=== PATIENT | female | born 1960 | race Caucasian/White ===

== ENCOUNTER → 2017-01-29 | Outpatient (CLI) | payer BC ==
[~2017-01-29] MED LIST: CATHETER FLUSH 10 ML SYR IV PRN; DOCU100T7 PO; FLAX100031 PO; HORMONE; IOHEXOL 350 MG/ML 100 ML (OMNIPAQUE 350) VIAL IV ONE; IOHEXOL 350 MG/ML 150 ML (OMNIPAQUE 350) VIAL IV ONE; NS 100 ML (IVPB) BAG IV ONE; PROBIOTIC1 EACH PO
[2017-01-29 17:48] LABS: ALBUMIN 4.5 G/DL (3.2-4.5); BILIRUBIN,TOTAL 0.4 MG/DL (0.1-1.0); CALCIUM 9.8 MG/DL (8.5-10.1); CREATININE SERUM 0.95 MG/DL (0.60-1.30); POTASSIUM 3.2 MMOL/L (3.6-5.0)
--- NOTE | 2017-01-29 18:57 | Diagnostic Imaging Report ---
PROCEDURE: CT angiography of the chest with contrast. TECHNIQUE: Multiple contiguous axial images were obtained through the chest after uneventful bolus administration of intravenous contrast. Reconstructed CTA MIP acquisitions were also performed. INDICATION: Shortness of breath. FINDINGS: The aorta appears normal. There are no pulmonary emboli. There is no hilar or mediastinal lymphadenopathy. The lungs are clear. IMPRESSION: Negative CTA chest. There is fatty infiltration of the liver. Dictated by: Dictated on workstation # [id number]
== END ==
LOC: RAD 17:02
PROVIDERS: ATTEND Nurse Practitioner Family
DX: R06.02 Shortness of breath (principal)
CPT/HCPCS: 36415; 71275; 80053

== ENCOUNTER → 2017-01-31 | Outpatient (CLI) | payer BC ==
[~2017-01-31] MED LIST changes: -CATHETER FLUSH 10 ML SYR IV PRN; -IOHEXOL 350 MG/ML 100 ML (OMNIPAQUE 350) VIAL IV ONE; -IOHEXOL 350 MG/ML 150 ML (OMNIPAQUE 350) VIAL IV ONE; -NS 100 ML (IVPB) BAG IV ONE
[2017-01-31 12:16] LABS: BASOPHILS # (AUTO) 0.1 10^3/uL (0.0-0.1); BASOPHILS % (AUTO) 1 % (0-10); EOSINOPHILS # (AUTO) 0.2 10^3/uL (0.0-0.3); EOSINOPHILS % (AUTO) 2 % (0-10); LYMPHOCYTES % (AUTO) 30 % (12-44); MEAN CORPUSCULAR HEMOGLOBIN 30 PG (25-34); MEAN CORPUSCULAR HGB CONC 35 G/DL (32-36); MEAN CORPUSCULAR VOLUME 87 FL (80-99); MEAN PLATELET VOLUME 10.4 FL (7.4-10.4); MONOCYTES # (AUTO) 0.7 X 10^3 (0.0-1.0); MONOCYTES % (AUTO) 7 % (0-12); NEUTROPHILS # (AUTO) 6.1 X 10^3 (1.8-7.8); NEUTROPHILS % (AUTO) 60 % (42-75); PLATELET COUNT 337 10^3/uL (130-400); RED BLOOD COUNT 5.13 10^6/uL (4.35-5.85); RED CELL DISTRIBUTION WIDTH 13.3 % (10.0-14.5); WHITE BLOOD COUNT 10.1 10^3/uL (4.3-11.0)
[2017-01-31 12:34] LABS: ERYTHROCYTE SEDIMENTATION RATE 4 MM/HR (0-30)
[2017-01-31 12:35] LABS: ALANINE AMINOTRANSFERASE 25 U/L (0-55); ALBUMIN 3.9 G/DL (3.2-4.5); ANION GAP 10 MMOL/L (5-14); ASPARTATE AMINO TRANSFERASE 18 U/L (5-34); BILIRUBIN,TOTAL 0.5 MG/DL (0.1-1.0); BLOOD UREA NITROGEN 20 MG/DL (7-18); BUN/CREATININE RATIO 18; CALCIUM 9.2 MG/DL (8.5-10.1); CARBON DIOXIDE 30 MMOL/L (21-32); CHLORIDE 97 MMOL/L (98-107); CREATININE SERUM 1.14 MG/DL (0.60-1.30); GFR ESTIMATED 49; GLUCOSE 137 MG/DL (70-105); POTASSIUM 3.7 MMOL/L (3.6-5.0); SODIUM 137 MMOL/L (135-145); TOTAL PROTEIN 6.8 G/DL (6.4-8.2); hs C REACTIVE PROTEIN 0.31 MG/DL (0.00-0.50)
[2017-01-31 12:41] LABS: BAND NEUTROPHILS 0 %; BASOPHILS % (MANUAL) 0 %; EOSINOPHILS % (MANUAL) 2 %; LYMPHOCYTES % (MANUAL) 35 %; NEUTROPHILS % (MANUAL) 57 %
[2017-01-31 12:42] LABS: REACTIVE LYMPHOCYTES 1 %
[2017-01-31 12:54] LABS: TROPONIN I < 0.30 NG/ML (<0.30)
== END ==
LOC: LAB 11:55
PROVIDERS: ATTEND Nurse Practitioner Family
DX: R07.89 Other chest pain (principal); R06.02 Shortness of breath
CPT/HCPCS: 36415; 80053; 84443; 84484; 85007; 85027; 85652; 86141

== ENCOUNTER → 2017-02-19 | Outpatient (CLI) | payer BC ==
--- NOTE | 2017-02-20 13:46 | ECHOCARDIOGRAPHY REPORT ---
DATE OF SERVICE: 02/19/2017 PROCEDURE: 2D echo report. REFERRING PHYSICIAN: Dr. Ally García and Dr. Delmy Rodriguez, CHIEF CRNA. INDICATION: Dyspnea, palpitation. MEASUREMENTS: LVID end diastolic 3.6, IVS thickness 1.0, LVPW thickness 1.0, left atrial diameter 2.9, ejection fraction 60%. FINDINGS: 1. Technical quality is good. 2. The left ventricle is normal in size with normal contractility, systolic function appeared to be normal. Estimated ejection fraction is 60%. 3. The left atrium is normal in size. No clot or thrombus were seen within the left atrium. 4. The right atrium and right ventricle are normal in size. No clot or thrombus were seen within the right side. 5. Mitral valve is normal in morphology with mild mitral regurgitation noted by carotid Doppler flow. Doppler across the mitral valve showed E-A reversal which is suggestive of diastolic dysfunction. 6. Aortic valve leaflets were not well visualized. There is no significant aortic valve stenosis or regurgitation seen. 7. The tricuspid valve is normal in morphology with mild tricuspid regurgitation noted by carotid Doppler flow, Doppler echo of the tricuspid valve. Estimated pulmonary artery pressure is 8 plus right atrial pressure. 8. Pulmonic valve is functioning normally. 9. Small pericardial effusion of no hemodynamic significance was noted. CONCLUSIONS: 1. Normal left ventricular size and systolic function. Estimated ejection fraction is 60%. 2. Diastolic dysfunction is suggested by Doppler. 3. Mild mitral and tricuspid regurgitation. 4. Estimated pulmonary artery pressure of 15 mmHg. Job ID: [id number] DocumentID: [id number] Dictated Date: 02/19/2017 20:38:21 Outside Sales Representative Date: 02/20/2017 11:42:58 Dictated By: AMISH CHAPMAN MD
== END ==
LOC: CARD 13:28
PROVIDERS: ATTEND Nurse Practitioner Family
DX: R00.2 Palpitations (principal); R06.02 Shortness of breath
CPT/HCPCS: 93306

== ENCOUNTER 2017-03-20 08:08 | Outpatient (RCR) | payer BC | END 2017-03-20 08:26 | disposition home or self-care (01) | LOC: LAB 08:08 | PROVIDERS: ATTEND Nurse Practitioner Family | DX: R05 Cough (principal); R06.00 Dyspnea, unspecified; R00.2 Palpitations | CPT/HCPCS: 87070; 87205 ==

== ENCOUNTER → 2017-04-02 | Outpatient (CLI) | payer BC | LOC: RT 12:30 | PROVIDERS: ATTEND Nurse Practitioner Family | DX: R05 Cough (principal); R06.00 Dyspnea, unspecified | CPT/HCPCS: 94060; 94726; 94729 ==

== ENCOUNTER → 2017-05-14 | Outpatient (CLI) | payer BC ==
--- NOTE | 2017-05-15 18:06 | Diagnostic Imaging Report ---
Bilateral screening mammogram 2D views with tomosynthesis. The current study was also evaluated with a Computer Aided Detection (CAD) system. INDICATION: Screening. No current complaints stated on the questionnaire. COMPARISON: 04/12/16 FINDINGS: The breasts are composed of scattered fibroglandular densities. There are occasional punctate calcifications seen. Stable oval nodule in the lateral aspect of the left breast from multiple prior exams with circumscribed margins is seen. Allowing for technique and positional differences, no suspicious change is seen. IMPRESSION: No significant change. ACR BI-RADS Category 2: Benign findings. Result letter will be mailed to the patient. Note: At least 10% of breast cancer is not imaged by mammography. Dictated by: Dictated on workstation # [id number]
== END ==
LOC: RAD 08:40
PROVIDERS: ATTEND Nurse Practitioner Family
DX: Z12.31 Encounter for screening mammogram for malignant neoplasm of breast (principal)
CPT/HCPCS: 77067

== ENCOUNTER 2017-05-26 09:30 | Outpatient (CLI) | payer BC | END 2017-05-26 09:45 | disposition home or self-care (01) | LOC: SLEEP 09:30 | PROVIDERS: ATTEND Nurse Practitioner Family | DX: G47.10 Hypersomnia, unspecified (principal) ==

== ENCOUNTER 2017-07-24 14:30 | Outpatient (RCR) | payer BC | END 2017-07-26 | disposition home or self-care (01) | LOC: PULM 14:30 | PROVIDERS: ATTEND Nurse Practitioner Family | DX: R06.02 Shortness of breath (principal); J44.9 Chronic obstructive pulmonary disease, unspecified | CPT/HCPCS: 99211 ==

== ENCOUNTER 2017-07-29 12:27 | Outpatient (RCR) | payer BC | END 2017-10-27 | disposition home or self-care (01) | LOC: PULM 12:27 | PROVIDERS: ATTEND Nurse Practitioner Family | DX: J44.9 Chronic obstructive pulmonary disease, unspecified (principal); R06.02 Shortness of breath ==

== ENCOUNTER → 2018-05-19 | Outpatient (CLI) | payer BC ==
--- NOTE | 2018-05-21 19:09 | Diagnostic Imaging Report ---
INDICATION: Digital mammogram bilateral screening with 3-D tomosynthesis. This study was compared to the prior exams of 05/14/17, 04/12/16 and 05/12/14. At this time, there are no current complaints. The current study was also evaluated with a Computer Aided Detection (CAD) system. FINDINGS: There are scattered fibroglandular densities in both breasts which could obscure a lesion. Overall, there does not appear to have been any significant change when compared to the prior exam. No primary or secondary sign of malignancy is noted. 3D tomographic images fail to show any sign of malignancy. IMPRESSION: There is no radiographic evidence for malignancy. ACR BI-RADS Category 1: Negative. Result letter will be mailed to the patient. Note: At least 10% of breast cancer is not imaged by mammography. Dictated by: Dictated on workstation # [id number]
== END ==
LOC: RAD 12:15
PROVIDERS: ATTEND Family Medicine
DX: Z12.31 Encounter for screening mammogram for malignant neoplasm of breast (principal)
CPT/HCPCS: 77067

== ENCOUNTER → 2018-07-09 | Outpatient (CLI) | payer BC ==
--- NOTE | 2018-07-09 16:09 | Diagnostic Imaging Report ---
INDICATION: Neck pain radiating to the left arm. TIME OF EXAM: 11:38 AM FINDINGS: Curvature is normal. Minimal anterolisthesis of C4 on C5 is seen. Degenerative disc disease at C6-C7 level is noted with disc space narrowing and marginal spurring. There is significant multilevel facet arthropathy bilaterally. Prevertebral tissues are normal. Odontoid appears intact. No fractures are seen. IMPRESSION: Cervical spondylosis and listhesis. No acute bony abnormality is detected. Dictated by: Dictated on workstation # [id number]
== END ==
LOC: RAD 10:59
PROVIDERS: ATTEND Family Medicine
DX: M47.22 Other spondylosis with radiculopathy, cervical region (principal); M43.12 Spondylolisthesis, cervical region
CPT/HCPCS: 72040

== ENCOUNTER 2018-11-24 16:39 | Emergency (ER) | payer BC ==
[~2018-11-24] VITALS: Ht 167.6 cm; Wt 101.2 kg
[2018-11-24] MEDS ORDERED: ADENOSINE 6 MG/2 ML (ADENOCARD) VIAL IV ONE (16:52)
[2018-11-24] MEDS ORDERED: NS IV 500 ML 500 ML ONE (16:53)
--- NOTE | 2018-11-24 17:03 | NUR ---
Administered 6 mg of Adenosine. Pt's rate slowed enough to note pt was in atrial flutter. Dr. Dykes present.
[2018-11-24 17:06] LABS: BASOPHILS # (AUTO) 0.1 10^3/uL (0.0-0.1); BASOPHILS % (AUTO) 1 % (0-10); EOSINOPHILS # (AUTO) 0.2 10^3/uL (0.0-0.3); EOSINOPHILS % (AUTO) 2 % (0-10); HEMATOCRIT 44 % (35-52); HEMOGLOBIN 14.9 G/DL (11.5-16.0); LYMPHOCYTES # (AUTO) 3.2 X 10^3 (1.0-4.0); LYMPHOCYTES % (AUTO) 32 % (12-44); MEAN CORPUSCULAR HEMOGLOBIN 29 PG (25-34); MEAN CORPUSCULAR HGB CONC 34 G/DL (32-36); MEAN CORPUSCULAR VOLUME 87 FL (80-99); MEAN PLATELET VOLUME 10.9 FL (7.4-10.4); MONOCYTES # (AUTO) 0.7 X 10^3 (0.0-1.0); MONOCYTES % (AUTO) 7 % (0-12); NEUTROPHILS # (AUTO) 5.9 X 10^3 (1.8-7.8); NEUTROPHILS % (AUTO) 59 % (42-75); PLATELET COUNT 297 10^3/uL (130-400); RED CELL DISTRIBUTION WIDTH 13.4 % (10.0-14.5)
--- NOTE | 2018-11-24 17:25 | NUR ---
Dr. Dykes and Dr. Hensley in room with pt.
[2018-11-24 17:30] LABS: CARBON DIOXIDE 25 MMOL/L (21-32); CHLORIDE 98 MMOL/L (98-107); INR 0.9 (0.8-1.4); POTASSIUM 3.2 MMOL/L (3.6-5.0); SODIUM 139 MMOL/L (135-145)
[2018-11-24 17:31] LABS: ALANINE AMINOTRANSFERASE 59 U/L (0-55); ALBUMIN 4.3 GM/DL (3.2-4.5); ALKALINE PHOSPHATASE 101 U/L (40-136); BILIRUBIN,TOTAL 0.5 MG/DL (0.1-1.0); BUN/CREATININE RATIO 17; CREATININE SERUM 0.89 MG/DL (0.60-1.30); GFR ESTIMATED > 60; GLUCOSE 124 MG/DL (70-105); MAGNESIUM 1.9 MG/DL (1.8-2.4); TOTAL PROTEIN 7.6 GM/DL (6.4-8.2)
[2018-11-24 17:38] LABS: MYOGLOBIN SERUM 33.5 NG/ML (10.0-92.0)
[2018-11-24] MEDS ORDERED: APIXABAN 5 MG (ELIQUIS) TABLET PO ONE (17:45)
[2018-11-24] MEDS ORDERED: KCL 10 MEQ TAB (MICRO K) PO ONE (17:45)
[2018-11-24] MEDS ORDERED: DILTIAZEM 120 MG (CARDIZEM CD) CAP PO ONE (17:45)
--- NOTE | 2018-11-24 17:51 | ED Cardiac General ---
History of Present Illness General Chief Complaint: Cardiac/General Problems Stated Complaint: HEART RACING Nursing Triage Note: Pt ambulatory to rm [address] Ruiz's office. Pt c/o tachycardia that began last night. Pt denies chest pain at this time. Source: patient, other (Dr. Ruiz) Exam Limitations: no limitations History of Present Illness Date Seen by Provider: Nov 24, 2018 Time Seen by Provider: 16:41 Initial Comments This ambulatory 58-year-old woman presents to the emergency room has a referral from Dr. Ruiz's office with complaints of tachycardia and shortness of breath. Pulse oximetry in the office noted a heart rate around 170. Pulse is too fast to count manually. Patient denies chest pain. Symptoms started last night and have been intermittent since. She has no history of tachycardia arrhythmias. On the clinical research monitor she has a narrow complex tachycardia. Allergies and Home Medications Allergies Coded Allergies: codeine (Verified Allergy, Unknown, 12/30/07) Home Medications Apixaban 5 Mg Tablet, 5 MG PO BID Prescribed by: NAMRATA HOWARD on 11/24/18 185 Diltiazem HCl 120 Mg Cap.er.24h, 120 MG PO DAILY Prescribed by: NAMRATA HOWARD on 11/24/18 185 Docusate Sodium 100 Mg Tablet, 100 MG PO DAILY, (Reported) Flaxseed Oil 1,000 Mg Capsule, 1,000 MG PO DAILY, (Reported) Lactobacillus Rhamnosus Gg 1 Each Capsule, 1 EACH PO DAILY, (Reported) Patient Home Medication List Home Medication List Reviewed: Yes Review of Systems Review of Systems Constitutional: no symptoms reported EENTM: No Symptoms Reported Respiratory: See HPI, Shortness of Air Cardiovascular: See HPI Gastrointestinal: No Symptoms Reported Genitourinary: No Symptoms Reported Musculoskeletal: no symptoms reported Skin: no symptoms reported Psychiatric/Neurological: No Symptoms Reported Endocrine: No Symptoms Reported Hematologic/Lymphatic: No Symptoms Reported Past Vmealfu-Lzfmvu-Uileyt Hx Patient Social History Alcohol Use: Denies Use Recreational Drug Use: No Smoking Status: Former Smoker Type Used: Cigarettes 2nd Hand Smoke Exposure: No Recent Foreign Travel: No Contact w/Someone Who Travel: No Recent Infectious Disease Expo: No Recent Hopitalizations: No Physical Abuse: No Sexual Abuse: No Past Medical History Surgeries: Yes Eye Surgery, Hysterectomy Respiratory: Yes Sleep Apnea, COPD Cardiac: No Neurological: No Reproductive Disorders: Yes Genitourinary: No Gastrointestinal: No Musculoskeletal: No Endocrine: Yes Diabetes, Insulin dep Cancer: No Psychosocial: No Integumentary: No Blood Disorders: Yes Physical Exam Vital Signs Vital Signs - First Documented 11/24/18 16:50 Temp 98.9 Pulse 170 Resp 35 B/P (MAP) 138/93 (108) Pulse Ox 96 O2 Delivery Room Air Capillary Refill : Less Than 3 Seconds Height, Weight, BMI Height: 5'6.00" Weight: 223lbs. oz. 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 Skin: Normal Color, Warm/Dry Progress/Results/Core Measures Results/Orders Lab Results Laboratory Tests Test 11/24/18 16:59 Range/Units White Blood Count 10.0 4.3-11.0 10^3/uL Red Blood Count 5.06 4.35-5.85 10^6/uL Hemoglobin 14.9 11.5-16.0 G/DL Hematocrit 44 35-52 % Mean Corpuscular Volume 87 80-99 FL Mean Corpuscular Hemoglobin 29 25-34 PG Mean Corpuscular Hemoglobin Concent 34 32-36 G/DL Red Cell Distribution Width 13.4 10.0-14.5 % Platelet Count 297 130-400 10^3/uL Mean Platelet Volume 10.9 H 7.4-10.4 FL Neutrophils (%) (Auto) 59 42-75 % Lymphocytes (%) (Auto) 32 12-44 % Monocytes (%) (Auto) 7 0-12 % Eosinophils (%) (Auto) 2 0-10 % Basophils (%) (Auto) 1 0-10 % Neutrophils # (Auto) 5.9 1.8-7.8 X 10^3 Lymphocytes # (Auto) 3.2 1.0-4.0 X 10^3 Monocytes # (Auto) 0.7 0.0-1.0 X 10^3 Eosinophils # (Auto) 0.2 0.0-0.3 10^3/uL Basophils # (Auto) 0.1 0.0-0.1 10^3/uL Prothrombin Time 12.0 L 12.2-14.7 SEC INR Comment 0.9 0.8-1.4 Activated Partial Thromboplast Time 27 24-35 SEC D-Dimer 0.52 H 0.00-0.49 UG/ML Sodium Level 139 135-145 MMOL/L Potassium Level 3.2 L 3.6-5.0 MMOL/L Chloride Level 98 98-107 MMOL/L Carbon Dioxide Level 25 21-32 MMOL/L Anion Gap 16 H 5-14 MMOL/L Blood Urea Nitrogen 15 7-18 MG/DL Creatinine 0.89 0.60-1.30 MG/DL Estimat Glomerular Filtration Rate > 60 BUN/Creatinine Ratio 17 Glucose Level 124 H 70-105 MG/DL Calcium Level 10.0 8.5-10.1 MG/DL Corrected Calcium 9.8 8.5-10.1 MG/DL Magnesium Level 1.9 1.8-2.4 MG/DL Total Bilirubin 0.5 0.1-1.0 MG/DL Aspartate Amino Transf (AST/SGOT) 39 H 5-34 U/L Alanine Aminotransferase (ALT/SGPT) 59 H 0-55 U/L Alkaline Phosphatase 101 40-136 U/L Myoglobin 33.5 10.0-92.0 NG/ML Troponin I < 0.028 <0.028 NG/ML Total Protein 7.6 6.4-8.2 GM/DL Albumin 4.3 3.2-4.5 GM/DL TSH [facility] 2.02 0.35-4.94 UIU/ML My Orders Orders - NAMRATA DUENAS MD Adenosine Injection (Adenocard Injection (11/24/18 16:52) Cbc With Automated Diff (11/24/18 16:57) Magnesium (11/24/18 16:57) Chest 1 View, Ap/Pa Only (11/24/18 16:57) Ekg Tracing (11/24/18 16:57) Cardiac Profile 1 (11/24/18 16:57) Comprehensive Metabolic Panel (11/24/18 16:57) Myoglobin Serum (11/24/18 16:57) Protime With Inr (11/24/18 16:57) Partial Thromboplastin Time (11/24/18 16:57) O2 (11/24/18 16:57) Monitor-Rhythm Ecg Trace Only (11/24/18 16:57) Saline Lock/Iv-Start (11/24/18 16:57) Thyroid Analyzer (11/24/18 16:57) Ns Iv 500 Ml (Sodium Chloride 0.9%) (11/24/18 16:53) Fibrin Degradation Products (11/24/18 17:39) Apixaban Tablet (Eliquis Tablet) (11/24/18 17:45) Diltiazem Cd 24 Hr Capsule (Cardizem Cd (11/24/18 17:45) Potassium Chloride (Tablet) (Klor Con Ta (11/24/18 17:45) Ct Angio Chest W (11/24/18 18:01) Iohexol Injection (Omnipaque 350 Mg/Ml 1 (11/24/18 18:15) Contrast Received (Contrast Received) (11/24/18 18:15) Ns (Ivpb) (Sodium Chloride 0.9% Ivpb Bag (11/24/18 18:15) Medications Given in ED Current Medications Medications Dose Ordered Sig/Shila Route Start Time Stop Time Status Last Admin Dose Admin Adenosine 6 mg STK-MED ONCE IV 11/24/18 16:52 11/24/18 16:57 DC 11/24/18 17:03 6 MG Apixaban 5 mg ONCE ONCE PO 11/24/18 17:45 11/24/18 17:46 DC 11/24/18 17:55 5 MG Diltiazem HCl 120 mg ONCE ONCE PO 11/24/18 17:45 11/24/18 17:46 DC 11/24/18 17:55 120 MG Iohexol 150 ml ONCE ONCE IV 11/24/18 18:15 11/24/18 18:38 DC 11/24/18 18:22 140 ML Potassium Chloride 40 meq ONCE ONCE PO 11/24/18 17:45 11/24/18 17:46 DC 11/24/18 17:55 40 MEQ Sodium Chloride 100 ml ONCE ONCE IV 11/24/18 18:15 11/24/18 18:38 DC 11/24/18 18:22 80 ML Sodium Chloride 500 ml @ ud STK-MED ONCE .ROUTE 11/24/18 16:53 11/24/18 16:58 DC 11/24/18 16:57 500 MLS/HR Vital Signs/I&O 11/24/18 11/24/18 16:50 19:15 Temp 98.9 98.7 Pulse 170 105 Resp 35 17 B/P (MAP) 138/93 (108) 127/50 (75) Pulse Ox 96 96 O2 Delivery Room Air Room Air Blood Pressure Mean: 108 Progress Progress Note : Progress Note Patient was thought to have SVT with a narrow complex tachycardia at a rate of around 170. She was given adenosine 6 mg in an IV push. This unmasked the atrial rhythm confirming diagnosis of atrial flutter. A short time later patient spontaneously converted from atrial flutter with RVR to sinus tachycardia. Case was discussed with Dr. Hensley who presented to the ER to assess the patient personally. He recommended starting Cardizem CD 120 mg daily along with anticoagulation with Eliquis. First doses of both medications were given in the ER. Dr. Hensley also recommended performing a d-dimer as patient remained tachycardic persistently after conversion to sinus rhythm. D- dimer was elevated and CT angiogram of the chest was obtained. EKG #1: EKG Time: 16:59 Rate: 112 Comment This EKG demonstrates atrial flutter with administration of adenosine unmasking the atrial rhythm. EKG #2: EKG Time: 17:00 Rate: 110 Comment This EKG demonstrates atrial flutter with rapid ventricular response converting to sinus tachycardia. No ST elevation or depression. Diagnostic Imaging Diagonstic Imaging: CT Plain Films/CT/US/NM/MRI: chest Comments CT angiogram of the chest viewed by me and report reviewed. See report below: NAME: BATSHEVA [facility] REC#: [id number] PT STATUS: REG ER : 1960 PHYSICIAN: NAMRATA DUENAS MD ADMIT DATE: 11/24/18/ER Draft Date of Exam:11/24/18 CT ANGIO CHEST W PROCEDURE: CT angiography of the chest with contrast. TECHNIQUE: Multiple contiguous axial images were obtained through the chest after uneventful bolus administration of intravenous contrast. 2D reconstructed CTA MIP acquisitions were also performed. INDICATION: Tachycardia. FINDINGS: The lungs are clear. There is no hilar or mediastinal lymphadenopathy. There is no effusion or pneumothorax. There are no pulmonary emboli. Aorta appears normal. Heart size is normal. There is no pericardial effusion. IMPRESSION: Negative CTA chest. Dictated on workstation # [id number] Dict: 11/24/18 1846 Trans: 11/24/18 1856 [id number] Interpreted by: MAR CARDENAS MD Departure Impression Primary Impression: Atrial flutter with rapid ventricular response Additional Impression: Hypokalemia Disposition: HOME, SELF-CARE Condition: Improved Departure-Patient Inst. Decision time for Depature: 19:00 Referrals: Imelda HENSLEY MD, DANIEL J MD (PCP/Family) Primary Care Physician Patient Instructions: Atrial Flutter Add. Discharge Instructions: Use your medications as prescribed. If you have a recurrent episode of atrial flutter with rapid heart rate, you may take an extra Cardizem cd. If this does not resolve your symptoms within 30 minutes, return to the emergency room. If you have another episode with more severe symptoms, do not wait for the second dose before coming to the ER. Follow-up with Dr. Hensley as soon as possible. Please call his office for an appointment. Return to care if you have any other concerns or problems. All discharge instructions reviewed with patient and/or family. Voiced understanding. Scripts Diltiazem HCl (Cardizem Cd) 120 Mg Cap.er.24h 120 MG PO DAILY, #30 CAP Prov: NAMRATA DUENAS MD 11/24/18 Apixaban (Eliquis) 5 Mg Tablet 5 MG PO BID, #60 TAB Prov: NAMRATA DUENAS MD 11/24/18 Copy Copies To 1: Imelda HENSLEY MD Copies To 2: TIN RUIZ MD, JOSHUA T MD Nov 24, 2018 17:51
[2018-11-24] MEDS ORDERED: RECEIVED CONTRAST (Hold Metformin) IV SCH (18:15)
[2018-11-24] MEDS ORDERED: NS 100 ML (IVPB) BAG IV ONE (18:15)
[2018-11-24] MEDS ORDERED: IOHEXOL 350 MG/ML 150 ML (OMNIPAQUE 350) VIAL IV ONE (18:15)
[2018-11-24] MEDS ORDERED: DILT120C82 PO (18:51)
[2018-11-24] MEDS ORDERED: APIX5TAB PO (18:51)
--- NOTE | 2018-11-24 18:56 | Diagnostic Imaging Report ---
PROCEDURE: CT angiography of the chest with contrast. TECHNIQUE: Multiple contiguous axial images were obtained through the chest after uneventful bolus administration of intravenous contrast. 2D reconstructed CTA MIP acquisitions were also performed. INDICATION: Tachycardia. FINDINGS: The lungs are clear. There is no hilar or mediastinal lymphadenopathy. There is no effusion or pneumothorax. There are no pulmonary emboli. Aorta appears normal. Heart size is normal. There is no pericardial effusion. IMPRESSION: Negative CTA chest. Dictated by: Dictated on workstation # [id number]
[2018-11-24 19:15] VITALS: BP 127/50
--- NOTE | 2018-11-24 19:21 | Consultation-Cardiology ---
HPI-Cardiology Cardiology Consultation: Date of Consultation 11/24/18 Date of Admission Attending Physician Admitting Physician Hans Raymond MD Consulting Physician Imelda HENSLEY MD HPI: Time Seen by a Provider: 17:15 Chief Complaint: Palpitations This is a 58 year old lady with no past cardiac history. She presents to her PCP office with tachycardia and shortness of breath. She presented then to the ER. She denies chest pain, syncope, or near syncope. Her symptoms began last night and then subsided and started again this morning. Review of Systems-Cardiology Review of Systems Constitutional: As described under HPI; No As described under HPI, No no symptoms reported, No chills, No fever, No lightheadedness Eyes: No As described under HPI, No no symptoms reported, No blindness, No blurred vision, No contact lenses, No drainage, No decreased acuity, No foreign body sensation, No pain, No vision change Ears/Nose/Throat: No As described under HPI, No no symptoms reported, No chronic hearing loss, No ear discharge, No ear pain, No nasal drainage, No ulcerations Respiratory: No no symptoms reported; As described under HPI; No As described under HPI, No cough, No orthopnea; shortness of breath; No SOB with excertion Cardiovascular: No no symptoms reported; As described under HPI; No As described under HPI, No chest pain, No edema, No irregular heart rate, No lightheadedness; palpitations Gastrointestinal: No no symptoms reported, No As described under HPI, No abdomen distended, No abdominal pain, No blood streaked bowels, No constipation , No diarrhea, No nausea, No vomiting, No stool coloration changes Genitourinary: No As described under HPI, No burning, No dysuria, No discharge , No frequency, No flank pain, No hematuria, No urgency : Yes : No Skin: No rash, No skin related problems, No ulcerations Psychiatric/Neurological: No anxiety, No depression, No seizure, No focal weakness, No syncope Hematologic: No bleeding abnormalities [id number]-[id number] Hx Patient Social History Alcohol Use: Denies Use Recreational Drug Use: No Smoking Status: Former Smoker Type Used: Cigarettes 2nd Hand Smoke Exposure: No Recent Foreign Travel: No Recent Infectious Disease Expo: No Hospitalization with Isolation: Denies Past Medical History PMH As described under Assessment. Allergies and Home Medications Allergies Coded Allergies: codeine (Verified Allergy, Unknown, 12/30/07) Home Medications Apixaban 5 Mg Tablet, 5 MG PO BID Prescribed by: NAMRATA HOWARD on 11/24/181850 Diltiazem HCl 120 Mg Cap.er.24h, 120 MG PO DAILY Prescribed by: NAMRATA HOWARD on 11/24/181850 Docusate Sodium 100 Mg Tablet, 100 MG PO DAILY, (Reported) Flaxseed Oil 1,000 Mg Capsule, 1,000 MG PO DAILY, (Reported) Lactobacillus Rhamnosus Gg 1 Each Capsule, 1 EACH PO DAILY, (Reported) Patient Home Medication List Home Medication List Reviewed: Yes Physical Exam-Cardiology Physical Exam Vital Signs/I&O 11/24/18 11/24/18 16:50 19:15 Temp 98.9 98.7 Pulse 170 105 Resp 35 17 B/P (MAP) 138/93 (108) 127/50 (75) Pulse Ox 96 96 O2 Delivery Room Air Room Air Capillary Refill : Less Than 3 Seconds Constitutional: appears stated age, AAO x 3; No apparent distress; well- developed, well-nourished HEENT: PERRL; No normal ENT inspection, No TMs normal, No pharynx normal, No scleral icterus (R), No scleral icterus (L), No pale conjunctivae (R), No pale conjunctivae (L), No photophobia, No TM abnormal (R), No TM abnormal (L), No pharyngeal erythema, No tonsillar exudate, No other, No discharge, No EOMI; hearing is well preserved; No hard of hearing; oral hygience is good; No ulceration, No xanthelasmas are seen Neck: No non-tender, No full range of motion, No supple, No normal inspection, No carotid bruit, No limited range of motion, No lymphadenopathy (R), No lymphadenopathy (L), No tender lateral, No tender midline, No thyromegaly, No other; carotid pulses are 2 + bilaterally; No with good upstrokes Respiratory: No accessory muscle use, No respiratory distress, No chest tender , No chest expansion is symmetric; chest is bilaterally symmetric; No lungs clear to percussion; lungs clear to auscultation; No crackles, No rhonchi, No rales, No stridor, No wheezing, No pleural rub, No other Cardiovascular: regular rate-rhythm; No irregularly irregular, No extra beats, No parasternal heave is noted, No JVD, No edema, No bradycardia; tachycardia; No point of maximal impulse, No cardiac thrills are palpable; S1 and S2; No gallop/S3, No gallop/S4, No diastolic murmur, No systolic murmur, No friction rub, No click, No other Gastrointestinal: No tender, No soft, No round, No distended, No pulsatile mass , No organomegaly, No guarding, No rebound, No tenderness, No hernia, No mass, No audible bowel sounds, No abnormal bowel sounds, No abdominal bruits, No spleenomegaly, No other Rectal: deferred Extremities: No normal range of motion, No non-tender, No normal inspection, No pedal edema, No calf tenderness, No normal capillary refill, No pelvis stable , No calf tenderness, No inflammation, No pedal edema, No slow capillary refill , No swelling, No other, No abrasion, No clubbing, No cyanosis, No ecchymosis, No laceration, No no lower extremity edema bilateral, No significant edema, No tenderness, No wound Neurologic/Psychiatric: no motor/sensory deficits, alert, normal mood/affect, oriented x 3, power is 5/5 both on sides Skin: No normal color, No warm/dry, No cyanosis, No cool, No diaphoresis, No damp, No ecchymosis, No jaundice, No mottled, No pallor, No rash, No tattoos/ piercings, No ulcerations, No rash on exposed areas, No ulcerations on exposed areas, No other Data Review Labs Laboratory Tests 11/24/18 16:59: White Blood Count 10.0, Red Blood Count 5.06, Hemoglobin 14.9, Hematocrit 44, Mean Corpuscular Volume 87, Mean Corpuscular Hemoglobin 29, Mean Corpuscular Hemoglobin Concent 34, Red Cell Distribution Width 13.4, Platelet Count 297, Mean Platelet Volume 10.9H, Neutrophils (%) (Auto) 59, Lymphocytes (%) (Auto) 32 , Monocytes (%) (Auto) 7, Eosinophils (%) (Auto) 2, Basophils (%) (Auto) 1, Neutrophils # (Auto) 5.9, Lymphocytes # (Auto) 3.2, Monocytes # (Auto) 0.7, Eosinophils # (Auto) 0.2, Basophils # (Auto) 0.1, Prothrombin Time 12.0L, INR Comment 0.9, Activated Partial Thromboplast Time 27, D-Dimer 0.52H, Sodium Level 139, Potassium Level 3.2L, Chloride Level 98, Carbon Dioxide Level 25, Anion Gap 16H, Blood Urea Nitrogen 15, Creatinine 0.89, Estimat Glomerular Filtration Rate > 60, BUN/Creatinine Ratio 17, Glucose Level 124H, Calcium Level 10.0, Corrected Calcium 9.8, Magnesium Level 1.9, Total Bilirubin 0.5, Aspartate Amino Transf (AST/SGOT) 39H, Alanine Aminotransferase (ALT/SGPT) 59H, Alkaline Phosphatase 101, Myoglobin 33.5, Troponin I < 0.028, Total Protein 7.6 , Albumin 4.3, TSH [place] Testing 2.02 ECG Impression ECG Comment atrial flutter with RVR A/P-Cardiology Assessment/Admission Diagnosis Atrial Flutter with RVR, Shortness of breath, Positive D Dimer, Sinus tachycardia Plan Atrial Flutter with RVR - as given adenosine 6mg iv x1 which resulted with brief AV block and typical atrial flutter waves were observed. Patient continued in Atrial flutter and then spontaneously converted to sinus tachycardia. Cardizem 120mg daily. Eliquis 5 mg bid. discussed at length about atrial flutter and afib. stroke prevention was discussed. EP study and ablation was also discussed. I will follow her in the clinic in the next 7-10 days. Positive D Dimer, Sinus tachycardia and shortness of breath - CTA negative for PE. Thank you for your consultation. Please call me if you have any questions. Estefani Hensley MD, FACP, FACC, FSCAI, FHRS, CCDS Interventional Cardiology Cardiac Electrophysiology Vascular Medicine and Endovascular Interventions Imelda HENSLEY MD Nov 24, 2018 19:21
--- NOTE | 2018-11-25 08:24 | Diagnostic Imaging Report ---
INDICATION: Arrhythmia EXAM: Portable chest at 5:19 PM FINDINGS: Heart size and pulmonary vascularity are normal. The lungs are clear. There are no effusions or pneumothoraces. IMPRESSION: Negative chest. Dictated by: Dictated on workstation # [id number]
== END 2018-11-24 19:15 | disposition home or self-care (01) ==
LOC: EDUNIT# 16:39 → ER 16:41
DX: I48.92 Unspecified atrial flutter (principal); E87.6 Hypokalemia; G47.30 Sleep apnea, unspecified; J44.9 Chronic obstructive pulmonary disease, unspecified; E11.9 Type 2 diabetes mellitus without complications; Z88.5 Allergy status to narcotic agent; Z79.01 Long term (current) use of anticoagulants; Z87.891 Personal history of nicotine dependence; Z90.710 Acquired absence of both cervix and uterus; Z98.890 Other specified postprocedural states
CPT/HCPCS: 36415; 71045; 71275; 80053; 83735; 83874; 84443; 84484; 85025; 85379; 85610; 85730; 93005; 93041

== ENCOUNTER → 2018-12-02 | Outpatient (CLI) | payer BC ==
[~2018-12-02] MED LIST changes: +APIX5TAB PO; +DILT120C82 PO
== END ==
LOC: CARD 09:26
PROVIDERS: ATTEND Internal Medicine Interventional Cardiology
DX: I48.3 Typical atrial flutter (principal); I07.1 Rheumatic tricuspid insufficiency
CPT/HCPCS: 93306

== ENCOUNTER 2018-12-11 10:30 | Outpatient (CLI) | payer BC ==
[~2018-12-11] VITALS: Ht 167.6 cm; Wt 100.2 kg
[2018-12-11] MEDS ORDERED: APIX5TAB PO (11:01)
[2018-12-11] MEDS ORDERED: DILT120C53 PO (11:01)
[2018-12-11] MEDS ORDERED: FLAX10004 PO (11:01)
[2018-12-11] MEDS ORDERED: METF-399 PO (11:01)
[2018-12-11] MEDS ORDERED: FLUT1BLS IH (11:01)
[2018-12-11] MEDS ORDERED: LACT1CAP39 PO (11:01)
[2018-12-11] MEDS ORDERED: MONT10TA24 PO (11:01)
[2018-12-11] MEDS ORDERED: HYDR50TA3 PO (11:01)
[2018-12-11] MEDS ORDERED: GLYB5TAB6 PO (11:01)
[2018-12-11] MEDS ORDERED: POTA-51 PO (11:01)
== END 2018-12-11 11:03 ==
LOC: PREOP 10:30
PROVIDERS: ATTEND Internal Medicine Interventional Cardiology
DX: Z01.818 Encounter for other preprocedural examination (principal)

== ENCOUNTER 2018-12-14 05:51 | Day surgery (SDC) | payer BC ==
[~2018-12-14] VITALS: Ht 167.6 cm; Wt 100.2 kg
[~2018-12-14 05:51] MED LIST changes: +DILT120C53 PO; +FLAX10004 PO; +FLUT1BLS IH; +GLYB5TAB6 PO; +HYDR50TA3 PO; +LACT1CAP39 PO; +METF-399 PO; +MONT10TA24 PO; +POTA-51 PO
[2018-12-14] MEDS ORDERED: NS IV 1000 ML 1,000 ML ONE (06:18)
[2018-12-14] MEDS ORDERED: NS IV 1000 ML 1,000 ML IV SCH (06:19)
[2018-12-14] MEDS ORDERED: ISOPROTERENOL 0.2 MG/100 ML D5W IV ONE (06:30)
[2018-12-14 06:46] VITALS: BP 145/86
[2018-12-14 06:51] LABS: HEMOGLOBIN 14.4 G/DL (11.5-16.0); MEAN PLATELET VOLUME 10.2 FL (7.4-10.4); RED CELL DISTRIBUTION WIDTH 13.2 % (10.0-14.5)
[2018-12-14 07:03] LABS: INR 0.9 (0.8-1.4); PROTHROMBIN TIME PATIENT 12.3 SEC (12.2-14.7)
[2018-12-14] MEDS ORDERED: MIDAZOLAM 2 MG/2 ML (VERSED) VIAL ONE (07:10)
[2018-12-14] MEDS ORDERED: fentaNYL INJECTION 100 MCG/2 ML AMP ONE ×2 (07:11→09:58)
[2018-12-14] MEDS ORDERED: proPOfol 200 MG/20 ML (DIPRIVAN) VIAL IV ONE (07:11)
[2018-12-14 07:15] LABS: ALANINE AMINOTRANSFERASE 45 U/L (0-55); ALBUMIN 4.1 GM/DL (3.2-4.5); ALKALINE PHOSPHATASE 98 U/L (40-136); BILIRUBIN,TOTAL 0.4 MG/DL (0.1-1.0); BUN/CREATININE RATIO 17; CALCIUM 9.8 MG/DL (8.5-10.1); CARBON DIOXIDE 29 MMOL/L (21-32); CHLORIDE 100 MMOL/L (98-107); CREATININE SERUM 0.87 MG/DL (0.60-1.30); GFR ESTIMATED > 60; GLUCOSE 150 MG/DL (70-105); POTASSIUM 3.2 MMOL/L (3.6-5.0); SODIUM 140 MMOL/L (135-145); TOTAL PROTEIN 7.2 GM/DL (6.4-8.2)
[2018-12-14] MEDS ORDERED: CETI10TA23 PO (07:26)
[2018-12-14] MEDS ORDERED: morphine INJ 10 MG/ML 1ML (SYR OR VIAL) IVP ONE (07:45)
[2018-12-14] MEDS ORDERED: MEPERIDINE (DEMEROL) INJ 50 MG/ML IVP ONE (07:45)
[2018-12-14] MEDS ORDERED: FLU QUADRIvalent (5+ YOA) 2018-2019 (AFLURIA) 0.5 ML IM ONE (08:00)
[2018-12-14] MEDS ORDERED: ROCURONIUM 10 MG/ML 5 ML SYRINGE IV ONE (08:24)
[2018-12-14] MEDS ORDERED: SUCCINYLCHOLINE INJ 100 MG/5 ML SYR ONE (08:24)
[2018-12-14] MEDS ORDERED: LIDOCAINE 1% INJ 20 ML 20 ML VIAL ONE (08:29)
[2018-12-14] MEDS ORDERED: HEParin (CATH LAB) 2,000 ML IV ONE (08:29)
[2018-12-14] MEDS ORDERED: PHENYLEPHRINE 100 MCG/ML 10 ML (ANESTHESIA) SYR ONE (08:32)
--- NOTE | 2018-12-14 10:57 | Cardiac Procedure Note-CS/ASA ---
Pre-Procedure Note Pre-Op Procedure Note H&P Reviewed The H&P was reviewed, patient examined and no changes noted. Date H&P Reviewed: Dec 14, 2018 Time H&P Reviewed: 08:25 Conscious Sedation Pre-Proced Time 08:25 ASA Score 3 For ASA 3 and 4: Consider anesthesia and medical clearance. Also, for patients with a history of failed moderate sedation consider anesthesia. Airway Lungs Heart ASA score ASA 1: a normal healthy patient ASA 2: a patient with a mild systemic disease (mid diabetes, controlled hypertension, obesity ASA 3: a patient with a severe systemic disease that limits activity (angina , COPD, prior Myocardial infarction) ASA 4: a patient with an incapacitating disease that is a constant threat to life (CHF, renal failure) ASA 5: a moribund patient not expected to survive 24 hrs. (ruptured aneurysm) ASA 6: a declared brain- patient whose organs are being harvested. For emergent operations, add the letter E after the classification Mallampati Classification Grade 1 Sedation Plan Analgesia, Amnesia, Plan communicated to team members, Discussed options with patient/fam, Discussed risks with patient/fam The patient is an appropriate candidate to undergo the planned procedure, sedation, and anesthesia. The patient immediately re-assessed prior to indication. Imelda PELAEZ MD Dec 14, 2018 10:57
--- NOTE | 2018-12-14 10:58 | Electrophysiology Procedure ---
EP Procedure DATE OF SERVICE:12/14/18 CARDIAC FURNITURE MAKER: Estefani Hensley MD, [facility], [facility]. INDICATION: Typical atrial flutter. PREOPERATIVE DIAGNOSIS: Typical atrial flutter. POSTOPERATIVE DIAGNOSES: Successful typical atrial flutter ablation. HISTORY: This is a 58-year-old lady who presented to the ER with very symptomatic typical atrial flutter. The patient is planned for comprehensive EP study and ablation. PROCEDURE PERFORMED: 1. Comprehensive EP study with induction. 2. Fluoroscopy. 3. CS pacing. 4. Drug infusion. 5. Ablation of typical atrial flutter. 6. Comprehensive 3D mapping with the carto system. COMPLICATION: None. ESTIMATED BLOOD LOSS: 10 mL. CONTRAST USED: None. FLUOROSCOPY TIME: 7 minutes FLUOROSCOPY DOSE: 159 mgy. SPECIMENS: None. ANESTHESIA: Done by our anesthesia colleagues. ANTICOAGULATION: Eliquis was held 3 days ago. PROCEDURE IN DETAIL: After informed consent was taken, the patient was brought to the EP lab. Anesthesia was provided by our anesthesia colleagues. The patient was draped and prepped in the usual sterile fashion. The patient presented to the EP lab in sinus rhythm. Access was gained in the right femoral vein with a 6-[place] and an 8-[place] sheath. Left access in left femoral vein was gained with 5-[place] and 6-[place] sheath respectively. High right atrial catheter was an ablation catheter, right ventricular catheter was placed, his catheter and the CS catheter were also placed. A comprehensive EP study was done including a CS pacing. Typical atrial flutter was not induced with rapid atrial pacing. A 3D electroanatomic mapping was donewith the carto system. Patient did not have dual AV slick physiology. Short run of focal atrial tachycardia with likely septal region was induced on Isuprel. However, this was only for 8-10 beats and we could not sustain it. Ablation was performed in the cavotricuspid isthmus.CS pacing and pacing from the ablation catheter at different positions on the lateral side of the ablation line were used to verify bidirectional block. We then waited for 30 minutes and rechecked and confirmed bidirectional block.Isuprel was given post-procedure, however, we could not induce atrial flutter.The patienttolerated the procedure well and did not have any complication. The patientleft the lab in sinus rhythm. Total ablation time was 447 seconds. MEASUREMENTS/EP STUDY: AH interval 890 ms, AH interval 61 ms, HV interval 39 ms, AV Wenckebach cycle length 380 ms, Retrograde Wenckebach at 260 ms, Atrial ERP 600/260 ms, Ventricular ERP 600/280 ms. post-ablation AV Wenckebach at 280 ms, Post-ablation retrograde Wenckebach when pacing at 240 ms. Post-ablation atrial ERP 450/210 ms, Post-ablation ventricular ERP was 450/220 ms. PLAN: The patient will be observed overnight and will be discharged home tomorrow with precise followup instructions. Estefani Hensley MD, RS, CCDS Cardiac Electrophysiology Imelda HENSLEY MD Dec 14, 2018 10:58 am
[2018-12-14] MEDS ORDERED: PATIENT MAY USE OWN MEDS, ALL PO SCH (11:00)
[2018-12-14] MEDS ORDERED: LACTATED RINGERS 1,000 ML IV ONE (11:05)
[2018-12-14] MEDS ORDERED: ONDANSETRON 4 MG/2 ML (SDV) Z0FRAN ONE (11:07)
[2018-12-14] MEDS ORDERED: SEVOFLURANE (ULTANE) 15 ML INHAL SOLN ONE (11:09)
[2018-12-14 12:30] VITALS: BP 131/79
[2018-12-14 12:45] VITALS: BP 129/75
[2018-12-14] MEDS: NS IV 1000 ML 1,000 ML IV SCH ×2 (12:52→22:22)
[2018-12-14] MEDS: ONDANSETRON 4 MG/2 ML (SDV) Z0FRAN IVP PRN (13:16)
--- NOTE | 2018-12-14 13:36 | Anesthesia-General Post-Op ---
General Patient Condition Mental Status/LOC: Same as Preop Cardiovascular: Satisfactory Nausea/Vomiting: Absent Respiratory: Satisfactory Pain: Controlled Complications: Absent Post Op Complications Complications None Follow Up Care/Instructions Patient Instructions None needed. Anesthesia/Patient Condition Patient Condition Patient is doing well, no complaints, stable vital signs, no apparent adverse anesthesia problems. No complications reported per nursing. МАРИЯ RIVERA CRNA Dec 14, 2018 13:35
[2018-12-14 16:00] VITALS: BP 124/70
[2018-12-14 20:00] VITALS: BP 125/55
[2018-12-14] MEDS: APIXABAN 5 MG (ELIQUIS) TABLET PO SCH (20:21)
[2018-12-14] MEDS: ACETAMINOPHEN 325 MG TABLET PO PRN (20:21)
[2018-12-15] VITALS: BP 110/55
[2018-12-15 04:00] VITALS: BP 121/65
[2018-12-15 04:30] LABS: HEMOGLOBIN 13.4 G/DL (11.5-16.0); MEAN PLATELET VOLUME 10.2 FL (7.4-10.4); RED CELL DISTRIBUTION WIDTH 13.4 % (10.0-14.5); WHITE BLOOD COUNT 8.3 10^3/uL (4.3-11.0)
[2018-12-15 04:48] LABS: BUN/CREATININE RATIO 12; CALCIUM 9.1 MG/DL (8.5-10.1); CARBON DIOXIDE 26 MMOL/L (21-32); CHLORIDE 103 MMOL/L (98-107); CREATININE SERUM 0.81 MG/DL (0.60-1.30); GFR ESTIMATED > 60; GLUCOSE 152 MG/DL (70-105); POTASSIUM 3.6 MMOL/L (3.6-5.0); SODIUM 141 MMOL/L (135-145)
[2018-12-15] MEDS: NS IV 1000 ML 1,000 ML IV SCH (07:13)
[2018-12-15] MEDS: APIXABAN 5 MG (ELIQUIS) TABLET PO SCH (08:34)
[2018-12-15] MEDS: ACETAMINOPHEN 325 MG TABLET PO PRN (08:39)
--- NOTE | 2018-12-15 19:54 | Cardiology Discharge Summary ---
Diagnosis/Chief Complaint Date of Admission 12/14/2018 Date of Discharge 12/15/2018 Admission Diagnosis Typical atrial flutter Final/Discharge Diagnosis Typical atrial flutter, successful ablation Chief Complaint/HPI Chief Complaint/HPI This is a 58-year-old lady with history of typical atrial flutter. EP study and typical atrial flutter ablation is recommended. Discharge Summary Procedures Comprehensive EP study and typical atrial flutter ablation was performed. Discharge Physical Examination Stable Hospital Course Was the Problem List Reviewed?: Yes Unremarkable Discussion & Recommendations Discussion Patient will be discharged with an event monitor. All discharge instructions were discussed at length. Patient will continue Eliquis. Follow up appt.: Dr. Hensley in 2-3 weeks. Dicharge Diet: Regular Diet Activity as Tolerated: Yes Home Medications Reviewed patient Home Medication Reconciliation performed by pharmacy medication reconciliations maintenance shop technician and/or nursing. Patients Allergies have been reviewed. Discharge Home Medications: Reviewed and agree with Discharge Medication list on patient's Discharge Instruction sheet Condition at discharge Stable. Instructions to patient/family Discussed at length with the patient and family. Imelda HENSLEY MD Dec 15, 2018 19:54
== END 2018-12-15 10:14 | disposition home or self-care (01) ==
LOC: CATH 05:51 → ICU 12:27 → CATH 12-15 10:14
PROVIDERS: ATTEND Internal Medicine Interventional Cardiology
DX: I48.3 Typical atrial flutter (principal); E11.9 Type 2 diabetes mellitus without complications; J44.9 Chronic obstructive pulmonary disease, unspecified; Z87.891 Personal history of nicotine dependence; Z79.01 Long term (current) use of anticoagulants; Z79.84 Long term (current) use of oral hypoglycemic drugs; Z79.899 Other long term (current) drug therapy
CPT/HCPCS: 36415; 80048; 80053; 82962; 85027; 85610; 85730; 87081; 93005; 93613; 93621; 93623; 93653

== ENCOUNTER 2018-12-15 10:24 | Outpatient (RCR) | payer BC ==
[~2018-12-15 10:24] MED LIST changes: +CETI10TA23 PO
== END 2019-03-15 | disposition home or self-care (01) ==
LOC: CARD 10:24
PROVIDERS: ATTEND Internal Medicine Interventional Cardiology
DX: I48.0 Paroxysmal atrial fibrillation (principal)
CPT/HCPCS: 93270

== ENCOUNTER 2019-01-28 08:21 | Day surgery (SDC) | payer BC ==
[~2019-01-28] VITALS: Ht 167.6 cm; Wt 99.8 kg
[2019-01-28] MEDS ORDERED: LIDOCAINE 1% INJ 20 ML 20 ML VIAL ONE (08:25)
--- OUTSIDE RECORDS SUMMARY | 2019-01-28 08:29 | XMS REPORT | CCD ---
Author Author [facility] Address [address] [place] [address] Phone Care Team Providers Care Catechist Name Role Phone PP Unavailable CCM Unavailable Summary Purpose Interface Exchange Insurance Providers Payer name Policy type / Coverage type Covered libertarian ID Effective Begin Date Effective End Date Blue Cross [facility] Blue Cross/[facility] [id number] Unknown Unknown Family history Father Diagnosis Age At Onset Arthritis Unknown Sister Diagnosis Age At Onset Arthritis Unknown Cancer Unknown kidney disease Unknown Mother Diagnosis Age At Onset Hypertension Unknown Stroke Unknown Osteoporosis Unknown Social History Social History Element Codes Description Effective Dates Marital status Unknown Navdeep 01/31/2017 Number of children Unknown 3 03/30/[address]: 6730744 Former smoker 03/30/2015 Allergies, Adverse Reactions, Alerts Allergies, Adverse Reactions, Alerts data not found Past Medical History Illness Codes Condition Status Onset Date Resolved Date Localized edema ICD-9 : 782.3 ICD-10: R60.0 Active 10/13/2017 Unknown Contact with and (suspected) exposure to mold (toxic) ICD-9: V87.31 ICD-10: Z77.120 Active 04/22/2017 Unknown Essential (primary) hypertension ICD-9: 401.9 ICD-10: I10 Active 06/10/2016 Unknown Mild intermittent asthma with (acute) exacerbation ICD-9: 493.12 ICD-10: J45.21 Active 04/22/2017 Unknown Shortness of breath ICD-9: 786.05 ICD-10: R06.02 Active 01/31/2017 Unknown Acute laryngopharyngitis ICD-9: 465.0 ICD-10: J06.0 Active 12/10/2016 Unknown Other allergic rhinitis ICD-9: 477.8 ICD-10: J30.89 Active 01/31/2017 Unknown Acute bronchitis, unspecified ICD-9: 466.0 ICD-10: J20.9 Active 01/24/2017 Unknown Cough ICD-9: 786.2 ICD-10: R05 Active 01/24/2017 Unknown Mixed hyperlipidemia ICD-9: 272.2 ICD-10: E78.2 Active 06/10/2016 Unknown Streptococcal pharyngitis ICD-9: 034.0 ICD-10: J02.0 Active 09/25/2015 Unknown DYSURIA ICD-9: 788.1 Active 05/03/2015 Unknown CHEST SWELLING/MASS/LUMP ICD-9: 786.6 Active 04/16/2015 Unknown Hyperlipidemia Unknown Active 03/30/2015 Unknown Hypertension Unknown Active 03/30/2015 Unknown Biceps tendonitis ICD- 9: 726.12 Active 03/29/2015 Unknown EDEMA ICD-9: 782.3 Active 03/29/2015 Unknown Elevated blood sugar ICD-9: 790.29 Active 03/29/2015 Unknown ESSENTIAL HYPERTENSION ICD-9: 401.9 Active 03/29/2015 Unknown Neck fullness ICD-9: 784.2 Active 03/29/2015 Unknown Problems Condition Codes Effective Dates Condition Status Localized edema ICD-9 : 782.3 ICD-10: R60.0 10/13/2017 Active Contact with and (suspected) exposure to mold (toxic) ICD-9: V87.31 ICD-10: Z77.120 04/22/2017 Active Essential (primary) hypertension ICD-9: 401.9 ICD-10: I10 06/10/2016 Active Mild intermittent asthma with (acute) exacerbation ICD-9: 493.12 ICD-10: J45.21 04/22/2017 Active Shortness of breath ICD-9: 786.05 ICD-10: R06.02 01/31/2017 Active Acute laryngopharyngitis ICD-9: 465.0 ICD-10: J06.0 12/10/2016 Active Other allergic rhinitis ICD-9: 477.8 ICD-10: J30.89 01/31/2017 Active Acute bronchitis, unspecified ICD-9: 466.0 ICD-10: J20.9 01/24/2017 Active Cough ICD-9: 786.2 ICD-10: R05 01/24/2017 Active Mixed hyperlipidemia ICD-9: 272.2 ICD-10: E78.2 06/10/2016 Active Streptococcal pharyngitis ICD-9: 034.0 ICD-10: J02.0 09/25/2015 Active DYSURIA ICD-9: 788.1 05/03/2015 Active CHEST SWELLING/MASS/LUMP ICD-9: 786.6 04/16/2015 Active Hyperlipidemia Unknown 03/30/2015 Active Hypertension Unknown 03/30/2015 Active Biceps tendonitis ICD- 9: 726.12 03/29/2015 Active EDEMA ICD-9: 782.3 03/29/2015 Active Elevated blood sugar ICD-9: 790.29 03/29/2015 Active ESSENTIAL HYPERTENSION ICD-9: 401.9 03/29/2015 Active Neck fullness ICD-9: 784.2 03/29/2015 Active Medications Medication Codes Instructions Start Date Stop Date Status Fill Instructions Lasix 20 mg tablet RxNorm: 575868 1 Tablet(s) PO daily 201711/01/2017 Inactive take 2 postassium pills daily while on the lasix Keflex 500 mg capsule RxNorm: 621289 1 Capsule(s) PO TID 201610/16/2017 Inactive Keflex 500 mg capsule RxNorm: 476506 1 Capsule(s) PO TID 201610/26/2017 Inactive Keflex 500 mg capsule RxNorm: 026714 1 Capsule(s) PO TID 201610/16/2017 Inactive Lasix 20 mg tablet RxNorm: 530415 1 Tablet(s) PO daily 201610/19/2017 Inactive take 2 postassium pills daily while on the lasix potassium chloride ER 20 mEq tablet,extended release RxNorm: 536672 Tablet(s) TAKE ONE TABLET BY MOUTH DAILY 10/13/2017 02/09/2018 Active Lasix 20 mg tablet RxNorm: 520968 1 Tablet(s) PO daily 201610/14/2017 Inactive take 2 postassium pills daily while on the lasix triamterene 37.5 mg-hydrochlorothiazide 25 mg tablet RxNorm: 628271 TAKE ONE AND ONE-HALF (1 1/2) TABLETS BY MOUTH DAILY 08/04/2017 12/01/2017 Active omeprazole 20 mg capsule,delayed release RxNorm: 772696 TAKE ONE CAPSULE BY MOUTH DAILY 06/17/2017 12/13/2017 Active potassium chloride ER 20 mEq tablet,extended release RxNorm: 764027 TAKE ONE TABLET BY MOUTH DAILY 06/03/20172016 Inactive ProAir RespiClick 90 mcg/actuation breath activated RxNorm: 3105628 2 INH QID as needed 04/22/2017 06/20/2017 Inactive omeprazole 20 mg capsule,delayed release RxNorm: 451305 1 Capsule(s) PO daily 04/22/2017 06/16/2017 Inactive potassium chloride ER 20 mEq tablet,extended release RxNorm: 896078 1 Tablet(s) PO daily 04/04/2017 04/03/2017 Inactive potassium chloride ER 20 mEq tablet,extended release RxNorm: 554865 1 Tablet(s) PO daily 04/04/2017 06/02/2017 Inactive Breo Ellipta 200 mcg-25 mcg/dose powder for inhalation RxNorm: 8616061 1 Puff(s) INH daily 04/03/2017 07/31/2017 Inactive triamterene 37.5 mg-hydrochlorothiazide 25 mg tablet RxNorm: 664056 1 1/2 Tablet(s ) TAKE ONE TABLET BY MOUTH DAILY 04/03/2017 08/03/2017 Inactive amoxicillin 500 mg tablet RxNorm: 501042 1 Tablet(s) PO BID 04/03/2017 Inactive Diflucan 150 mg tablet RxNorm: 966528 1 Tablet(s) PO daily 04/201702/06/2017 Inactive Ventolin HFA 90 mcg/actuation aerosol inhaler RxNorm: 520645 1 Puff(s) INH Q4-6H as needed 01/30/2017 No Stop Date Active Kenalog 40 mg/mL suspension for injection RxNorm: 4465722 1 Milliliter(s) Inj 01/24/2017 01/24/2017 Inactive Zithromax Z-Bishop 250 mg tablet RxNorm: 068525 1 Tablet(s) PO UD 01/24/2017 01/28/2017 Inactive prednisone 20 mg tablet RxNorm: 973453 1 Tablet(s) PO BID 01/2401/28/2017 Inactive triamterene 37.5 mg-hydrochlorothiazide 25 mg tablet RxNorm: 413695 TAKE ONE TABLET BY MOUTH DAILY 01/06/20172016 Inactive Zithromax Z-Bishop 250 mg tablet RxNorm: 885605 1 Tablet(s) PO UD 12/31/2016 12/31/2016 Inactive z pack as directed Augmentin 500 mg-125 mg tablet RxNorm: 271254 1 Tablet(s) PO TID 12/31/2016 12/30/2016 Inactive DC zpack Augmentin 500 mg-125 mg tablet RxNorm: 184252 1 Tablet(s) PO TID 12/31/2016 01/06/2017 Inactive DC zpack Keflex 500 mg capsule RxNorm: 134280 1 Capsule(s) PO TID 201612/15/2016 Inactive Keflex 500 mg capsule RxNorm: 952974 1 Capsule(s) PO TID 201612/22/2016 Inactive triamterene 37.5 mg-hydrochlorothiazide 25 mg tablet RxNorm: 229351 TAKE ONE TABLET BY MOUTH DAILY 07/04/20162016 Inactive triamterene 37.5 mg-hydrochlorothiazide 25 mg tablet RxNorm: 731350 TAKE ONE TABLET BY MOUTH DAILY 01/01/20162015 Inactive amoxicillin 500 mg tablet RxNorm: 814376 1 Tablet(s) PO BID 10/201410/05/2015 Inactive Bactrim DS 800 mg-160 mg tablet RxNorm: 185291 1 Tablet(s) PO BID 05/04/2015 05/03/2015 Inactive fluconazole 150 mg tablet RxNorm: 639564 1 Tablet(s) PO daily 05/04/2015 05/03/2015 Inactive fluconazole 150 mg tablet RxNorm: 453110 1 Tablet(s) PO daily 05/04/2015 05/10/2015 Inactive Bactrim DS 800 mg-160 mg tablet RxNorm: 357161 1 Tablet(s) PO BID 05/04/2015 05/13/2015 Inactive triamterene 37.5 mg-hydrochlorothiazide 25 mg tablet RxNorm: 820831 1 Tablet(s) PO daily 03/30/2015 12/24/2015 Inactive Probiotic (S.boulardii) oral RxNorm: 908579 oral No Start Date Active melatonin 10 mg tablet RxNorm: 1577945 1 Tablet(s) PO QHS as needed No Start Date Active flaxseed oil RxNorm: 008976 miscellaneous No Start Date Active alprazolam 0.25 mg tablet RxNorm: 506647 1 Tablet(s) PO PRN No Start Date Active [employer] oral RxNorm: oral No Start Date Active Zithromax Z-Bishop 250 mg tablet RxNorm: 379392 1 Tablet(s) PO UD No Start Date 12/30/2016 Inactive z pack as directed Ventolin HFA 90 mcg/actuation aerosol inhaler RxNorm: 069379 1 Puff(s) INH Q4-6H as needed No Start Date 01/29/2017 Inactive triamterene 37.5 mg-hydrochlorothiazide 25 mg tablet RxNorm: 633924 1 Tablet(s) PO daily No Start Date 03/29/2015 Inactive Medication Administered Medication Codes Instructions Start Date Status Kenalog 40 mg/mL suspension for injection RxNorm: 6010160 1Milliliter 01/24/2017 No longer Active Immunizations Vaccine Codes Date Status Influenza CVX: 141 07/03/2017 completed Pneumococcal CVX: 33 07/03/2017 completed Zoster CVX: 121 12/26/2011 completed Assessments Condition Codes Effective Dates Localized edema ICD-10: R60.0 ICD-9: 782.3 10/13/2017 Mild intermittent asthma with (acute) exacerbation ICD-10: J45.21 ICD-9: 493.12 04/22/2017 Shortness of breath ICD-10: R06.02 ICD-9: 786.05 04/22/2017 Essential (primary) hypertension ICD-10: I10 ICD-9: 401.9 04/22/2017 Contact with and (suspected) exposure to mold (toxic) ICD-10 : Z77.120 ICD-9: V87.31 04/22/2017 Acute laryngopharyngitis ICD-10: J06.0 ICD-9: 465.0 03/25/2017 Other allergic rhinitis ICD-10: J30.89 ICD-9: 477.8 01/31/2017 Palpitations ICD-10: R00.2 ICD-9: 785.1 01/31/2017 Otalgia, bilateral ICD-10: H92.03 ICD-9: 388.70 01/31/2017 Gastro-esophageal reflux disease without esophagitis ICD-10 : K21.9 ICD-9: 530.81 01/31/2017 Candidal stomatitis ICD-10: B37.0 ICD-9: 112.0 01/31/2017 Acute bronchitis, unspecified ICD-10: J20.9 ICD-9: 466.0 01/24/2017 Cough ICD-10: R05 ICD-9: 786.2 01/24/2017 Mixed hyperlipidemia ICD-10: E78.2 ICD-9: 272.2 06/11/2016 Streptococcal pharyngitis ICD-10: J02.0 ICD-9: 034.0 09/26/2015 DYSURIA ICD-9: 788.1 05/04/2015 Neck fullness ICD-9: 784.2 04/17/2015 CHEST SWELLING/MASS/LUMP ICD-9: 786.6 Biceps tendonitis ICD-9: 726.12 2014 ESSENTIAL HYPERTENSION ICD-9: 401.9 03/30 EDEMA ICD-9: 782.3 03/30/2015 Elevated blood sugar ICD-9: 790.29 2014 Reason For Visit Reason For Visit Effective Dates Notes edema 10/13/2017 shortness of breath 04/22/2017 sore throat 03/25/2017 cough 01/31/2017 cough 01/29/2017 cough 01/24/2017 sore throat 12/10/2016 hypertension 06/11/2016 cough 09/26/2015 shoulder pain 04/17/2015 shoulder pain 03/30/2015 Results Observation Observation Code Item Item Code Result Date Metabolic Ord15 NA 138 mEq/L 05/01/2017 Metabolic Ord15 K 3.6 mEq/L 05/01/2017 Metabolic Ord15 CL 99 mEq/L 05/01/2017 Metabolic Ord15 CO2 30.0 mEq/L 05/01/2017 Metabolic Ord15 GLUCOSE 99 mg/dL 05/01/2017 Metabolic Ord15 BUN 12 mg/dL 05/01/2017 Metabolic Ord15 Creat 0.8 mg/dL 05/01/2017 Metabolic Ord15 B/C Ratio 16.0 Ratio 05/01/2017 Metabolic Ord15 eGFR 84 ml/min/1.73m2 05/01/2017 Metabolic Ord15 Osmo 275 mOsmo 05/01/2017 Metabolic Ord15 ANION GAP 13 05/01/2017 Metabolic Ord15 CALCIUM 9.5 mg/dL 05/01/2017 Metabolic Ord15 NA 139 mEq/L 03/27/2017 Metabolic Ord15 K 3.3 mEq/L 03/27/2017 Metabolic Ord15 CL 99 mEq/L 03/27/2017 Metabolic Ord15 CO2 31.0 mEq/L 03/27/2017 Metabolic Ord15 GLUCOSE 182 mg/dL 03/27/2017 Metabolic Ord15 BUN 15 mg/dL 03/27/2017 Metabolic Ord15 Creat 0.8 mg/dL 03/27/2017 Metabolic Ord15 B/C Ratio 20.0 Ratio 03/27/2017 Metabolic Ord15 eGFR 84 ml/min/1.73m2 03/27/2017 Metabolic Ord15 Osmo 283 mOsmo 03/27/2017 Metabolic Ord15 ANION GAP 12 03/27/2017 Metabolic Ord15 CALCIUM 8.9 mg/dL 03/27/2017 C RAP A SC [id number] Strep A Negative 03/25/2017 Cbc With Differential Ord2 WBC 8.22 K/ul 02/10/2017 Cbc With Differential Ord2 RBC 4.95 M/ul 02/10/2017 Cbc With Differential Ord2 HGB 14.9 g/dl 02/10/2017 Cbc With Differential Ord2 HCT 43.2 % 02/10/2017 Cbc With Differential Ord2 Neut% 53.1 % 02/10/2017 Cbc With Differential Ord2 Lymph% 36.6 % 02/10/2017 Cbc With Differential Ord2 MCV 87.3 fl 02/10/2017 Cbc With Differential Ord2 MCH 30.1 pg 02/10/2017 Cbc With Differential Ord2 [place]% 7.5 % 02/10/2017 Cbc With Differential Ord2 Eos% 2.1 % 02/10/2017 Cbc With Differential Ord2 MCHC 34.5 pg 02/10/2017 Cbc With Differential Ord2 Baso% 0.7 % 02/10/2017 Cbc With Differential Ord2 PLT 295 K/ul 02/10/2017 Cbc With Differential Ord2 RDW 13.3 % 02/10/2017 Cbc With Differential Ord2 Neut ABS# 4.36 K/ul 02/10/2017 Cbc With Differential Ord2 Lymph ABS# 3.01 K/ul 02/10/2017 Cbc With Differential Ord2 [place] ABS# 0.6 K/ul 02/10/2017 Cbc With Differential Ord2 Eos ABS# 0.2 K/ul 02/10/2017 Cbc With Differential Ord2 Baso ABS# 0.1 K/ul 02/10/2017 C RAP A SC [id number] Strep A Negative 12/10/2016 %Hba1C Ofv079 % HbA1c 62105-9 6.3 % 06/10/2016 %Hba1C Awq631 Gluc Ave 134 mg/dL 06/10/2016 Tsh Ord6 hTSH II 1.48 uIU/mL 06/10/2016 Cbc With Differential Ord2 WBC 6.77 K/ul 06/10/2016 Cbc With Differential Ord2 RBC 5.15 M/ul 06/10/2016 Cbc With Differential Ord2 HGB 15.4 g/dl 06/10/2016 Cbc With Differential Ord2 HCT 44.4 % 06/10/2016 Cbc With Differential Ord2 Neut% 46.9 % 06/10/2016 Cbc With Differential Ord2 MCV 86.2 fl 06/10/2016 Cbc With Differential Ord2 Lymph% 42.1 % 06/10/2016 Cbc With Differential Ord2 MCH 29.9 pg 06/10/2016 Cbc With Differential Ord2 [place]% 7.1 % 06/10/2016 Cbc With Differential Ord2 Eos% 3.0 % 06/10/2016 Cbc With Differential Ord2 MCHC 34.7 pg 06/10/2016 Cbc With Differential Ord2 Baso% 0.9 % 06/10/2016 Cbc With Differential Ord2 PLT 323 K/ul 06/10/2016 Cbc With Differential Ord2 Neut ABS# 3.18 K/ul 06/10/2016 Cbc With Differential Ord2 RDW 13.5 % 06/10/2016 Cbc With Differential Ord2 Lymph ABS# 2.85 K/ul 06/10/2016 Cbc With Differential Ord2 [place] ABS# 0.5 K/ul 06/10/2016 Cbc With Differential Ord2 Eos ABS# 0.2 K/ul 06/10/2016 Cbc With Differential Ord2 Baso ABS# 0.1 K/ul 06/10/2016 Comp Metabolic Cug111 NA 141 mEq/L 06/10/2016 Comp Metabolic Csc207 K 3.7 mEq/L 06/10/2016 Comp Metabolic Gym649 CL 100 mEq/L 06/10/2016 Comp Metabolic Cji414 CO2 33.0 mEq/L 06/10/2016 Comp Metabolic Uzg993 ANION GAP 12 06/10/2016 Comp Metabolic Bmx022 GLUCOSE 128 mg/dL 06/10/2016 Comp Metabolic Eny465 Creat 0.8 mg/dL 06/10/2016 Comp Metabolic Frs632 eGFR 76 ml/min/1.73m2 06/10/2016 Comp Metabolic Tuo396 BUN 14 mg/dL 06/10/2016 Comp Metabolic Wpz925 B/C Ratio 17.1 Ratio 06/10/2016 Comp Metabolic Fri767 CALCIUM 9.5 mg/dL 06/10/2016 Comp Metabolic Kjr783 ALK PHOS 109 U/L 06/10/2016 Comp Metabolic Myb527 AST(SGOT) 16 U/L 06/10/2016 Comp Metabolic Xof859 ALT(SGPT) 20 U/L 06/10/2016 Comp Metabolic Efc789 BILI T 0.5 mg/dL 06/10/2016 Comp Metabolic Mad811 ALBUMIN 4.1 g/dL 06/10/2016 Comp Metabolic Nga107 TPRO 6.8 g/dL 06/10/2016 Comp Metabolic Lzc788 GLOB 2.7 g/dL 06/10/2016 Comp Metabolic Oso837 A/G Ratio 1.5 Ratio 06/10/2016 Comp Metabolic Bdq678 Osmo 283 mOsmo 06/10/2016 Lipid Ord30 CHOL 260 mg/dL 06/10/2016 Lipid Ord30 HDL 57.0 mg/dl 06/10/2016 Lipid Ord30 TRIG 205 mg/dL 06/10/2016 Lipid Ord30 LDL 162 mg/dL 06/10/2016 Lipid Ord30 C/HDL 4.6 Ratio 06/10/2016 Review of Systems System Result Effective Dates Constitutional No recent illness 2016 Constitutional No chills 10/13/2017 Constitutional No diaphoresis 10/13/2017 Constitutional No fever 10/13/2017 Eyes No eye erythema 10/13/2017 Ears/Nose/Throat/Neck No nasal discharge 10/13/2017 Ears/Nose/Throat/Neck No nasal allergies 10/13/2017 Cardiovascular No chest pain/pressure Cardiovascular No dyspnea 10/13/2017 Cardiovascular edema 10/13/2017 Cardiovascular No near-syncope/dizziness 10/13/2017 Cardiovascular No palpitations 2016 Respiratory No cough 10/13/2017 Respiratory No chest congestion 2016 Gastrointestinal No abdominal pain 2016 Dermatologic No rash 10/13/2017 Neurologic No alteration of consciousness 10/13/2017 Neurologic No mental status change 2016 Constitutional No chills 04/22/2017 Constitutional No diaphoresis 04/22/2017 Constitutional fatigue 04/22/2017 Eyes No eye discharge 04/22/2017 Eyes No eye erythema 04/22/2017 Cardiovascular No chest pain/pressure Respiratory cough 04/22/2017 Respiratory dyspnea 04/22/2017 Gastrointestinal No abdominal pain 2016 Gastrointestinal No constipation 2016 Gastrointestinal No diarrhea 04/22/2017 Gastrointestinal gastroesophageal reflux 04/22/2017 Dermatologic No rash 04/22/2017 Neurologic No alteration of consciousness 04/22/2017 Neurologic No mental status change 2016 Ears/Nose/Throat/Neck No dizziness 2016 Cardiovascular dyspnea 04/22/2017 Cardiovascular No edema 04/22/2017 Cardiovascular exercise intolerance 04/22 Cardiovascular fatigue 04/22/2017 Respiratory No productive sputum 2016 Psychiatric No anxiety 04/22/2017 Psychiatric No depression 04/22/2017 Constitutional recent illness 03/25/2017 Constitutional No anorexia 03/25/2017 Constitutional No night sweats 2016 Constitutional No chills 03/25/2017 Constitutional No diaphoresis 03/25/2017 Constitutional fatigue 03/25/2017 Constitutional No fever 03/25/2017 Constitutional No insomnia 03/25/2017 Constitutional No malaise 03/25/2017 Constitutional No weight loss 03/25/2017 Constitutional No weight gain 03/25/2017 Eyes No eye erythema 03/25/2017 Eyes No eye discharge 03/25/2017 Ears/Nose/Throat/Neck No dizziness 2016 Ears/Nose/Throat/Neck headache 2016 Ears/Nose/Throat/Neck nasal discharge Ears/Nose/Throat/Neck otalgia 03/25/2017 Ears/Nose/Throat/Neck sinus congestion Ears/Nose/Throat/Neck sore throat 2016 Cardiovascular No chest pain/pressure Cardiovascular dyspnea 03/25/2017 Respiratory No productive sputum 2016 Respiratory No chest congestion 2016 Respiratory cough 03/25/2017 Gastrointestinal No abdominal pain 2016 Genitourinary/Nephrology No flank pain Genitourinary/Nephrology No dysuria 03/25 Musculoskeletal No joint complaint 2016 Dermatologic No rash 03/25/2017 Neurologic No alteration of consciousness 03/25/2017 Constitutional recent illness 01/31/2017 Constitutional No chills 01/31/2017 Constitutional No diaphoresis 01/31/2017 Constitutional fatigue 01/31/2017 Eyes No eye discharge 01/31/2017 Eyes No eye erythema 01/31/2017 Ears/Nose/Throat/Neck nasal allergies 04/2017 Ears/Nose/Throat/Neck nasal discharge 04/2017 Cardiovascular No chest pain/pressure 04/2017 Respiratory cough 01/31/2017 Respiratory dyspnea 01/31/2017 Gastrointestinal No abdominal pain 2016 Gastrointestinal No constipation 2016 Gastrointestinal No diarrhea 01/31/2017 Dermatologic No rash 01/31/2017 Ears/Nose/Throat/Neck otalgia 01/31/2017 Ears/Nose/Throat/Neck sore throat 2016 Respiratory productive sputum 01/31/2017 Neurologic No alteration of consciousness 01/31/2017 Neurologic No mental status change 2016 Gastrointestinal gastroesophageal reflux 01/31/2017 Constitutional recent illness 01/29/2017 Constitutional No chills 01/29/2017 Constitutional fatigue 01/29/2017 Eyes No eye discharge 01/29/2017 Eyes No eye erythema 01/29/2017 Ears/Nose/Throat/Neck nasal allergies 02/2017 Ears/Nose/Throat/Neck nasal discharge 02/2017 Cardiovascular No chest pain/pressure 02/2017 Respiratory productive sputum 01/29/2017 Respiratory cough 01/29/2017 Respiratory dyspnea 01/29/2017 Gastrointestinal No abdominal pain 2016 Neurologic No alteration of consciousness 01/29/2017 Neurologic No mental status change 2016 Constitutional recent illness 01/24/2017 Constitutional No anorexia 01/24/2017 Constitutional No night sweats 2016 Constitutional No chills 01/24/2017 Constitutional No diaphoresis 01/24/2017 Constitutional fatigue 01/24/2017 Constitutional No insomnia 01/24/2017 Constitutional No fever 01/24/2017 Constitutional No malaise 01/24/2017 Constitutional No weight loss 01/24/2017 Constitutional No weight gain 01/24/2017 Eyes No eye erythema 01/24/2017 Eyes No eye discharge 01/24/2017 Ears/Nose/Throat/Neck No dizziness 2016 Ears/Nose/Throat/Neck No headache 2016 Ears/Nose/Throat/Neck nasal allergies Ears/Nose/Throat/Neck nasal discharge Ears/Nose/Throat/Neck sinus congestion Cardiovascular No chest pain/pressure Cardiovascular No claudication 2016 Cardiovascular No dyspnea 01/24/2017 Cardiovascular No edema 01/24/2017 Respiratory productive sputum 01/24/2017 Respiratory cough 01/24/2017 Gastrointestinal No abdominal pain 2016 Gastrointestinal No constipation 2016 Gastrointestinal No diarrhea 01/24/2017 Genitourinary/Nephrology No dysuria 01/24 Musculoskeletal No joint complaint 2016 Dermatologic No rash 01/24/2017 Respiratory dyspnea 01/24/2017 Constitutional recent illness 12/10/2016 Constitutional No anorexia 12/10/2016 Constitutional No night sweats 2016 Constitutional No chills 12/10/2016 Constitutional No diaphoresis 12/10/2016 Constitutional No fatigue 12/10/2016 Constitutional No fever 12/10/2016 Constitutional No insomnia 12/10/2016 Constitutional No malaise 12/10/2016 Constitutional No weight loss 12/10/2016 Constitutional No weight gain 12/10/2016 Eyes No eye discharge 12/10/2016 Eyes No eye erythema 12/10/2016 Ears/Nose/Throat/Neck No dizziness 2016 Ears/Nose/Throat/Neck No headache 2016 Ears/Nose/Throat/Neck nasal discharge Ears/Nose/Throat/Neck nasal allergies Ears/Nose/Throat/Neck No otalgia 2016 Ears/Nose/Throat/Neck No sinus congestion 12/10/2016 Ears/Nose/Throat/Neck sore throat 2016 Cardiovascular No chest pain/pressure Cardiovascular No dyspnea 12/10/2016 Respiratory No cough 12/10/2016 Gastrointestinal No abdominal pain 2016 Gastrointestinal No constipation 2016 Gastrointestinal No diarrhea 12/10/2016 Genitourinary/Nephrology No dysuria 12/10 Musculoskeletal No joint complaint 2016 Dermatologic No rash 12/10/2016 Constitutional No recent illness 2015 Constitutional No anorexia 06/11/2016 Constitutional No night sweats 2015 Constitutional No chills 06/11/2016 Constitutional No diaphoresis 06/11/2016 Constitutional fatigue 06/11/2016 Constitutional No fever 06/11/2016 Constitutional No insomnia 06/11/2016 Constitutional No malaise 06/11/2016 Constitutional No weight loss 06/11/2016 Constitutional No weight gain 06/11/2016 Eyes No eye discharge 06/11/2016 Eyes No eye erythema 06/11/2016 Ears/Nose/Throat/Neck No dizziness 2015 Ears/Nose/Throat/Neck No headache 2015 Cardiovascular No chest pain/pressure Cardiovascular No dyspnea 06/11/2016 Cardiovascular edema 06/11/2016 Respiratory No cough 06/11/2016 Gastrointestinal No abdominal pain 2015 Gastrointestinal constipation 06/11/2016 Gastrointestinal No diarrhea 06/11/2016 Gastrointestinal No nausea 06/11/2016 Genitourinary/Nephrology No dysuria 06/11 Musculoskeletal shoulder pain 06/11/2016 Dermatologic No rash 06/11/2016 Neurologic No alteration of consciousness 06/11/2016 Psychiatric anxiety 06/11/2016 Psychiatric No depression 06/11/2016 Endocrine No dry or coarse skin 2015 Musculoskeletal back pain 06/11/2016 Musculoskeletal joint complaint 2015 Constitutional recent illness 09/26/2015 Constitutional No anorexia 09/26/2015 Constitutional No night sweats 2014 Constitutional No chills 09/26/2015 Constitutional No diaphoresis 09/26/2015 Constitutional No fatigue 09/26/2015 Constitutional No fever 09/26/2015 Constitutional No insomnia 09/26/2015 Constitutional No malaise 09/26/2015 Constitutional No weight loss 09/26/2015 Constitutional No weight gain 09/26/2015 Eyes No eye discharge 09/26/2015 Eyes No eye erythema 09/26/2015 Ears/Nose/Throat/Neck No dizziness 2014 Ears/Nose/Throat/Neck headache 2014 Ears/Nose/Throat/Neck No nasal allergies 09/26/2015 Ears/Nose/Throat/Neck No nasal discharge 09/26/2015 Ears/Nose/Throat/Neck otalgia 09/26/2015 Ears/Nose/Throat/Neck sinus congestion Ears/Nose/Throat/Neck sore throat 2014 Cardiovascular No chest pain/pressure 10/2014 Cardiovascular No dyspnea 09/26/2015 Cardiovascular No edema 09/26/2015 Respiratory productive sputum 09/26/2015 Respiratory chest congestion 09/26/2015 Respiratory cough 09/26/2015 Gastrointestinal No abdominal pain 2014 Gastrointestinal No constipation 2014 Gastrointestinal No diarrhea 09/26/2015 Genitourinary/Nephrology No dysuria 09/26 Musculoskeletal No joint complaint 2014 Dermatologic No rash 09/26/2015 Neurologic No alteration of consciousness 09/26/2015 Constitutional No recent illness 2014 Constitutional No anorexia 04/17/2015 Constitutional No night sweats 2014 Constitutional No chills 04/17/2015 Constitutional No diaphoresis 04/17/2015 Constitutional No fatigue 04/17/2015 Constitutional No fever 04/17/2015 Constitutional No insomnia 04/17/2015 Constitutional No malaise 04/17/2015 Constitutional No weight loss 04/17/2015 Constitutional No weight gain 04/17/2015 Eyes No eye discharge 04/17/2015 Eyes No eye erythema 04/17/2015 Ears/Nose/Throat/Neck No dizziness 2014 Ears/Nose/Throat/Neck No headache 2014 Cardiovascular No chest pain/pressure Cardiovascular No dyspnea 04/17/2015 Cardiovascular edema 04/17/2015 Respiratory No cough 04/17/2015 Gastrointestinal No abdominal pain 2014 Gastrointestinal No diarrhea 04/17/2015 Gastrointestinal No nausea 04/17/2015 Genitourinary/Nephrology No dysuria 04/17 Musculoskeletal shoulder pain 04/17/2015 Dermatologic No rash 04/17/2015 Neurologic No alteration of consciousness 04/17/2015 Psychiatric No anxiety 04/17/2015 Psychiatric No depression 04/17/2015 Endocrine No dry or coarse skin 2014 Constitutional No recent illness 2014 Constitutional No anorexia 03/30/2015 Constitutional No night sweats 2014 Constitutional No chills 03/30/2015 Constitutional No diaphoresis 03/30/2015 Constitutional No fatigue 03/30/2015 Constitutional No fever 03/30/2015 Constitutional No insomnia 03/30/2015 Constitutional No malaise 03/30/2015 Constitutional No weight loss 03/30/2015 Constitutional No weight gain 03/30/2015 Eyes No eye discharge 03/30/2015 Eyes No eye erythema 03/30/2015 Ears/Nose/Throat/Neck No dizziness 2014 Ears/Nose/Throat/Neck No headache 2014 Cardiovascular No chest pain/pressure 01/2015 Cardiovascular No dyspnea 03/30/2015 Cardiovascular edema 03/30/2015 Respiratory No cough 03/30/2015 Gastrointestinal No abdominal pain 2014 Gastrointestinal constipation 03/30/2015 Gastrointestinal No diarrhea 03/30/2015 Gastrointestinal No nausea 03/30/2015 Genitourinary/Nephrology No dysuria 03/30 Musculoskeletal shoulder pain 03/30/2015 Dermatologic No rash 03/30/2015 Neurologic No alteration of consciousness 03/30/2015 Endocrine No dry or coarse skin 2014 Psychiatric No anxiety 03/30/2015 Psychiatric No depression 03/30/2015 Physical Exam Exam Name System Name Item Name Status Result Effective Dates Notes Full Exam - General 1994 Constitutional general appearance Overall: well developed 10/13/2017 None Full Exam - General 1994 Constitutional general appearance Overall: in no acute distress 10/13/2017 None Full Exam - General 1994 Constitutional general appearance Overall: well nourished 10/13/2017 None Full Exam - General 1994 Eyes conjunctiva /eyelids Overall: conjunctiva clear 10/13/2017 None Full Exam - General 1994 Eyes conjunctiva /eyelids Overall: cornea clear 10/13/2017 None Full Exam - General 1994 Eyes conjunctiva /eyelids Overall: eyelids normal 10/13/2017 None Full Exam - General 1994 Eyes pupils and irises Overall: pupils equal, round, reactive to light and accomodation 10/13/2017 None Full Exam - General 1994 Ears/Nose/Throat lips/teeth/gingiva Overall: benign lips 10/13/2017 None Full Exam - General 1994 Ears/Nose/Throat oral cavity/pharynx/larynx Overall: oral mucosa clear 10/13/2017 None Full Exam - General 1994 Respiratory auscultation Overall: breath sounds clear bilaterally 10/13/2017 None Full Exam - General 1994 Respiratory respiratory effort/rhythm Overall: no retractions 10/13/2017 None Full Exam - General 1994 Respiratory respiratory effort/rhythm Overall: normal rate 10/13/2017 None Full Exam - General 1994 Cardiovascular auscultation of heart Overall: regular rate 10/13/2017 None Full Exam - General 1994 Cardiovascular auscultation of heart Overall: normal heart sounds 10/13/2017 None Full Exam - General 1994 Cardiovascular auscultation of heart Overall: no murmurs 10/13/2017 None Full Exam - General 1994 Cardiovascular extremities Edema present: pitting 10/13/2017 None Full Exam - General 1994 Cardiovascular extremities Edema present: severity 1+ - 4 +: 1-2+ 10/13/2017 None Full Exam - General 1994 Cardiovascular extremities Edema present: to leg 10/13/2017 None Full Exam - General 1994 Cardiovascular extremities Edema present: bilateral 10/13/2017 None Full Exam - General 1994 Musculoskeletal head and neck Overall: head atraumatic 10/13/2017 None Full Exam - General 1994 Neurologic cranial nerves Overall: crainial nerves 2 - 12 grossly intact 10/13/2017 None Full Exam - General 1994 Psychiatric orientation/consciousness Overall: oriented to person, place and time 10/13/2017 None Full Exam - General 1994 Psychiatric mood and affect Overall: normal mood and affect 10/13/2017 None Full Exam - General 1994 Psychiatric appearance Overall: well-groomed, good eye contact 10/13/2017 None Full Exam - General 1994 Constitutional general appearance Overall: well nourished 04/22/2017 None Full Exam - General 1994 Constitutional general appearance Overall: well developed 04/22/2017 None Full Exam - General 1994 Constitutional general appearance Overall: in no acute distress 04/22/2017 None Full Exam - General 1994 Eyes pupils and irises Overall: pupils equal, round, reactive to light and accomodation 04/22/2017 None Full Exam - General 1994 Ears/Nose/Throat otoscopic exam Overall: tympanic membranes clear 04/22/2017 None Full Exam - General 1994 Ears/Nose/Throat otoscopic exam Overall: external auditory canals clear 04/22/2017 None Full Exam - General 1994 Ears/Nose/Throat oral cavity/pharynx/larynx Overall: oropharyngeal mucosa clear 04/22/2017 None Full Exam - General 1994 Ears/Nose/Throat oral cavity/pharynx/larynx Overall: no masses 04/22/2017 None Full Exam - General 1994 Ears/Nose/Throat oral cavity/pharynx/larynx Overall: oral mucosa clear 04/22/2017 None Full Exam - General 1994 Respiratory auscultation Overall: breath sounds clear bilaterally 04/22/2017 None Full Exam - General 1994 Respiratory respiratory effort/rhythm Overall: normal rate 04/22/2017 None Full Exam - General 1994 Respiratory respiratory effort/rhythm Overall: no retractions 04/22/2017 None Full Exam - General 1994 Cardiovascular auscultation of heart Overall: regular rate 04/22/2017 None Full Exam - General 1994 Cardiovascular auscultation of heart Overall: normal heart sounds 04/22/2017 None Full Exam - General 1994 Cardiovascular auscultation of heart Overall: no murmurs 04/22/2017 None Full Exam - General 1994 Cardiovascular extremities Overall: no clubbing 04/22/2017 None Full Exam - General 1994 Abdomen abdominal exam Overall: no tenderness 04/22/2017 None Full Exam - General 1994 Abdomen abdominal exam Overall: normal bowel sounds 04/22/2017 None Full Exam - General 1994 Abdomen liver and spleen exam Overall: no hepatosplenomegaly 04/22/2017 None Full Exam - General 1994 Abdomen liver and spleen exam Overall: no stigmata of chronic liver disease 04/22/2017 None Full Exam - General 1994 Lymphatic neck nodes Overall: anterior cervical chain benign 04/22/2017 None Full Exam - General 1994 Lymphatic neck nodes Overall: posterior cervical chain benign 04/22/2017 None Full Exam - General 1994 Musculoskeletal head and neck Overall: cervical spine benign 04/22/2017 None Full Exam - General 1994 Musculoskeletal head and neck Overall: head atraumatic 04/22/2017 None Full Exam - General 1994 Musculoskeletal gait and station Overall: normal station 04/22/2017 None Full Exam - General 1994 Musculoskeletal gait and station Overall: normal gait 04/22/2017 None Full Exam - General 1994 Integument inspection of skin Overall: no rash, lesions 04/22/2017 None Full Exam - General 1994 Neurologic gait Overall: no ataxia, no unsteadiness 04/22/2017 None Full Exam - General 1994 Psychiatric orientation/consciousness Overall: oriented to person, place and time 04/22/2017 None Full Exam - General 1994 Psychiatric behavior/psychomotor activity Overall: no tics, normal psychomotor activity 04/22/2017 None Full Exam - General 1994 Psychiatric mood and affect Mood: happy 04/22/2017 None Full Exam - General 1994 Psychiatric mood and affect Overall: normal mood and affect 04/22/2017 None Full Exam - General 1994 Neurologic cranial nerves Overall: crainial nerves 2 - 12 grossly intact 04/22/2017 None Full Exam - ENT Constitutional general appearance Overall: well nourished 03/25/2017 None Full Exam - ENT Constitutional general appearance Overall: well developed 03/25/2017 None Full Exam - ENT Constitutional general appearance Overall: in no acute distress 03/25/2017 None Full Exam - ENT Ears/Nose/Throat otoscopic exam Overall: external auditory canals normal 03/25/2017 None Full Exam - ENT Ears/Nose/Throat otoscopic exam Overall: tympanic membranes normal 03/25/2017 None Full Exam - ENT Ears/Nose/Throat oropharynx Posterior Pharynx: erythema 03/25/2017 None Full Exam - ENT Face and Head palpation Overall: no sinus tenderness 03/25/2017 None Full Exam - ENT Respiratory inspection Overall: no retractions 03/25/2017 None Full Exam - ENT Respiratory inspection Overall: normal rate None Full Exam - ENT Respiratory auscultation Overall: breath sounds clear bilaterally 03/25/2017 None Full Exam - ENT Cardiovascular auscultation of heart Overall: regular rate 03/25/2017 None Full Exam - ENT Cardiovascular auscultation of heart Overall: normal heart sounds 03/25/2017 None Full Exam - ENT Cardiovascular auscultation of heart Overall: no murmurs 03/25/2017 None Full Exam - ENT Cardiovascular examination of vasculature Overall: no clubbing 03/25/2017 None Full Exam - ENT Lymphatic palpation of lymph nodes Overall: shotty lymphadenopathy 03/25/2017 None Full Exam - ENT Integument inspection of skin Overall: no rash, lesions 03/25/2017 None Full Exam - ENT Neurologic orientation Overall: oriented to person, place and time 03/25/2017 None Full Exam - ENT Constitutional general appearance Overall: well nourished 01/31/2017 None Full Exam - ENT Constitutional general appearance Overall: well developed 01/31/2017 None Full Exam - ENT Constitutional general appearance Overall: in no acute distress 01/31/2017 None Full Exam - ENT Ears/Nose/Throat otoscopic exam Overall: external auditory canals normal 01/31/2017 None Full Exam - ENT Ears/Nose/Throat oropharynx Overall: oral mucosa clear 01/31/2017 None Full Exam - ENT Respiratory inspection Overall: no retractions 01/31/2017 None Full Exam - ENT Respiratory inspection Overall: normal rate 04/2017 None Full Exam - ENT Respiratory auscultation Overall: breath sounds clear bilaterally 01/31/2017 None Full Exam - ENT Cardiovascular auscultation of heart Overall: regular rate 01/31/2017 None Full Exam - ENT Cardiovascular auscultation of heart Overall: normal heart sounds 01/31/2017 None Full Exam - ENT Integument inspection of skin Overall: no rash, lesions 01/31/2017 None Full Exam - ENT Neurologic orientation Overall: oriented to person, place and time 01/31/2017 None Full Exam - ENT Ears/Nose/Throat otoscopic exam Right tympanic membrane: air-fluid level 01/31/2017 None Full Exam - ENT Ears/Nose/Throat otoscopic exam Left tympanic membrane: air -fluid level 01/31/2017 None Full Exam - ENT Ears/Nose/Throat oropharynx Oral mucosa: thrush 01/31/2017 None Full Exam - ENT Neurologic mood and affect Overall: normal mood 01/31/2017 None Full Exam - ENT Neurologic mood and affect Overall: normal affect 01/31/2017 None Full Exam - ENT Constitutional general appearance Overall: well nourished 01/29/2017 None Full Exam - ENT Constitutional general appearance Overall: well developed 01/29/2017 None Full Exam - ENT Constitutional general appearance Overall: in no acute distress 01/29/2017 None Full Exam - ENT Ears/Nose/Throat otoscopic exam Overall: external auditory canals normal 01/29/2017 None Full Exam - ENT Ears/Nose/Throat otoscopic exam Left tympanic membrane: air -fluid level 01/29/2017 None Full Exam - ENT Ears/Nose/Throat otoscopic exam Right tympanic membrane: air-fluid level 01/29/2017 None Full Exam - ENT Ears/Nose/Throat oropharynx Overall: oral mucosa clear 01/29/2017 None Full Exam - ENT Respiratory inspection Overall: no retractions 01/29/2017 None Full Exam - ENT Respiratory inspection Overall: normal rate 02/2017 None Full Exam - ENT Respiratory auscultation Overall: breath sounds clear bilaterally 01/29/2017 None Full Exam - ENT Cardiovascular auscultation of heart Overall: regular rate 01/29/2017 None Full Exam - ENT Cardiovascular auscultation of heart Overall: normal heart sounds 01/29/2017 None Full Exam - ENT Neurologic mood and affect Overall: normal mood 01/29/2017 None Full Exam - ENT Neurologic mood and affect Overall: normal affect 01/29/2017 None Full Exam - ENT Neurologic orientation Overall: oriented to person, place and time 01/29/2017 None Full Exam - ENT Constitutional general appearance Overall: well nourished 01/24/2017 None Full Exam - ENT Constitutional general appearance Overall: well developed 01/24/2017 None Full Exam - ENT Constitutional general appearance Overall: in no acute distress 01/24/2017 None Full Exam - ENT Ears/Nose/Throat otoscopic exam Overall: external auditory canals normal 01/24/2017 None Full Exam - ENT Ears/Nose/Throat otoscopic exam Overall: tympanic membranes normal 01/24/2017 None Full Exam - ENT Face and Head palpation Overall: no sinus tenderness 01/24/2017 None Full Exam - ENT Respiratory inspection Overall: no retractions 01/24/2017 None Full Exam - ENT Respiratory inspection Overall: normal rate None Full Exam - ENT Respiratory auscultation Overall: breath sounds clear bilaterally 01/24/2017 None Full Exam - ENT Cardiovascular auscultation of heart Overall: regular rate 01/24/2017 None Full Exam - ENT Cardiovascular auscultation of heart Overall: normal heart sounds 01/24/2017 None Full Exam - ENT Cardiovascular auscultation of heart Overall: no murmurs 01/24/2017 None Full Exam - ENT Cardiovascular examination of vasculature Overall: no clubbing 01/24/2017 None Full Exam - ENT Lymphatic palpation of lymph nodes Overall: shotty lymphadenopathy 01/24/2017 None Full Exam - ENT Integument inspection of skin Overall: no rash, lesions 01/24/2017 None Full Exam - ENT Neurologic orientation Overall: oriented to person, place and time 01/24/2017 None Full Exam - ENT Ears/Nose/Throat oropharynx Overall: oral mucosa clear 01/24/2017 None Full Exam - ENT Constitutional general appearance Overall: well nourished 12/10/2016 None Full Exam - ENT Constitutional general appearance Overall: well developed 12/10/2016 None Full Exam - ENT Constitutional general appearance Overall: in no acute distress 12/10/2016 None Full Exam - ENT Ears/Nose/Throat otoscopic exam Overall: external auditory canals normal 12/10/2016 None Full Exam - ENT Ears/Nose/Throat otoscopic exam Overall: tympanic membranes normal 12/10/2016 None Full Exam - ENT Ears/Nose/Throat oropharynx Posterior Pharynx: erythema 12/10/2016 None Full Exam - ENT Face and Head palpation Overall: no sinus tenderness 12/10/2016 None Full Exam - ENT Respiratory inspection Overall: no retractions 12/10/2016 None Full Exam - ENT Respiratory inspection Overall: normal rate None Full Exam - ENT Respiratory auscultation Overall: breath sounds clear bilaterally 12/10/2016 None Full Exam - ENT Cardiovascular auscultation of heart Overall: regular rate 12/10/2016 None Full Exam - ENT Cardiovascular auscultation of heart Overall: normal heart sounds 12/10/2016 None Full Exam - ENT Cardiovascular auscultation of heart Overall: no murmurs 12/10/2016 None Full Exam - ENT Cardiovascular examination of vasculature Overall: no clubbing 12/10/2016 None Full Exam - ENT Lymphatic palpation of lymph nodes Overall: shotty lymphadenopathy 12/10/2016 None Full Exam - ENT Integument inspection of skin Overall: no rash, lesions 12/10/2016 None Full Exam - ENT Neurologic orientation Overall: oriented to person, place and time 12/10/2016 None Full Exam - General 1994 Constitutional general appearance Overall: well developed 06/11/2016 None Full Exam - General 1994 Constitutional general appearance Overall: in no acute distress 06/11/2016 None Full Exam - General 1994 Constitutional general appearance Overall: well nourished 06/11/2016 None Full Exam - General 1994 Eyes conjunctiva /eyelids Overall: conjunctiva clear 06/11/2016 None Full Exam - General 1994 Eyes pupils and irises Overall: pupils equal, round, reactive to light and accomodation 06/11/2016 None Full Exam - General 1994 Ears/Nose/Throat otoscopic exam Overall: external auditory canals clear 06/11/2016 None Full Exam - General 1994 Ears/Nose/Throat otoscopic exam Overall: tympanic membranes clear 06/11/2016 None Full Exam - General 1994 Ears/Nose/Throat oral cavity/pharynx/larynx Overall: oral mucosa clear 06/11/2016 None Full Exam - General 1994 Neck thyroid Size: a normal exam 06/11 None Full Exam - General 1994 Respiratory auscultation Overall: breath sounds clear bilaterally 06/11/2016 None Full Exam - General 1994 Respiratory respiratory effort/rhythm Overall: no retractions 06/11/2016 None Full Exam - General 1994 Respiratory respiratory effort/rhythm Overall: normal rate 06/11/2016 None Full Exam - General 1994 Cardiovascular extremities Overall: no clubbing 06/11/2016 None Full Exam - General 1994 Cardiovascular auscultation of heart Overall: regular rate 06/11/2016 None Full Exam - General 1994 Cardiovascular auscultation of heart Overall: normal heart sounds 06/11/2016 None Full Exam - General 1994 Abdomen abdominal exam Overall: no tenderness 06/11/2016 None Full Exam - General 1994 Abdomen abdominal exam Overall: normal bowel sounds 06/11/2016 None Full Exam - General 1994 Lymphatic neck nodes Overall: anterior cervical chain benign 06/11/2016 None Full Exam - General 1994 Lymphatic neck nodes Overall: posterior cervical chain benign 06/11/2016 None Full Exam - General 1994 Integument inspection of skin Overall: no rash, lesions 06/11/2016 None Full Exam - General 1994 Neurologic deep tendon reflexes Overall: deep tendon reflexes intact 06/11/2016 None Full Exam - General 1994 Neurologic cranial nerves Overall: crainial nerves 2 - 12 grossly intact 06/11/2016 None Full Exam - General 1994 Psychiatric orientation/consciousness Overall: oriented to person, place and time 06/11/2016 None Full Exam - ENT Constitutional general appearance Overall: well nourished 09/26/2015 None Full Exam - ENT Constitutional general appearance Overall: well developed 09/26/2015 None Full Exam - ENT Constitutional general appearance Overall: in no acute distress 09/26/2015 None Full Exam - ENT Neurologic orientation Overall: oriented to person, place and time 09/26/2015 None Full Exam - ENT Integument inspection of skin Overall: no rash, lesions 09/26/2015 None Full Exam - ENT Lymphatic palpation of lymph nodes Overall: shotty lymphadenopathy 09/26/2015 None Full Exam - ENT Cardiovascular auscultation of heart Overall: regular rate 09/26/2015 None Full Exam - ENT Cardiovascular auscultation of heart Overall: normal heart sounds 09/26/2015 None Full Exam - ENT Cardiovascular auscultation of heart Overall: no murmurs 09/26/2015 None Full Exam - ENT Cardiovascular examination of vasculature Overall: no clubbing 09/26/2015 None Full Exam - ENT Respiratory inspection Overall: no retractions 09/26/2015 None Full Exam - ENT Respiratory inspection Overall: normal rate 10/2014 None Full Exam - ENT Respiratory auscultation Overall: breath sounds clear bilaterally 09/26/2015 None Full Exam - ENT Face and Head palpation Overall: no sinus tenderness 09/26/2015 None Full Exam - ENT Ears/Nose/Throat otoscopic exam Overall: external auditory canals normal 09/26/2015 None Full Exam - ENT Ears/Nose/Throat otoscopic exam Overall: tympanic membranes normal 09/26/2015 None Full Exam - ENT Ears/Nose/Throat oropharynx Posterior Pharynx: erythema 09/26/2015 None Full Exam - General 1994 Constitutional general appearance Overall: well developed 04/17/2015 None Full Exam - General 1994 Constitutional general appearance Overall: in no acute distress 04/17/2015 None Full Exam - General 1994 Constitutional general appearance Overall: well nourished 04/17/2015 None Full Exam - General 1994 Eyes conjunctiva /eyelids Overall: conjunctiva clear 04/17/2015 None Full Exam - General 1994 Eyes pupils and irises Overall: pupils equal, round, reactive to light and accomodation 04/17/2015 None Full Exam - General 1994 Ears/Nose/Throat otoscopic exam Overall: external auditory canals clear 04/17/2015 None Full Exam - General 1994 Ears/Nose/Throat otoscopic exam Overall: tympanic membranes clear 04/17/2015 None Full Exam - General 1994 Ears/Nose/Throat oral cavity/pharynx/larynx Overall: oral mucosa clear 04/17/2015 None Full Exam - General 1994 Neck thyroid Size: a normal exam 04/17 None Full Exam - General 1994 Neck inspection of neck Swelling: left 04/17/2015 swelling noted to left upper chest wall and left side of neck Full Exam - General 1994 Respiratory auscultation Overall: breath sounds clear bilaterally 04/17/2015 None Full Exam - General 1994 Respiratory respiratory effort/rhythm Overall: no retractions 04/17/2015 None Full Exam - General 1994 Respiratory respiratory effort/rhythm Overall: normal rate 04/17/2015 None Full Exam - General 1994 Cardiovascular extremities Overall: no clubbing 04/17/2015 None Full Exam - General 1994 Cardiovascular extremities Edema present: pitting 04/17/2015 --Improved Full Exam - General 1994 Cardiovascular extremities Edema present: severity 1+ - 4 +: 1+ 04/17/2015 --Improved Full Exam - General 1994 Cardiovascular extremities Edema present: bilateral 04/17/2015 feet --Improved Full Exam - General 1994 Cardiovascular auscultation of heart Overall: regular rate 04/17/2015 None Full Exam - General 1994 Cardiovascular auscultation of heart Overall: normal heart sounds 04/17/2015 None Full Exam - General 1994 Abdomen abdominal exam Overall: no tenderness 04/17/2015 None Full Exam - General 1994 Abdomen abdominal exam Overall: normal bowel sounds 04/17/2015 None Full Exam - General 1994 Lymphatic neck nodes Overall: anterior cervical chain benign 04/17/2015 None Full Exam - General 1994 Lymphatic neck nodes Overall: posterior cervical chain benign 04/17/2015 None Full Exam - General 1994 Musculoskeletal upper extremity Inspection - shoulder: a normal exam 04/17/2015 None Full Exam - General 1994 Musculoskeletal upper extremity Palpation - shoulder: tenderness @ bicipital groove 04/17/2015 None Full Exam - General 1994 Musculoskeletal upper extremity ROM - shoulder: a normal exam 04/17/2015 None Full Exam - General 1994 Integument inspection of skin Overall: no rash, lesions 04/17/2015 None Full Exam - General 1994 Neurologic deep tendon reflexes Overall: deep tendon reflexes intact 04/17/2015 None Full Exam - General 1994 Neurologic cranial nerves Overall: crainial nerves 2 - 12 grossly intact 04/17/2015 None Full Exam - General 1994 Psychiatric orientation/consciousness Overall: oriented to person, place and time 04/17/2015 None Full Exam - General 1994 Constitutional general appearance Overall: well developed 03/30/2015 None Full Exam - General 1994 Constitutional general appearance Overall: in no acute distress 03/30/2015 None Full Exam - General 1994 Constitutional general appearance Overall: well nourished 03/30/2015 None Full Exam - General 1994 Psychiatric orientation/consciousness Overall: oriented to person, place and time 03/30/2015 None Full Exam - General 1994 Neurologic deep tendon reflexes Overall: deep tendon reflexes intact 03/30/2015 None Full Exam - General 1994 Neurologic cranial nerves Overall: crainial nerves 2 - 12 grossly intact 03/30/2015 None Full Exam - General 1994 Integument inspection of skin Overall: no rash, lesions 03/30/2015 None Full Exam - General 1994 Musculoskeletal upper extremity Inspection - shoulder: a normal exam 03/30/2015 None Full Exam - General 1994 Musculoskeletal upper extremity Palpation - shoulder: tenderness @ bicipital groove 03/30/2015 None Full Exam - General 1994 Musculoskeletal upper extremity ROM - shoulder: a normal exam 03/30/2015 None Full Exam - General 1994 Lymphatic neck nodes Overall: anterior cervical chain benign 03/30/2015 None Full Exam - General 1994 Lymphatic neck nodes Overall: posterior cervical chain benign 03/30/2015 None Full Exam - General 1994 Abdomen abdominal exam Overall: no tenderness 03/30/2015 None Full Exam - General 1994 Abdomen abdominal exam Overall: normal bowel sounds 03/30/2015 None Full Exam - General 1994 Cardiovascular auscultation of heart Overall: regular rate 03/30/2015 None Full Exam - General 1994 Cardiovascular auscultation of heart Overall: normal heart sounds 03/30/2015 None Full Exam - General 1994 Respiratory auscultation Overall: breath sounds clear bilaterally 03/30/2015 None Full Exam - General 1994 Respiratory respiratory effort/rhythm Overall: no retractions 03/30/2015 None Full Exam - General 1994 Respiratory respiratory effort/rhythm Overall: normal rate 03/30/2015 None Full Exam - General 1994 Neck inspection of neck Swelling: left 03/30/2015 swelling noted to left upper chest wall and left side of neck Full Exam - General 1994 Neck thyroid Size: a normal exam 03/30 None Full Exam - General 1994 Ears/Nose/Throat otoscopic exam Overall: external auditory canals clear 03/30/2015 None Full Exam - General 1994 Ears/Nose/Throat otoscopic exam Overall: tympanic membranes clear 03/30/2015 None Full Exam - General 1994 Ears/Nose/Throat oral cavity/pharynx/larynx Overall: oral mucosa clear 03/30/2015 None Full Exam - General 1994 Eyes conjunctiva /eyelids Overall: conjunctiva clear 03/30/2015 None Full Exam - General 1994 Eyes pupils and irises Overall: pupils equal, round, reactive to light and accomodation 03/30/2015 None Full Exam - General 1994 Cardiovascular extremities Overall: no clubbing 03/30/2015 None Full Exam - General 1994 Cardiovascular extremities Edema present: pitting 03/30/2015 None Full Exam - General 1994 Cardiovascular extremities Edema present: severity 1+ - 4 +: 1+ 03/30/2015 None Full Exam - General 1994 Cardiovascular extremities Edema present: bilateral 03/30/2015 feet Procedures Procedure Codes Date TRIAMCINOLONE ACET INJ NOS CPT-4: J3301 01/24/2017 C RAP A SC (STREP A ASSAY W/OPTIC) CPT-4: 06150 09/26/2015 URINALYSIS NONAUTO W/O SCOPE CPT-4: 22476 05/04/2015 Vital Signs Date Vital 10/13/2017 Blood Pressure 1: 140/78 Code : 8480-6 BMI: 34.2 Code : 42922-0 Heart Rate 1 : 92 bpm Height: 5'6" SpO2: 97% Weight: 212 lbs 04/22/2017 Blood Pressure 1: 138/88 Code : 8480-6 BMI: 34.2 Code : 92070-7 Heart Rate 1 : 104 bpm Height: 5'6" SpO2: 96% Weight: 212 lbs 03/25/2017 Blood Pressure 1: 138/86 Code : 8480-6 BMI: 34.1 Code : 60541-3 Heart Rate 1 : 99 bpm Height: 5'6" SpO2: 96% Weight: 211 lbs 01/31/2017 Blood Pressure 1: 132/80 Code : 8480-6 Heart Rate 1: 86 bpm Height: 5'6" SpO2: 99% Temperature: 36.9 (C) / 98.5 (F) Weight: 01/29/2017 Blood Pressure 1: 140/92 Code : 8480-6 BMI: 34.2 Code : 11693-1 Heart Rate 1 : 81 bpm Height: 5'6" SpO2: 98% Weight: 212 lbs 01/24/2017 Blood Pressure 1: 144/96 Code : 8480-6 BMI: 34.1 Code : 41693-5 Heart Rate 1 : 91 bpm Height: 5'6" SpO2: 98% Temperature: 36.7 (C) / 98.1 (F) Weight: 211 lbs 12/10/2016 Blood Pressure 1: 108/62 Code : 8480-6 BMI: 34.2 Code : 11787-3 Heart Rate 1 : 80 bpm Height: 5'6" SpO2: 97% Weight: 212 lbs 06/11/2016 Blood Pressure 1: 130/70 Code : 8480-6 BMI: 33.2 Code : 53690-8 Heart Rate 1 : 76 bpm Height: 5'6" SpO2: 96% Weight: 206 lbs 09/26/2015 Blood Pressure 1: 138/78 Code : 8480-6 BMI: 33.2 Code : 82672-9 Heart Rate 1 : 102 bpm Height: 5'6" Weight: 206 lbs 04/17/2015 Blood Pressure 1: 126/88 Code : 8480-6 BMI: 33.7 Code : 69174-7 Height: 5'6" Weight: 209 lbs 03/30/2015 Blood Pressure 1: 126/68 Code : 8480-6 BMI: 34.2 Code : 53133-2 Heart Rate 1 : 80 bpm Height: 5'6" SpO2: 96% Weight: 212 lbs Functional Status No Functional Status data History of Present Illness Symptom Name Status Result Effective Date Notes edema Onset and Resolution gradual in onset 10/13/2017 None edema Onset and Resolution ongoing 10/13/2017 None edema Limitation on Activities does not limit activities 10/13/2017 None edema Pertinent Findings Denies dyspnea 10/13/2017 None edema Pertinent Findings Denies limb redness 10/13/2017 None edema Pertinent Findings Denies palpitations 10/13/2017 None edema Location on the left ankle 10/13/2017 None edema Location on the right ankle 10/13/2017 None shortness of breath Quality acute 04/22/2017 None shortness of breath Quality breathlessness 04/22/2017 None shortness of breath Quality chest tightness 04/22/2017 None shortness of breath Quality intermittent 04/22/2017 None shortness of breath Alleviating Factors rest 04/22/2017 None shortness of breath Exacerbating Factors exertion 04/22/2017 None shortness of breath Pertinent Findings cough 04/22/2017 None shortness of breath Quality acute 03/25/2017 None shortness of breath Quality breathlessness 03/25/2017 None shortness of breath Quality chest tightness 03/25/2017 None shortness of breath Quality intermittent 03/25/2017 None shortness of breath Alleviating Factors rest 03/25/2017 None shortness of breath Exacerbating Factors exertion 03/25/2017 None shortness of breath Pertinent Findings cough 03/25/2017 None sore throat Quality acute 03/25/2017 None sore throat Onset and Resolution sudden in onset 03/25/2017 None sore throat Pertinent Findings cough 03/25/2017 None sore throat Pertinent Findings Denies fever 03/25/2017 None nasal allergies Location in both nares 03/25/2017 None nasal allergies Onset and Resolution ongoing 03/25/2017 None nasal allergies Exacerbating Factors allergen exposure 03/25/2017 None nasal allergies Pertinent Findings cough 03/25/2017 None nasal allergies Pertinent Findings hoarseness 03/25/2017 None nasal allergies Onset of Symptom 11 days ago 03/25/2017 None sore throat Location diffusely 03/25/2017 None sore throat Onset of Symptom 5 days ago 03/25/2017 None cough Location in the lung 01/31/2017 None cough Quality acute None cough Onset and Resolution ongoing 01/31/2017 None cough Triggers known allergens 01/31/2017 None cough Pertinent Findings dyspnea 01/31/2017 None earache Location right ear 01/31/2017 None earache Quality acute 01/31/2017 None earache Onset and Resolution sudden in onset 01/31/2017 None earache Triggers no known triggers 01/31/2017 None sore throat Quality acute 01/31/2017 None sore throat Onset and Resolution sudden in onset 01/31/2017 None sore throat Pertinent Findings cough 01/31/2017 None sore throat Pertinent Findings Denies fever 01/31/2017 None cough Quality intermittent 01/31/2017 None cough Pertinent Findings chest discomfort 01/31/2017 None cough Pertinent Findings Denies chills 01/31/2017 None cough Pertinent Findings Denies fever 01/31/2017 None cough Pertinent Findings muscle aches 01/31/2017 None shortness of breath Quality acute 01/31/2017 None shortness of breath Quality breathlessness 01/31/2017 None shortness of breath Quality chest tightness 01/31/2017 None shortness of breath Quality intermittent 01/31/2017 None shortness of breath Alleviating Factors rest 01/31/2017 None shortness of breath Exacerbating Factors exertion 01/31/2017 None shortness of breath Pertinent Findings cough 01/31/2017 None cough Location in the lung 01/29/2017 None cough Quality acute None cough Onset and Resolution ongoing 01/29/2017 None cough Limitation on Activities does not limit activities 01/29/2017 None cough Frequency of Episodes unchanged 01/29/2017 None cough Significant Medical Conditions pulmonary disease 01/29/2017 None cough Triggers known allergens 01/29/2017 None cough Pertinent Findings dyspnea 01/29/2017 None cough Location in the lung 01/24/2017 None cough Quality acute None cough Onset and Resolution ongoing 01/24/2017 None cough Onset of Symptom _ days ago 01/24/2017 None cough Limitation on Activities does not limit activities 01/24/2017 None cough Frequency of Episodes unchanged 01/24/2017 None cough Significant Medical Conditions pulmonary disease 01/24/2017 None cough Triggers known allergens 01/24/2017 None cough Pertinent Findings dyspnea 01/24/2017 None sore throat Quality aching 12/10/2016 None sore throat Onset and Resolution sudden in onset 12/10/2016 None sore throat Onset of Symptom 1 days ago 12/10/2016 None sore throat Location on both sides 12/10/2016 None sore throat Quality constant 12/10/2016 None sore throat Quality acute 12/10/2016 None sore throat Pertinent Findings cough 12/10/2016 None sore throat Pertinent Findings decreased energy level 12/10/2016 None sore throat Pertinent Findings Denies drooling 12/10/2016 None sore throat Pertinent Findings Denies fever 12/10/2016 None sore throat Pertinent Findings ill contacts 12/10/2016 None sore throat Pertinent Findings hoarseness 12/10/2016 None sore throat Pertinent Findings nasal congestion 12/10/2016 None sore throat Pertinent Findings Denies oral ulcers 12/10/2016 None sore throat Pertinent Findings Denies unable to swallow 12/10/2016 states it hurts to swallow but she does it anyway sore throat Alleviating Factors rest 12/10/2016 None sore throat Alleviating Factors voice rest 12/10/2016 None sore throat Exacerbating Factors activity 12/10/2016 None sore throat Exacerbating Factors eating 12/10/2016 None sore throat Exacerbating Factors voice use 12/10/2016 None sore throat Triggers no known associated factors 12/10/2016 None hypertension Quality intermittent 06/11/2016 None hypertension Onset and Resolution ongoing 06/11/2016 None hypertension Blood Pressure Values not checking blood pressure at home 06/11/2016 None hypertension Pertinent Findings Denies acne 06/11/2016 None hypertension Pertinent Findings anxiety 06/11/2016 None hypertension Pertinent Findings Denies dizziness 06/11/2016 None hypertension Pertinent Findings Denies dyspnea 06/11/2016 None hypertension Onset of Symptom during adulthood 06/11/2016 None hypertension Severity not consistently severe symptoms, the symptoms fluctuate from no symptoms to anxiety and headaches 06/11/2016 None hypertension Frequency of Episodes unchanged 06/11/2016 None hypertension Significant Family History heart disease 06/11/2016 None hypertension Triggers stress 06/11/2016 None hypertension Alleviating Factors medication 06/11/2016 None cough Location in the throat 09/26/2015 None cough Quality productive 09/26/2015 None cough Onset of Symptom 4 days ago 09/26/2015 None cough Frequency of Episodes daily 09/26/2015 None cough Pertinent Findings chest discomfort 09/26/2015 achy from cough cough Pertinent Findings Denies fever 09/26/2015 None sinus congestion Onset of Symptom 4 days ago 09/26/2015 None sinus congestion Pertinent Findings cough 09/26/2015 None sinus congestion Pertinent Findings Denies fever 09/26/2015 None cough Onset and Resolution ongoing 09/26/2015 None cough Limitation on Activities does not limit activities 09/26/2015 None cough Triggers no known associated factors 09/26/2015 None sinus congestion Onset and Resolution ongoing 09/26/2015 None sinus congestion Severity mild 09/26/2015 None sinus congestion Frequency of Episodes increasing 09/26/2015 None sinus congestion Timing of Episodes all day long 09/26/2015 None sinus congestion Triggers no known associated factors 09/26/2015 None sinus congestion Location on both sides 09/26/2015 None sinus congestion Quality acute 09/26/2015 None shoulder pain Location diffusely 04/17/2015 right worse than left- using Ibuprofen but no change shoulder pain Quality acute 04/17/2015 None shoulder pain Onset and Resolution ongoing 04/17/2015 None shoulder pain Onset of Symptom _ months ago 04/17/2015 None shoulder pain Limitation on Activities does not limit activities 04/17/2015 None shoulder pain Triggers exertion 04/17/2015 None shoulder pain Alleviating Factors medication 04/17/2015 None shoulder pain Exacerbating Factors lifting 04/17/2015 None shoulder pain Exacerbating Factors activity 04/17/2015 None shoulder pain Pertinent Findings Denies fever 04/17/2015 None shoulder pain Pertinent Findings Denies insomnia 04/17/2015 None shoulder pain Triggers exertion 03/30/2015 None shoulder pain Alleviating Factors medication 03/30/2015 None shoulder pain Exacerbating Factors lifting 03/30/2015 None shoulder pain Exacerbating Factors activity 03/30/2015 None shoulder pain Quality acute 03/30/2015 None shoulder pain Location diffusely 03/30/2015 None shoulder pain Onset and Resolution ongoing 03/30/2015 None shoulder pain Onset of Symptom _ months ago 03/30/2015 None shoulder pain Limitation on Activities does not limit activities 03/30/2015 None shoulder pain Mechanism of injury unknown 03/30/2015 None shoulder pain Pertinent Findings Denies insomnia 03/30/2015 None shoulder pain Pertinent Findings Denies fever 03/30/2015 None Advance Directives No Advance Directive data Encounters Encounter Performer Location Codes Date EST. PATIENT, LEVEL IV Diagnosis: Localized edema[ICD10: R60.0] [facility] CPT-4 : 61929 10/13/2017 [id number]) [id number] EST. PATIENT, LEVEL IV Diagnosis: Essential (primary) hypertension[ICD10: I10] Diagnosis: Shortness of breath[ICD10: R06.02] Diagnosis: Mild intermittent asthma with (acute) exacerbation[ICD10: J45.21] Diagnosis: Contact with and (suspected) exposure to mold (toxic)[ICD10: Z77.120 ] Ally García MD, [facility] CPT-4: 76081 04/22/2017 ([id number]) [id number] EST. PATIENT, LEVEL III Diagnosis: Acute laryngopharyngitis[ICD10: J06.0] Diagnosis: Shortness of breath[ICD10: R06.02] Marce García MD, [facility] CPT-4: 02945 03/25/2017 59544 EST. PATIENT, LEVEL III Diagnosis: Shortness of breath[ICD10: R06.02] Diagnosis: Otalgia, bilateral[ICD10: H92.03] Diagnosis: Gastro-esophageal reflux disease without esophagitis[ICD10: K21.9] Diagnosis: Candidal stomatitis[ICD10: B37.0] Diagnosis: Palpitations[ICD10: R00.2] Diagnosis: Other allergic rhinitis[ICD10: J30.89] Delmy García MD, [facility] CPT-4: 56249 01/31/2017 59818 EST. PATIENT, LEVEL III Diagnosis: Shortness of breath[ICD10: R06.02] Diagnosis: Other allergic rhinitis[ICD10: J30.89] Delmy García MD, [facility] CPT-4: 95009 01/29/2017 ([id number]) 33383 EST. PATIENT, LEVEL III Diagnosis: Cough[ICD10: R05] Diagnosis: Acute bronchitis, unspecified[ICD10: J20.9] Marce García MD, [facility] CPT-4: 53171 01/24/2017 ([id number]) 85660 EST. PATIENT, LEVEL III Diagnosis: Acute laryngopharyngitis[ICD10: J06.0] Marce García MD, [facility] CPT-4: 94275 12/10/2016 ([id number]) 61068 EST. PATIENT, LEVEL IV Diagnosis: Essential (primary) hypertension[ICD10: I10] Diagnosis: Mixed hyperlipidemia[ICD10: E78.2] Marce García MD, [facility] CPT-4: 62371 06/11/2016 ([id number]) 10183 EST. PATIENT, LEVEL III Diagnosis: Streptococcal pharyngitis[ICD10: J02.0] Marce García MD, [facility] CPT-4: 92978 09/26/2015 ([id number]) 94778 EST. PATIENT, LEVEL III Diagnosis: Neck fullness[ICD9: 784.2] Diagnosis: CHEST SWELLING/MASS/LUMP[ICD9: 786.6] Marce García MD, [facility] CPT-4: 14915 04/17/2015 ([id number]) OFFICE VISIT, NEW - LEVEL 4 Diagnosis: ESSENTIAL HYPERTENSION[ICD9: 401.9] Diagnosis: EDEMA[ICD9: 782.3] Diagnosis: Elevated blood sugar[ICD9: 790.29] Diagnosis: Biceps tendonitis[ICD9: 726.12] Diagnosis: Neck fullness[ICD9: 784.2] Marce García MD, [facility] CPT-4: 64073 03/30/2015 Plan of Care Planned Activity Notes Codes Status Date Appointment: Delmy Lino WPtel: [address] [place], [place] [phone] (15 min) Moderate 11/03/2017 Visit Plan: Edema - pt has been advised to elevate legs to prevent dependent edema, compression has been recommended to help to naturally decrease peripheral edema. Diuretic use has been discussed and pt has been instructed in appropriate use of such medication as necessary to further attempt to reduce peripheral edema. 10/13/2017 Appointment: Delmy Lino WPtel: [address] [place], [place] [phone] (30 min) Complex 10/13/2017 Patient Education: Patient Medication Summary Completed 10/13/2017 Visit Plan: Dyspnea - copd like symptoms - likely due to her mold exposure - needs appt with jael. continue with breo - rx for prn use albuterol respi-click. Hypertension - well controlled - continue with current medications, continue with no added salt diet. Pt has been encouraged to exercise daily. The pt has been advised to call the office if there are any acute concerns about change in blood pressure readings at home. 04/22/2017 Appointment: Ally García WPtel: [facility] [place] (15 min) Moderate 04/22/2017 Patient Education: Patient Medication Summary Completed 04/22/2017 Patient Education: Obesity Completed 04/22/2017 Patient Education: Hypertension Completed 04/22/2017 Care Plan: Referral Order SNOMED-CT : [id number] Pending 04/22/2017 Patient Education: Patient Medication Summary Completed 03/27/2017 Visit Plan: Pharyngitis-Discussed natural and expected course of this diagnosis and need to alert me if symptoms do not follow expected course, or if any worse. Recommended salt water gargles as needed for pain. Tylenol/motrin as needed for fever/discomfort. Shortness of breath- ongiong issue-CTA negative, echo ef 60%, schedule PFT 03/25/2017 [phone] [phone] [place] (30 min) Complex 03/25/2017 Patient Education: Patient Medication Summary Completed 03/25/2017 Patient Education: Obesity Completed 03/25/2017 Referral: Josefina Mclean Referral Initiated 02/14/2017 Care Plan: CT THORAX W/O DYE LOINC : 75401-2 Pending 02/03/2017 Care Plan: Referral Order SNOMED-CT : [id number] Pending 02/02/2017 Visit Plan: Persistent shortness of breath, palpitations - will order Echo and refer to Dr. Mclean. Pt states that her job used to have a problem with mold - will refer to Dr. Elmore for possible allergy testing. Thrush - will send RX - pt is to notify clinic if symptoms do not improve, if they worsen, or with any questions or concerns. Esophageal Reflux - the patient has been counseled against excessive intake of caffeine, spicy foods, peppermint , and cinnamon - all of which can exacerbate esophageal reflux. The patient is to take medications as prescribed and call the office if the symptoms are not improving. 01/31/2017 Appointment: [facility] [phone] [facility] [place] (15 min) Moderate 01/31/2017 Patient Education: Patient Medication Summary Completed 01/31/2017 Visit Plan: Persistent shortness of breath - pt has recently been on a vacation to [place] and they drove there and back - discussed with Dr. García - will order a CTA - will treat pending results. 01/29/2017 Appointment: Delmy Lino WPtel: [facility] (15 min) Moderate 01/29/2017 Patient Education: Patient Medication Summary Completed 01/29/2017 Visit Plan: Bronchitis - acute case of bronchitis identified. Pt has been given antibiotics, breathing treatments as appropriate, and pt has been instructed to call if symptoms are not improved, or if symptoms acutely worsen. 01/24/2017 Appointment: Marce Chacon WPtel: [facility] [place] [phone] (30 min) Complex 01/24/2017 Patient Education: Patient Medication Summary Completed 01/24/2017 Visit Plan: Pharyngitis-Discussed natural and expected course of this diagnosis and need to alert me if symptoms do not follow expected course, or if any worse. Recommended salt water gargles as needed for pain. Tylenol/motrin as needed for fever/discomfort. 12/10/2016 Visit Plan: Pharyngitis-Discussed natural and expected course of this diagnosis and need to alert me if symptoms do not follow expected course, or if any worse. Recommended salt water gargles as needed for pain. Tylenol/motrin as needed for fever/discomfort. 12/10/2016 Appointment: Marce Chacon WPtel: [phone] (15 min) Moderate 12/10/2016 Patient Education: Patient Medication Summary Completed 12/10/2016 Visit Plan: Hypertension - well controlled - continue with current medications, continue with no added salt diet. Pt has been encouraged to exercise daily. The pt has been advised to call the office if there are any acute concerns about change in blood pressure readings at home. Hyperlipidemia - pt has been counseled about appropriate diet, exercise, and need for low fat food choices. I have discussed the need for the patient to take medications as prescribed. If the patient has negative side effects from the medication, they are to CALL the office and not abruptly discontinue the medication without discussion with a practitioner in the office. We will check labs in 3-6 months for follow up on the patient's chronic medical problem and to assure normal liver response to medications. 06/11/2016 Patient Education: Patient Medication Summary Completed 06/11/2016 Patient Education: Obesity Completed 06/11/2016 [facility]ment: [facility] [phone] [phone] (15 min) Moderate 02/06/2016 Visit Plan: Strep throat - pt give rx for antibiotic - sent to pharmacy - pt had swab of throat today - will culture the swab. 09/26/2015 Patient Education: Patient Medication Summary Completed 09/26/2015 Care Plan: C LULY A SC Pending 09/26/2015 Appointment: Nurse Visit 05/04/2015 Patient Education: Patient Medication Summary Completed 05/04/2015 Visit Plan: Neck-chest swelling-plan to schedule CT of neck /chest to further evaluate 04/17/2015 Appointment: (15 min) Moderate 04/17/2015 Patient Education: Patient Medication Summary Completed 04/17/2015 Appointment: (S) New Patient 03/31/2015 Visit Plan: Hypertension - well controlled - continue with current medications, continue with no added salt diet. Pt has been encouraged to exercise daily. The pt has been advised to call the office if there are any acute concerns about change in blood pressure readings at home. Edema - pt has been advised to elevate legs to prevent dependent edema, compression has been recommended to help to naturally decrease peripheral edema. Diuretic use has been discussed and pt has been instructed in appropriate use of such medication as necessary to further attempt to reduce peripheral edema. Elevated blood sugars-check Hgb A1C Biceps tendonitis-rest, anti inflammatories, and exercises as directed Left Neck/upper chest soft tissue [id number] persistent- check labs and CT scan 03/30/2015 Appointment: (S) New Patient 03/30/2015 Patient Education: Patient Medication Summary Completed 03/30/2015 Patient Education: Hypertension Completed 03/30/2015 Referral: Josefina Mclean Referral Initiated Referral: Mike Lerma Referral Appointment Requested Instructions Comment . Persistent shortness of breath - pt has recently been on a vacation to [place] and they drove there and back - discussed with Dr. García - will order a CTA - will treat pending results. . Hypertension - well controlled - continue with current medications, continue with no added salt diet. Pt has been encouraged to exercise daily. The pt has been advised to call the office if there are any acute concerns about change in blood pressure readings at home. Hyperlipidemia - pt has been counseled about appropriate diet, exercise, and need for low fat food choices. I have discussed the need for the patient to take medications as prescribed. If the patient has negative side effects from the medication, they are to CALL the office and not abruptly discontinue the medication without discussion with a practitioner in the office. We will check labs in 3-6 months for follow up on the patient's chronic medical problem and to assure normal liver response to medications. RESTART WATER PILL FOLLOW UP IN 2 WEEKS TO EVALUATE NECK AND CHEST FULLNESS . Hypertension - well controlled - continue with current medications, continue with no added salt diet. Pt has been encouraged to exercise daily. The pt has been advised to call the office if there are any acute concerns about change in blood pressure readings at home. Edema - pt has been advised to elevate legs to prevent dependent edema, compression has been recommended to help to naturally decrease peripheral edema. Diuretic use has been discussed and pt has been instructed in appropriate use of such medication as necessary to further attempt to reduce peripheral edema. Elevated blood sugars-check Hgb A1C Biceps tendonitis-rest, anti inflammatories, and exercises as directed Left Neck/upper chest soft tissue qjehpqdj-opftavr-vq persistent-check labs and CT scan . Dyspnea - copd like symptoms - likely due to her mold exposure - needs appt with jael. continue with breo - rx for prn use albuterol respi-click. Hypertension - well controlled - continue with current medications, continue with no added salt diet. Pt has been encouraged to exercise daily. The pt has been advised to call the office if there are any acute concerns about change in blood pressure readings at home. . Strep throat - pt give rx for antibiotic - sent to pharmacy - pt had swab of throat today - will culture the swab. . Pharyngitis-Discussed natural and expected course of this diagnosis and need to alert me if symptoms do not follow expected course, or if any worse. Recommended salt water gargles as needed for pain. Tylenol/ motrin as needed for fever/discomfort. . Pharyngitis-Discussed natural and expected course of this diagnosis and need to alert me if symptoms do not follow expected course, or if any worse. Recommended salt water gargles as needed for pain. Tylenol/ motrin as needed for fever/discomfort. SCHEDULE CT NECK/CHEST . Neck-chest swelling-plan to schedule CT of neck/chest to further evaluate PFT amoxicillin strep swab . Pharyngitis-Discussed natural and expected course of this diagnosis and need to alert me if symptoms do not follow expected course, or if any worse. Recommended salt water gargles as needed for pain. Tylenol/motrin as needed for fever/discomfort. Shortness of breath-ongiong issue-CTA negative, echo ef 60%, schedule PFT . Edema - pt has been advised to elevate legs to prevent dependent edema, compression has been recommended to help to naturally decrease peripheral edema. Diuretic use has been discussed and pt has been instructed in appropriate use of such medication as necessary to further attempt to reduce peripheral edema. . Persistent shortness of breath, palpitations - will order Echo and refer to Dr. Mclean. Pt states that her job used to have a problem with mold - will refer to Dr. Elmore for possible allergy testing. Thrush - will send RX - pt is to notify clinic if symptoms do not improve, if they worsen, or with any questions or concerns. Esophageal Reflux - the patient has been counseled against excessive intake of caffeine, spicy foods, peppermint, and cinnamon - all of which can exacerbate esophageal reflux. The patient is to take medications as prescribed and call the office if the symptoms are not improving. KENALOG TODAY-START PREDNISONE TOMORROW START ZPACK TODAY CALL FRIDAY IF NOT BETTER ER OVER THE WEEKEND IF SHORTNESS OF BREATH WORSENS . Bronchitis - acute case of bronchitis identified. Pt has been given antibiotics, breathing treatments as appropriate, and pt has been instructed to call if symptoms are not improved, or if symptoms acutely worsen.
[2019-01-28] MEDS ORDERED: LIDOCAINE 1% INJ 20 ML 20 ML VIAL INJ ONE (08:30)
--- OUTSIDE RECORDS SUMMARY | 2019-01-28 08:30 | XMS REPORT | CCD ---
Author Author [facility] Address [address] [place] [address] Phone Care Team Providers Care Dairy Specialist Name Role Phone PP Unavailable CCM Unavailable Summary Purpose Interface Exchange Insurance Providers Payer name Policy type / Coverage type Covered constitution party ID Effective Begin Date Effective End Date Blue Cross [facility] Blue Cross/[facility] [id number] Unknown Unknown Family history Father Diagnosis Age At Onset Arthritis Unknown Sister Diagnosis Age At Onset Arthritis Unknown Cancer Unknown kidney disease Unknown Mother Diagnosis Age At Onset Hypertension Unknown Stroke Unknown Osteoporosis Unknown Social History Social History Element Codes Description Effective Dates Marital status Unknown Navdeep 01/31/2017 Number of children Unknown 3 03/30/[address]: 1655154 Former smoker 03/30/2015 Allergies, Adverse Reactions, Alerts [...] Fill Instructions Lasix 20 mg tablet RxNorm: 051360 1 Tablet(s) PO daily 201711/01/2017 Inactive take 2 postassium pills daily while on the lasix Keflex 500 mg capsule RxNorm: 051195 1 Capsule(s) PO TID 201610/16/2017 Inactive Keflex 500 mg capsule RxNorm: 596962 1 Capsule(s) PO TID 201610/26/2017 Inactive Keflex 500 mg capsule RxNorm: 829312 1 Capsule(s) PO TID 201610/16/2017 Inactive Lasix 20 mg tablet RxNorm: 434226 1 Tablet(s) PO daily 201610/19/2017 Inactive take 2 postassium pills daily while on the lasix potassium chloride ER 20 mEq tablet,extended release RxNorm: 133432 Tablet(s) TAKE ONE TABLET BY MOUTH DAILY 10/13/2017 02/09/2018 Active Lasix 20 mg tablet RxNorm: 633743 1 Tablet(s) PO daily 201610/14/2017 Inactive take 2 postassium pills daily while on the lasix triamterene 37.5 mg-hydrochlorothiazide 25 mg tablet RxNorm: 266709 TAKE ONE AND ONE-HALF (1 1/2) TABLETS BY MOUTH DAILY 08/04/2017 12/01/2017 Active omeprazole 20 mg capsule,delayed release RxNorm: 659104 TAKE ONE CAPSULE BY MOUTH DAILY 06/17/2017 12/13/2017 Active potassium chloride ER 20 mEq tablet,extended release RxNorm: 005862 TAKE ONE TABLET BY MOUTH DAILY 06/03/20172016 Inactive ProAir RespiClick 90 mcg/actuation breath activated RxNorm: 3388613 2 INH QID as needed 04/22/2017 06/20/2017 Inactive omeprazole 20 mg capsule,delayed release RxNorm: 017881 1 Capsule(s) PO daily 04/22/2017 06/16/2017 Inactive potassium chloride ER 20 mEq tablet,extended release RxNorm: 614506 1 Tablet(s) PO daily 04/04/2017 04/03/2017 Inactive potassium chloride ER 20 mEq tablet,extended release RxNorm: 842768 1 Tablet(s) PO daily 04/04/2017 06/02/2017 Inactive Breo Ellipta 200 mcg-25 mcg/dose powder for inhalation RxNorm: 9340144 1 Puff(s) INH daily 04/03/2017 07/31/2017 Inactive triamterene 37.5 mg-hydrochlorothiazide 25 mg tablet RxNorm: 901414 1 1/2 Tablet(s ) TAKE ONE TABLET BY MOUTH DAILY 04/03/2017 08/03/2017 Inactive amoxicillin 500 mg tablet RxNorm: 688662 1 Tablet(s) PO BID 04/03/2017 Inactive Diflucan 150 mg tablet RxNorm: 592552 1 Tablet(s) PO daily 04/201702/06/2017 Inactive Ventolin HFA 90 mcg/actuation aerosol inhaler RxNorm: 255437 1 Puff(s) INH Q4-6H as needed 01/30/2017 No Stop Date Active Kenalog 40 mg/mL suspension for injection RxNorm: 0332479 1 Milliliter(s) Inj 01/24/2017 01/24/2017 Inactive Zithromax Z-Bishop 250 mg tablet RxNorm: 046305 1 Tablet(s) PO UD 01/24/2017 01/28/2017 Inactive prednisone 20 mg tablet RxNorm: 654535 1 Tablet(s) PO BID 01/2401/28/2017 Inactive triamterene 37.5 mg-hydrochlorothiazide 25 mg tablet RxNorm: 594902 TAKE ONE TABLET BY MOUTH DAILY 01/06/20172016 Inactive Zithromax Z-Bishop 250 mg tablet RxNorm: 645998 1 Tablet(s) PO UD 12/31/2016 12/31/2016 Inactive z pack as directed Augmentin 500 mg-125 mg tablet RxNorm: 068947 1 Tablet(s) PO TID 12/31/2016 12/30/2016 Inactive DC zpack Augmentin 500 mg-125 mg tablet RxNorm: 530338 1 Tablet(s) PO TID 12/31/2016 01/06/2017 Inactive DC zpack Keflex 500 mg capsule RxNorm: 801090 1 Capsule(s) PO TID 201612/15/2016 Inactive Keflex 500 mg capsule RxNorm: 602379 1 Capsule(s) PO TID 201612/22/2016 Inactive triamterene 37.5 mg-hydrochlorothiazide 25 mg tablet RxNorm: 679088 TAKE ONE TABLET BY MOUTH DAILY 07/04/20162016 Inactive triamterene 37.5 mg-hydrochlorothiazide 25 mg tablet RxNorm: 877934 TAKE ONE TABLET BY MOUTH DAILY 01/01/20162015 Inactive amoxicillin 500 mg tablet RxNorm: 259217 1 Tablet(s) PO BID 10/201410/05/2015 Inactive Bactrim DS 800 mg-160 mg tablet RxNorm: 599238 1 Tablet(s) PO BID 05/04/2015 05/03/2015 Inactive fluconazole 150 mg tablet RxNorm: 835308 1 Tablet(s) PO daily 05/04/2015 05/03/2015 Inactive fluconazole 150 mg tablet RxNorm: 929600 1 Tablet(s) PO daily 05/04/2015 05/10/2015 Inactive Bactrim DS 800 mg-160 mg tablet RxNorm: 010172 1 Tablet(s) PO BID 05/04/2015 05/13/2015 Inactive triamterene 37.5 mg-hydrochlorothiazide 25 mg tablet RxNorm: 489579 1 Tablet(s) PO daily 03/30/2015 12/24/2015 Inactive Probiotic (S.boulardii) oral RxNorm: 129849 oral No Start Date Active melatonin 10 mg tablet RxNorm: 4139674 1 Tablet(s) PO QHS as needed No Start Date Active flaxseed oil RxNorm: 342406 miscellaneous No Start Date Active alprazolam 0.25 mg tablet RxNorm: 276606 1 Tablet(s) PO PRN No Start Date Active [employer] oral RxNorm: oral No Start Date Active Zithromax Z-Bishop 250 mg tablet RxNorm: 128931 1 Tablet(s) PO UD No Start Date 12/30/2016 Inactive z pack as directed Ventolin HFA 90 mcg/actuation aerosol inhaler RxNorm: 467301 1 Puff(s) INH Q4-6H as needed No Start Date 01/29/2017 Inactive triamterene 37.5 mg-hydrochlorothiazide 25 mg tablet RxNorm: 870991 1 Tablet(s) PO daily No Start Date 03/29/2015 Inactive Medication Administered Medication Codes Instructions Start Date Status Kenalog 40 mg/mL suspension for injection RxNorm: 2581504 1Milliliter 01/24/2017 No longer Active Immunizations Vaccine [...] 8.9 mg/dL 03/27/2017 C RAP A SC 4719913 Strep A Negative 03/25/2017 Cbc With Differential [...] 30.1 pg 02/10/2017 Cbc With Differential Ord2 [place]% 7.5 % 02/10/2017 Cbc With Differential Ord2 [...] 3.01 K/ul 02/10/2017 Cbc With Differential Ord2 [place] ABS# 0.6 K/ul 02/10/2017 Cbc With Differential Ord2 Eos ABS# 0.2 K/ul 02/10/2017 Cbc With Differential Ord2 Baso ABS# 0.1 K/ul 02/10/2017 C RAP A SC 0105588 Strep A Negative 12/10/2016 %Hba1C Ayf475 % HbA1c 47245-3 6.3 % 06/10/2016 %Hba1C Bku994 Gluc Ave 134 mg/dL 06/10/2016 Tsh Ord6 [...] 29.9 pg 06/10/2016 Cbc With Differential Ord2 [place]% 7.1 % 06/10/2016 Cbc With Differential Ord2 [...] 2.85 K/ul 06/10/2016 Cbc With Differential Ord2 [place] ABS# 0.5 K/ul 06/10/2016 Cbc With Differential Ord2 Eos ABS# 0.2 K/ul 06/10/2016 Cbc With Differential Ord2 Baso ABS# 0.1 K/ul 06/10/2016 Comp Metabolic Tut524 NA 141 mEq/L 06/10/2016 Comp Metabolic Hyc577 K 3.7 mEq/L 06/10/2016 Comp Metabolic Xrf874 CL 100 mEq/L 06/10/2016 Comp Metabolic Mxu139 CO2 33.0 mEq/L 06/10/2016 Comp Metabolic Alz626 ANION GAP 12 06/10/2016 Comp Metabolic Mrd291 GLUCOSE 128 mg/dL 06/10/2016 Comp Metabolic Lqe409 Creat 0.8 mg/dL 06/10/2016 Comp Metabolic Wpl305 eGFR 76 ml/min/1.73m2 06/10/2016 Comp Metabolic Qma948 BUN 14 mg/dL 06/10/2016 Comp Metabolic Ljw604 B/C Ratio 17.1 Ratio 06/10/2016 Comp Metabolic Vnj101 CALCIUM 9.5 mg/dL 06/10/2016 Comp Metabolic Tmp289 ALK PHOS 109 U/L 06/10/2016 Comp Metabolic Kek757 AST(SGOT) 16 U/L 06/10/2016 Comp Metabolic Upm240 ALT(SGPT) 20 U/L 06/10/2016 Comp Metabolic Ddm558 BILI T 0.5 mg/dL 06/10/2016 Comp Metabolic Wkw082 ALBUMIN 4.1 g/dL 06/10/2016 Comp Metabolic Ylk424 TPRO 6.8 g/dL 06/10/2016 Comp Metabolic Ewl349 GLOB 2.7 g/dL 06/10/2016 Comp Metabolic Wyr205 A/G Ratio 1.5 Ratio 06/10/2016 Comp Metabolic Qzy028 Osmo 283 mOsmo 06/10/2016 Lipid Ord30 CHOL [...] A SC (STREP A ASSAY W/OPTIC) CPT-4: 28023 09/26/2015 URINALYSIS NONAUTO W/O SCOPE CPT-4: 50028 05/04/2015 Vital Signs Date Vital 10/13/2017 Blood Pressure 1: 140/78 Code : 8480-6 BMI: 34.2 Code : 64185-5 Heart Rate 1 : 92 bpm Height: 5'6" SpO2: 97% Weight: 212 lbs 04/22/2017 Blood Pressure 1: 138/88 Code : 8480-6 BMI: 34.2 Code : 85727-9 Heart Rate 1 : 104 bpm Height: 5'6" SpO2: 96% Weight: 212 lbs 03/25/2017 Blood Pressure 1: 138/86 Code : 8480-6 BMI: 34.1 Code : 35066-0 Heart Rate 1 : 99 bpm Height: 5'6" SpO2: 96% Weight: 211 lbs 01/31/2017 Blood Pressure 1: 132/80 Code : 8480-6 Heart Rate 1: 86 bpm Height: 5'6" SpO2: 99% Temperature: 36.9 (C) / 98.5 (F) Weight: 01/29/2017 Blood Pressure 1: 140/92 Code : 8480-6 BMI: 34.2 Code : 62818-9 Heart Rate 1 : 81 bpm Height: 5'6" SpO2: 98% Weight: 212 lbs 01/24/2017 Blood Pressure 1: 144/96 Code : 8480-6 BMI: 34.1 Code : 56494-4 Heart Rate 1 : 91 bpm Height: 5'6" SpO2: 98% Temperature: 36.7 (C) / 98.1 (F) Weight: 211 lbs 12/10/2016 Blood Pressure 1: 108/62 Code : 8480-6 BMI: 34.2 Code : 34203-4 Heart Rate 1 : 80 bpm Height: 5'6" SpO2: 97% Weight: 212 lbs 06/11/2016 Blood Pressure 1: 130/70 Code : 8480-6 BMI: 33.2 Code : 05710-7 Heart Rate 1 : 76 bpm Height: 5'6" SpO2: 96% Weight: 206 lbs 09/26/2015 Blood Pressure 1: 138/78 Code : 8480-6 BMI: 33.2 Code : 90198-9 Heart Rate 1 : 102 bpm Height: 5'6" Weight: 206 lbs 04/17/2015 Blood Pressure 1: 126/88 Code : 8480-6 BMI: 33.7 Code : 44102-2 Height: 5'6" Weight: 209 lbs 03/30/2015 Blood Pressure 1: 126/68 Code : 8480-6 BMI: 34.2 Code : 70354-8 Heart Rate 1 : 80 bpm Height: [...] R60.0] [facility] CPT-4 : 44565 10/13/2017 [id number]) 63581 EST. PATIENT, LEVEL IV Diagnosis: Essential (primary) hypertension[ICD10: I10] Diagnosis: Shortness of breath[ICD10: R06.02] Diagnosis: Mild intermittent asthma with (acute) exacerbation[ICD10: J45.21] Diagnosis: Contact with and (suspected) exposure to mold (toxic)[ICD10: Z77.120 ] Ally García MD, [facility] CPT-4: 71201 04/22/2017 ([id number]) 21032 EST. PATIENT, LEVEL III Diagnosis: Acute laryngopharyngitis[ICD10: J06.0] Diagnosis: Shortness of breath[ICD10: R06.02] Marce García MD, [facility] CPT-4: 82818 03/25/2017 95419 EST. PATIENT, LEVEL III Diagnosis: Shortness of breath[ICD10: R06.02] Diagnosis: Otalgia, bilateral[ICD10: H92.03] Diagnosis: Gastro-esophageal reflux disease without esophagitis[ICD10: K21.9] Diagnosis: Candidal stomatitis[ICD10: B37.0] Diagnosis: Palpitations[ICD10: R00.2] Diagnosis: Other allergic rhinitis[ICD10: J30.89] Delmy García MD, [facility] CPT-4: 32544 01/31/2017 68217 EST. PATIENT, LEVEL III Diagnosis: Shortness of breath[ICD10: R06.02] Diagnosis: Other allergic rhinitis[ICD10: J30.89] Delmy García MD, [facility] CPT-4: 28913 01/29/2017 ([id number]) 93061 EST. PATIENT, LEVEL III Diagnosis: Cough[ICD10: R05] Diagnosis: Acute bronchitis, unspecified[ICD10: J20.9] Marce García MD, [facility] CPT-4: 86113 01/24/2017 ([id number]) 55856 EST. PATIENT, LEVEL III Diagnosis: Acute laryngopharyngitis[ICD10: J06.0] Marce García MD, [facility] CPT-4: 07968 12/10/2016 ([id number]) 77559 EST. PATIENT, LEVEL IV Diagnosis: Essential (primary) hypertension[ICD10: I10] Diagnosis: Mixed hyperlipidemia[ICD10: E78.2] Marce García MD, [facility] CPT-4: 93086 06/11/2016 ([id number]) 20267 EST. PATIENT, LEVEL III Diagnosis: Streptococcal pharyngitis[ICD10: J02.0] Marce García MD, [facility] CPT-4: 76604 09/26/2015 ([id number]) 76984 EST. PATIENT, LEVEL III Diagnosis: Neck fullness[ICD9: 784.2] Diagnosis: CHEST SWELLING/MASS/LUMP[ICD9: 786.6] Marce García MD, [facility] CPT-4: 18633 04/17/2015 ([id number]) OFFICE VISIT, NEW - LEVEL 4 Diagnosis: ESSENTIAL HYPERTENSION[ICD9: 401.9] Diagnosis: EDEMA[ICD9: 782.3] Diagnosis: Elevated blood sugar[ICD9: 790.29] Diagnosis: Biceps tendonitis[ICD9: 726.12] Diagnosis: Neck fullness[ICD9: 784.2] Marce García MD, [facility] CPT-4: 93054 03/30/2015 Plan of Care Planned Activity Notes Codes Status Date Appointment: Delmy Lino WPtel: [address] [place], [place] [phone] (15 min) Moderate 11/03/2017 Visit Plan: Edema - pt has been advised to elevate legs to prevent dependent edema, compression has been recommended to help to naturally decrease peripheral edema. Diuretic use has been discussed and pt has been instructed in appropriate use of such medication as necessary to further attempt to reduce peripheral edema. 10/13/2017 Appointment: Delmy Lino WPtel: [address] [place], [place] [phone] (30 min) Complex 10/13/2017 Patient Education: Patient [...] at home. 04/22/2017 Appointment: Ally García WPtel: [facility] [phone] [place] (15 min) Moderate 04/22/2017 Patient Education: Patient Medication Summary Completed 04/22/2017 Patient Education: Obesity Completed 04/22/2017 Patient Education: Hypertension Completed 04/22/2017 Care Plan: Referral Order SNOMED-CT : [id number] Pending 04/22/2017 Patient Education: Patient Medication Summary [...] PFT 03/25/2017 [facility] [phone] [phone] [place] (30 min) Complex 03/25/2017 Patient Education: Patient Medication Summary Completed 03/25/2017 Patient Education: Obesity Completed 03/25/2017 Referral: Josefina Mclean Referral Initiated 02/14/2017 Care Plan: CT THORAX W/O DYE LOINC : 99461-8 Pending 02/03/2017 Care Plan: Referral Order SNOMED-CT : 795830575 Pending 02/02/2017 Visit Plan: Persistent shortness of [...] not improving. 01/31/2017 App[facility]ment: [facility] [phone] [facility] [place] (15 min) Moderate 01/31/2017 Patient Education: Patient Medication Summary Completed 01/31/2017 Visit Plan: Persistent shortness of breath - pt has recently been on a vacation to [place] and they drove there and back - discussed with Dr. García - will order a CTA - will treat pending results. 01/29/2017 Appointment: Delmy Lino WPtel: [facility] [place] (15 min) Moderate 01/29/2017 Patient Education: Patient Medication Summary Completed 01/29/2017 Visit Plan: Bronchitis - acute case of bronchitis identified. Pt has been given antibiotics, breathing treatments as appropriate, and pt has been instructed to call if symptoms are not improved, or if symptoms acutely worsen. 01/24/2017 Appointment: Marce Chacon WPtel: [facility] [place] [place] [phone] (30 min) Complex 01/24/2017 Patient Education: Patient [...] for fever/discomfort. 12/10/2016 Appointment: Marce Chacon WPtel: [phone] (15 min) Moderate 12/10/2016 Patient Education: Patient [...] Completed 06/11/2016 App[facility]ment: [facility] [phone] [phone] (15 min) Moderate 02/06/2016 Visit Plan: [...] as directed Left Neck/upper chest soft tissue cybndiqi-gylhuag-de persistent- check labs and CT scan 03/30/2015 Appointment: (S) New Patient 03/30/2015 Patient Education: Patient Medication Summary Completed 03/30/2015 Patient Education: Hypertension Completed 03/30/2015 Referral: Josefina Mclean Referral Initiated Referral: Mike Lerma Referral Appointment Requested Instructions Comment . Persistent shortness of breath - pt has recently been on a vacation to [place] and they drove there and back - [...] as directed Left Neck/upper chest soft tissue eelqrxqk-bowainl-gc persistent-check labs and CT scan . Dyspnea [...]
--- OUTSIDE RECORDS SUMMARY | 2019-01-28 08:31 | XMS REPORT | Continuity of Care Document ---
Demographics Preferred Language Unknown Marital Status Unknown Sikhism Affiliation Unknown Race Unknown Ethnic Group Unknown Author [facility] Address Unknown Phone Unavailable Allergies Active Description Code Type Severity Reaction Onset Reported/Identified Relationship to Patient Clinical Status Yes codeine [id number] Drug Allergy Unknown N/A 12/30/2007 Medications There is no data. Problems Date Dx Coded Attending Type Code Diagnosis Diagnosed By 05/01/2012 Ot 211.3 BENIGN NEOPLASM LG BOWEL 05/01/2012 Ot 569.0 ANAL RECTAL POLYP 05/01/2012 Ot V76.51 SCREEN MAL NEOP-COLON 08/13/2012 V06.1 TDAP DX 08/26/2012 V05.8 ZOSTAVAX DX 04/19/2015 Ot V76.12 04/19/2015 Ot 726.10 04/19/2015 Ot 611.72 04/19/2015 Ot V72.84 04/19/2015 BERT VARELA MD Ot 719.47 04/19/2015 BERT VARELA MD Ot V15.59 04/19/2015 Ot V76.12 05/04/2015 MALVIN QIU Ot 784.2 05/04/2015 MALVIN QIU Ot 786.6 04/16/2016 IFTIKHAR GUSMAN APRN Ot Z12.31 ENCNTR SCREEN MAMMOGRAM FOR MALIGNANT NE 04/18/2016 IFTIKHAR GUSMAN APRN Ot Z12.31 ENCNTR SCREEN MAMMOGRAM FOR MALIGNANT NE 05/02/2016 IFTIKHAR GUSMAN APRN Ot Z12.31 ENCNTR SCREEN MAMMOGRAM FOR MALIGNANT NE 01/31/2017 Ot 611.72 LUMP OR MASS IN BREAST 01/31/2017 Ot V72.84 EXAM PRE- OPERATIVE NOS 01/31/2017 BERT VARELA MD Ot 719.47 JOINT PAIN-ANKLE 01/31/2017 BERT VARELA MD Ot V15.59 PERSONAL HISTORY OF OTHER INJURY 01/31/2017 Ot V76.12 OTH SCREEN MAMMO-MALIGN NEOPLASM OF MEHUL 01/31/2017 QIU, MALVIN M MINILAB OPERATOR Ot 784.2 SWELLING IN HEAD NECK 01/31/2017 MALVIN QIU MINILAB OPERATOR Ot 786.6 CHEST SWELLING/MASS/LUMP 01/31/2017 IFTIKHAR GUSMAN [employer]MI[employer] Ot Z12.31 ENCNTR SCREEN MAMMOGRAM FOR MALIGNANT NE 01/31/2017 IFTIKHAR GUSMAN [employer] CHEMI[employer] TE[employer]ER Ot R06.02 SHORTNESS OF BREATH 02/03/2017 IFTIKHAR GUSMAN [employer] CHEMI[employer] TE[employer]ER Ot R06.02 SHORTNESS OF BREATH 02/03/2017 IFTIKHAR GUSMAN [employer] CHEMI[employer] TE[employer]ER Ot R07.89 OTHER CHEST PAIN 02/14/2017 IFTIKHAR GUSMAN [employer] CHEMI[employer] TE[employer]ER Ot R06.02 SHORTNESS OF BREATH 02/14/2017 IFTIKHAR GUSMAN [employer] CHEMISTR[employer] TEACHER Ot R06.02 SHORTNESS OF BREATH 02/14/2017 IFTIKHAR GUSMAN [employer] CHEMISTR[employer] TEACHER Ot R07.89 OTHER CHEST PAIN 02/20/2017 IFTIKHAR GUSMAN [employer] CHEMISTR[employer] TEACHER Ot R00.2 PALPITATIONS 02/20/2017 IFTIKHAR GUSMAN [employer] CHEMISTR[employer] TEACHER Ot R06.02 SHORTNESS OF BREATH 03/05/2017 IFTIKHAR GUSMAN [employer] CHEMI[employer] TE[employer]ER Ot R00.2 PALPITATIONS 03/05/2017 IFTIKHAR GUSMAN [employer] CHEMISTRY TEACHER Ot R06.02 SHORTNESS OF BREATH 03/20/2017 IFTIKHAR GUSMAN [employer] CHEMISTR[employer] TEACHER Ot R00.2 PALPITATIONS 03/20/2017 IFTIKHAR GUSMAN [employer] CHEMISTR[employer] TEACHER Ot R05 COUGH 03/20/2017 IFTIKHAR GUSMAN [employer] CHEMISTR[employer] TEACHER Ot R06.00 DYSPNEA, UNSPECIFIED 04/04/2017 MALVIN QIU MINILAB OPERATOR Ot R05 COUGH 04/04/2017 MALVIN QIU MINILAB OPERATOR Ot R06.00 DYSPNEA, UNSPECIFIED 04/17/2017 MALVIN QIU MINILAB OPERATOR Ot R05 COUGH 04/17/2017 MALVIN QIU MINILAB OPERATOR Ot R06.00 DYSPNEA, UNSPECIFIED 05/20/2017 IFTIKHAR GUSMAN [employer] CHEMISTR[employer] TEACHER Ot Z12.31 ENCNTR SCREEN MAMMOGRAM FOR MALIGNANT NE 05/26/2017 JOYCE SERVIN APRN Ot G47.10 HYPERSOMNIA, UNSPECIFIED 05/27/2017 JOYCE SERVIN APRN Ot J44.9 CHRONIC OBSTRUCTIVE PULMONARY DISEASE, U 05/27/2017 JOYCE SERVIN APRN Ot R06.02 SHORTNESS OF BREATH 05/30/2017 IFTIKHAR GUSMAN [employer] CHEMISTR[employer] TEACHER Ot Z12.31 ENCNTR SCREEN MAMMOGRAM FOR MALIGNANT NE 06/18/2017 MALATHIGENA CONNELLINE E [employer]IGH SCHO[employer] CHEMISTRY TEACHER Ot J44.9 CHRONIC OBSTRUCTIVE PULMONARY DISEASE, U 06/18/2017 MALATHIGENAJOYCE E HIGH SCHOOL CHEMISTRY TEACHER Ot R06.02 SHORTNESS OF BREATH 07/26/2017 MALATHI JOYCE E [employer]IGH SCHO[employer] CHEMISTRY TEACHER Ot J44.9 CHRONIC OBSTRUCTIVE PULMONARY DISEASE, U 07/26/2017 MALATHI JOYCE E [employer]IGH SCHO[employer] CHEMISTRY TEACHER Ot R06.02 SHORTNESS OF BREATH 07/29/2017 MALATHI JOYCE E [employer] SCHO[employer] CHEMISTRY TEACHER Ot J44.9 CHRONIC OBSTRUCTIVE PULMONARY DISEASE, U 07/29/2017 MALATHI, JOYCE E [employer] SCHO[employer] CHEMISTRY TEACHER Ot R06.02 SHORTNESS OF BREATH 07/30/2017 MALATHI JOYCE E [employer] SCHO[employer] CHEMISTRY TEACHER Ot J44.9 CHRONIC OBSTRUCTIVE PULMONARY DISEASE, U 07/30/2017 MALATHI, JOYCE E [employer] SCHO[employer] CHEMISTRY TEACHER Ot R06.02 SHORTNESS OF BREATH 09/04/2017 MALATHI JOYCE E [employer] SCHO[employer] CHEMISTRY TEACHER Ot J44.9 CHRONIC OBSTRUCTIVE PULMONARY DISEASE, U 09/04/2017 MALATHIGENAJOYCE E HIGH SCHOOL CHEMISTRY TEACHER Ot R06.02 SHORTNESS OF BREATH 10/27/2017 MALATHIGENAJOYCE Franky HIGH SCHOOL CHEMISTRY TEACHER Ot J44.9 CHRONIC OBSTRUCTIVE PULMONARY DISEASE, U 10/27/2017 MALATHIGENA CONNELLINE E [employer]IGH SCHO[employer] CHEMISTRY TEACHER Ot R06.02 SHORTNESS OF BREATH 05/20/2018 SARA MEDEL, TIN [place] Ot Z12.31 ENCNTR SCREEN MAMMOGRAM FOR MALIGNANT NE 05/20/2018 TIN RUIZ MD Ot Z12.31 ENCNTR SCREEN MAMMOGRAM FOR MALIGNANT NE 05/25/2018 TIN RUIZ MD Ot Z12.31 ENCNTR SCREEN MAMMOGRAM FOR MALIGNANT NE 07/10/2018 TIN RUIZ MD Ot M43.12 SPONDYLOLISTHESIS, CERVICAL REGION 07/10/2018 TIN RUIZ MD Ot M47.22 OTHER SPONDYLOSIS WITH RADICULOPATHY, CE 07/22/2018 TIN RUIZ MD Ot M43.12 SPONDYLOLISTHESIS, CERVICAL REGION 07/22/2018 TIN RUIZ MD Ot M47.22 OTHER SPONDYLOSIS WITH RADICULOPATHY, CE 11/24/2018 HENRIQUE MEDEL, NAMRATA Grant Ot E11.9 TYPE 2 DIABETES MELLITUS WITHOUT COMPLIC 11/24/2018 NAMRATA DUENAS MD Ot E87.6 HYPOKALEMIA 11/24/2018 NAMRATA DUENAS MD Ot G47.30 SLEEP APNEA, UNSPECIFIED 11/24/2018 NAMRATA DUENAS MD Ot I48.92 UNSPECIFIED ATRIAL FLUTTER 11/24/2018 NAMRATA DUENAS MD Ot J44.9 CHRONIC OBSTRUCTIVE PULMONARY DISEASE, U 11/24/2018 NAMRATA DUENAS MD Ot R00.0 TACHYCARDIA, UNSPECIFIED 11/24/2018 NAMRATA DUENAS MD Ot Z79.01 [facility] (CURRENT) USE OF ANTICOAGULANT 11/24/2018 NAMRATA DUENAS MD Ot Z87.891 PERSONAL HISTORY OF NICOTINE DEPENDENCE 11/24/2018 NAMRATA DUENAS MD Ot Z88.5 ALLERGY STATUS TO NARCOTIC AGENT STATUS 11/24/2018 NAMRATA DUENAS MD Ot Z90.710 ACQUIRED ABSENCE OF BOTH CERVIX AND UTER 11/24/2018 NAMRATA DUENAS MD Ot Z98.890 OTHER SPECIFIED POSTPROCEDURAL STATES 11/26/2018 NAMRATA DUENAS MD, Ot E11.9 TYPE 2 DIABETES MELLITUS WITHOUT COMPLIC 11/26/2018 NAMRATA DUENAS MD Ot E87.6 HYPOKALEMIA 11/26/2018 NAMRATA DUENAS MD Ot G47.30 SLEEP APNEA, UNSPECIFIED 11/26/2018 NAMRATA DUENAS MD Ot I48.92 UNSPECIFIED ATRIAL FLUTTER 11/26/2018 NAMRATA DUENAS MD, Ot J44.9 CHRONIC OBSTRUCTIVE PULMONARY DISEASE, U 11/26/2018 NAMRATA DUENAS MD Ot R00.0 TACHYCARDIA, UNSPECIFIED 11/26/2018 NAMRATA DUENAS MD Ot Z79.01 [facility] (CURRENT) USE OF ANTICOAGULANT 11/26/2018 NAMRATA DUENAS MD Ot Z87.891 PERSONAL HISTORY OF NICOTINE DEPENDENCE 11/26/2018 NAMRATA DUENAS MD Ot Z88.5 ALLERGY STATUS TO NARCOTIC AGENT STATUS 11/26/2018 HENRIQUE MEDEL, NAMRATA Grant Ot Z90.710 ACQUIRED ABSENCE OF BOTH CERVIX AND UTER 11/26/2018 NAMRATA DUENAS MD Ot Z98.890 OTHER SPECIFIED POSTPROCEDURAL STATES 12/01/2018 NICHOLE MEDEL, BERT Segura Ot 719.47 JOINT PAIN-ANKLE 12/01/2018 NICHOLE MEDEL, BERT Segura Ot V15.59 PERSONAL HISTORY OF OTHER INJURY 12/01/2018 Ot V76.12 OT SCREEN MAMMO-MALIGN NEOPLASM OF MEHUL 12/01/2018 MALVIN QIU MINILAB OPERATOR Ot 784.2 SWELLING IN HEAD NECK 12/01/2018 MALVIN QIU MINILAB OPERATOR Ot 786.6 CHEST SWELLING/MASS/LUMP 12/01/2018 IFTIKHAR GUSMAN [employer] CHEMISTRY TEACHER Ot Z12.31 ENCNTR SCREEN MAMMOGRAM FOR MALIGNANT NE 12/01/2018 IFTIKHAR GUSMAN [employer] CHEMISTRY TEACHER Ot R06.02 SHORTNESS OF BREATH 12/01/2018 IFTIKHAR GUSMAN [employer] CHEMISTRY TEACHER Ot R06.02 SHORTNESS OF BREATH 12/01/2018 IFTIKHAR GUSMAN [employer] CHEMISTRY TEACHER Ot R07.89 OTHER CHEST PAIN 12/01/2018 IFTIKHAR GUSMAN [employer] CHEMISTRY TEACHER Ot R00.2 PALPITATIONS 12/01/2018 IFTIKHAR GUSMAN [employer] S[employer] CHEMISTRY TEACHER Ot R06.02 SHORTNESS OF BREATH 12/01/2018 MALVIN QIU MINILAB OPERATOR Ot R05 COUGH 12/01/2018 MALVIN QIU MINILAB OPERATOR Ot R06.00 DYSPNEA, UNSPECIFIED 12/01/2018 IFTIKHAR GUSMAN [employer] SCHO[employer] CHEMISTRY TEACHER Ot Z12.31 ENCNTR SCREEN MAMMOGRAM FOR MALIGNANT NE 12/01/2018 JOYCE SERVIN [employer]IGH SCHOOL CHEMISTRY TEACHER Ot J44.9 CHRONIC OBSTRUCTIVE PULMONARY DISEASE, U 12/01/2018 JOYCE SERVIN APRN Ot R06.02 SHORTNESS OF BREATH 12/01/2018 TIN RUIZ MD Ot Z12.31 ENCNTR SCREEN MAMMOGRAM FOR MALIGNANT NE 12/01/2018 TIN RUIZ MD Ot M43.12 SPONDYLOLISTHESIS, CERVICAL REGION 12/01/2018 TIN RUIZ MD Ot M47.22 OTHER SPONDYLOSIS WITH RADICULOPATHY, CE 12/03/2018 BENIGNO MEDEL, Imelda GREENE Ot I07.1 RHEUMATIC TRICUSPID INSUFFICIENCY 12/03/2018 Imelda PELAEZ MD Ot I48.3 TYPICAL ATRIAL FLUTTER 12/11/2018 Imelda PELAEZ MD Ot Z01.818 ENCOUNTER FOR OTHER PREPROCEDURAL EXAMIN 12/11/2018 Imelda PELAEZ MD Ot Z01.818 ENCOUNTER FOR OTHER PREPROCEDURAL EXAMIN 12/11/2018 Imelda PELAEZ MD Ot Z01.818 ENCOUNTER FOR OTHER PREPROCEDURAL EXAMIN 12/15/2018 Imelda PELAEZ MD Ot E11.9 TYPE 2 DIABETES MELLITUS WITHOUT COMPLIC 12/15/2018 Imelda PELAEZ MD Ot I48.3 TYPICAL ATRIAL FLUTTER 12/15/2018 Imelda PELAEZ MD Ot J44.9 CHRONIC OBSTRUCTIVE PULMONARY DISEASE, U 12/15/2018 Imelda PELAEZ MD Ot Z79.01 TRIAGE RN (CURRENT) USE OF ANTICOAGULANT 12/15/2018 Imelda PELAEZ MD Ot Z79.84 TRIAGE RN (CURRENT) USE OF ORAL HYPOGLYC 12/15/2018 Imelda PELAEZ MD Ot Z79.899 OTHER [facility] (CURRENT) DRUG THERAPY 12/15/2018 Imelda PELAEZ MD Ot Z87.891 PERSONAL HISTORY OF NICOTINE DEPENDENCE 12/17/2018 Imelda PELAEZ MD Ot E11.9 TYPE 2 DIABETES MELLITUS WITHOUT COMPLIC 12/17/2018 Imelda PELAEZ MD Ot I48.3 TYPICAL ATRIAL FLUTTER 12/17/2018 Imelda PELAEZ MD, Ot J44.9 CHRONIC OBSTRUCTIVE PULMONARY DISEASE, U 12/17/2018 Imelda PELAEZ MD Ot Z79.01 TRIAGE RN (CURRENT) USE OF ANTICOAGULANT 12/17/2018 Imelda PELAEZ MD Ot Z79.84 TRIAGE RN (CURRENT) USE OF ORAL HYPOGLYC 12/17/2018 Imelda PELAEZ MD Ot Z79.899 OTHER TRIAGE RN (CURRENT) DRUG THERAPY 12/17/2018 Imelda PELAEZ MD Ot Z87.891 PERSONAL HISTORY OF NICOTINE DEPENDENCE 12/17/2018 Imelda PELAEZ MD Ot E11.9 TYPE 2 DIABETES MELLITUS WITHOUT COMPLIC 12/17/2018 Imelda PELAEZ MD Ot I48.3 TYPICAL ATRIAL FLUTTER 12/17/2018 Imelda PELAEZ MD, Ot J44.9 CHRONIC OBSTRUCTIVE PULMONARY DISEASE, U 12/17/2018 Imelda PELAEZ MD, Ot Z79.01 TRIAGE RN (CURRENT) USE OF ANTICOAGULANT 12/17/2018 Imelda PELAEZ MD Ot Z79.84 TRIAGE RN (CURRENT) USE OF ORAL HYPOGLYC 12/17/2018 Imelda PELAEZ MD, Ot Z79.899 OTHER [facility] (CURRENT) DRUG THERAPY 12/17/2018 Imelda PELAEZ MD, Ot Z87.891 PERSONAL HISTORY OF NICOTINE DEPENDENCE 12/18/2018 Imelda PELAEZ MD Ot I07.1 RHEUMATIC TRICUSPID INSUFFICIENCY 12/18/2018 Imelda PELAEZ MD, Ot I48.3 TYPICAL ATRIAL FLUTTER Procedures There is no data. Results Test Result Range Comprehensive metabolic panel - 01/29/17 17:20 Serum or plasma sodium measurement (moles/volume) 139 mmol/L 135-145 Serum or plasma potassium measurement (moles/volume) 3.2 mmol/L 3.6-5.0 Serum or plasma chloride measurement (moles/volume) 97 mmol/L 98-107 Carbon dioxide 26 mmol/L 21-32 Serum or plasma anion gap determination (moles/volume) 16 mmol/L 5-14 Serum or plasma urea nitrogen measurement (mass/volume) 18 mg/dL 7-18 Serum or plasma creatinine measurement (mass/volume) 0.95 mg/dL 0.60-1.30 Serum or plasma urea nitrogen/creatinine mass ratio 19 NRG Serum or plasma creatinine measurement with calculation of estimated glomerular filtration rate 60 NRG Serum or plasma glucose measurement (mass/volume) 178 mg/dL 70-105 Serum or plasma calcium measurement (mass/volume) 9.8 mg/dL 8.5-10.1 Serum or plasma total bilirubin measurement (mass/volume) 0.4 mg/dL 0.1-1.0 Serum or plasma alkaline phosphatase measurement (enzymatic activity/volume) 114 U/L 40-136 Serum or plasma aspartate aminotransferase measurement (enzymatic activity/ volume) 14 U/L 5-34 Serum or plasma alanine aminotransferase measurement (enzymatic activity/volume ) 24 U/L 0-55 Serum or plasma protein measurement (mass/volume) 8.0 g/dL 6.4-8.2 Serum or plasma albumin measurement (mass/volume) 4.5 g/dL 3.2-4.5 Blood CBC with ordered manual differential panel - 01/31/17 12:10 Blood leukocytes automated count (number/volume) 10.1 10*3/uL 4.3-11.0 Blood erythrocytes automated count (number/volume) 5.13 10*6/uL 4.35-5.85 Venous blood hemoglobin measurement (mass/volume) 15.4 g/dL 11.5-16.0 Blood hematocrit (volume fraction) 45 % 35-52 Automated erythrocyte mean corpuscular volume 87 [foz_us] 80-99 Automated erythrocyte mean corpuscular hemoglobin (mass per erythrocyte) 30 pg 25-34 Automated erythrocyte mean corpuscular hemoglobin concentration measurement ( mass/volume) 35 g/dL 32-36 Automated erythrocyte distribution width ratio 13.3 % 10.0-14.5 Automated blood platelet count (count/volume) 337 10*3/uL 130-400 Automated blood platelet mean volume measurement 10.4 [foz_us] 7.4-10.4 Automated blood neutrophils/100 leukocytes 60 % 42-75 Automated blood lymphocytes/100 leukocytes 30 % 12-44 Blood monocytes/100 leukocytes 5 % NRG Automated blood eosinophils/100 leukocytes 2 % 0-10 Automated blood basophils/100 leukocytes 1 % 0-10 Blood neutrophils automated count (number/volume) 6.1 10*3 1.8-7.8 Blood lymphocytes automated count (number/volume) 3.0 10*3 1.0-4.0 Blood monocytes automated count (number/volume) 0.7 10*3 0.0-1.0 Automated eosinophil count 0.2 10*3/uL 0.0-0.3 Automated blood basophil count (count/volume) 0.1 10*3/uL 0.0-0.1 Manual blood segmented neutrophils/100 leukocytes 57 % NRG Blood band neutrophils/100 leukocytes 0 % NRG Manual blood lymphocytes/100 leukocytes 35 % NRG Manual eosinophils/100 leukocytes in nose 2 % NRG Manual blood basophils/100 leukocytes 0 % NRG Blood lymphocytes variant/100 leukocytes 1 % NRG Blood erythrocyte morphology finding identification NORMAL NRG Erythrocyte sedimentation rate by westergren method - 01/31/17 12:10 Erythrocyte sedimentation rate by westergren method 4 mm 0-30 Comprehensive metabolic panel - 01/31/17 12:10 Serum or plasma sodium measurement (moles/volume) 137 mmol/L 135-145 Serum or plasma potassium measurement (moles/volume) 3.7 mmol/L 3.6-5.0 Serum or plasma chloride measurement (moles/volume) 97 mmol/L 98-107 Carbon dioxide 30 mmol/L 21-32 Serum or plasma anion gap determination (moles/volume) 10 mmol/L 5-14 Serum or plasma urea nitrogen measurement (mass/volume) 20 mg/dL 7-18 Serum or plasma creatinine measurement (mass/volume) 1.14 mg/dL 0.60-1.30 Serum or plasma urea nitrogen/creatinine mass ratio 18 NRG Serum or plasma creatinine measurement with calculation of estimated glomerular filtration rate 49 NRG Serum or plasma glucose measurement (mass/volume) 137 mg/dL 70-105 Serum or plasma calcium measurement (mass/volume) 9.2 mg/dL 8.5-10.1 Serum or plasma total bilirubin measurement (mass/volume) 0.5 mg/dL 0.1-1.0 Serum or plasma alkaline phosphatase measurement (enzymatic activity/volume) 113 U/L 40-136 Serum or plasma aspartate aminotransferase measurement (enzymatic activity/ volume) 18 U/L 5-34 Serum or plasma alanine aminotransferase measurement (enzymatic activity/volume ) 25 U/L 0-55 Serum or plasma protein measurement (mass/volume) 6.8 g/dL 6.4-8.2 Serum or plasma albumin measurement (mass/volume) 3.9 g/dL 3.2-4.5 Serum or plasma troponin i.cardiac measurement (mass/volume) - 01/31/17 12:10 Serum or plasma troponin i.cardiac measurement (mass/volume) < ng/ mL <0.30 THYROID STIMULATING HORMONE - 01/31/17 12:10 THYROID STIMULATING HORMONE 2.50 u[iU]/mL 0.35-4.94 Serum or plasma C reactive protein measurement (mass/volume) - 01/31/17 12:10 Serum or plasma C reactive protein measurement (mass/volume) 0.31 mg /dL 0.00-0.50 Sputum Gram stain - 03/20/17 07:15 GRAM STAIN SPUTUM AND MIXED BACTERIAL SANDY NR Bacterial sputum culture - 03/20/17 07:15 Bacterial sputum culture NORMAL [facility] Complete blood count (CBC) with automated white blood cell (WBC) differential - 11/24/18 16:59 Blood leukocytes automated count (number/volume) 10.0 10*3/uL 4.3-11.0 Blood erythrocytes automated count (number/volume) 5.06 10*6/uL 4.35-5.85 Venous blood hemoglobin measurement (mass/volume) 14.9 g/dL 11.5-16.0 Blood hematocrit (volume fraction) 44 % 35-52 Automated erythrocyte mean corpuscular volume 87 [foz_us] 80-99 Automated erythrocyte mean corpuscular hemoglobin (mass per erythrocyte) 29 pg 25-34 Automated erythrocyte mean corpuscular hemoglobin concentration measurement ( mass/volume) 34 g/dL 32-36 Automated erythrocyte distribution width ratio 13.4 % 10.0-14.5 Automated blood platelet count (count/volume) 297 10*3/uL 130-400 Automated blood platelet mean volume measurement 10.9 [foz_us] 7.4-10.4 Automated blood neutrophils/100 leukocytes 59 % 42-75 Automated blood lymphocytes/100 leukocytes 32 % 12-44 Blood monocytes/100 leukocytes 7 % 0-12 Automated blood eosinophils/100 leukocytes 2 % 0-10 Automated blood basophils/100 leukocytes 1 % 0-10 Blood neutrophils automated count (number/volume) 5.9 10*3 1.8-7.8 Blood lymphocytes automated count (number/volume) 3.2 10*3 1.0-4.0 Blood monocytes automated count (number/volume) 0.7 10*3 0.0-1.0 Automated eosinophil count 0.2 10*3/uL 0.0-0.3 Automated blood basophil count (count/volume) 0.1 10*3/uL 0.0-0.1 Comprehensive metabolic panel - 11/24/18 16:59 Serum or plasma sodium measurement (moles/volume) 139 mmol/L 135-145 Serum or plasma potassium measurement (moles/volume) 3.2 mmol/L 3.6-5.0 Serum or plasma chloride measurement (moles/volume) 98 mmol/L 98-107 Carbon dioxide 25 mmol/L 21-32 Serum or plasma anion gap determination (moles/volume) 16 mmol/L 5-14 Serum or plasma urea nitrogen measurement (mass/volume) 15 mg/dL 7-18 Serum or plasma creatinine measurement (mass/volume) 0.89 mg/dL 0.60-1.30 Serum or plasma urea nitrogen/creatinine mass ratio 17 NRG Serum or plasma creatinine measurement with calculation of estimated glomerular filtration rate > NRG Serum or plasma glucose measurement (mass/volume) 124 mg/dL 70-105 Serum or plasma calcium measurement (mass/volume) 10.0 mg/dL 8.5-10.1 Serum or plasma total bilirubin measurement (mass/volume) 0.5 mg/dL 0.1-1.0 Serum or plasma alkaline phosphatase measurement (enzymatic activity/volume) 101 U/L 40-136 Serum or plasma aspartate aminotransferase measurement (enzymatic activity/ volume) 39 U/L 5-34 Serum or plasma alanine aminotransferase measurement (enzymatic activity/volume ) 59 U/L 0-55 Serum or plasma protein measurement (mass/volume) 7.6 g/dL 6.4-8.2 Serum or plasma albumin measurement (mass/volume) 4.3 g/dL 3.2-4.5 CALCIUM CORRECTED 9.8 mg/dL 8.5-10.1 Magnesium - 11/24/18 16:59 Magnesium 1.9 mg/dL 1.8-2.4 PT panel in platelet poor plasma by coagulation assay - 11/24/18 16:59 Prothrombin time (PT) in platelet poor plasma by coagulation assay 12.0 s 12.2-14.7 INR in platelet poor plasma or blood by coagulation assay 0.9 0.8-1.4 Activated partial thromboplastin time (aPTT) in platelet poor plasma bycoagulation assay - 11/24/18 16:59 Activated partial thromboplastin time (aPTT) in platelet poor plasma bycoagulation assay 27 s 24-35 Serum or plasma troponin i.cardiac measurement (mass/volume) - 11/24/18 16:59 Serum or plasma troponin i.cardiac measurement (mass/volume) < ng/ mL <0.028 Myoglobin, serum - 11/24/18 16:59 Myoglobin, serum 33.5 ng/mL 10.0-92.0 Serum or plasma thyrotropin measurement by detection limit <=0.05 miu/l (units/ volume) - 11/24/18 16:59 Serum or plasma thyrotropin measurement by detection limit <=0.05 miu/l (units/ volume) 2.02 u[iU]/mL 0.35-4.94 Fibrin D-dimer FEU measurement in platelet poor plasma (mass/volume) - 16:59 Fibrin D-dimer FEU measurement in platelet poor plasma (mass/volume) 0.52 ug/mL 0.00-0.49 Automated blood complete blood count (hemogram) panel - 12/14/18 06:42 Blood leukocytes automated count (number/volume) 8.0 10*3/uL 4.3-11.0 Blood erythrocytes automated count (number/volume) 4.85 10*6/uL 4.35-5.85 Venous blood hemoglobin measurement (mass/volume) 14.4 g/dL 11.5-16.0 Blood hematocrit (volume fraction) 42 % 35-52 Automated erythrocyte mean corpuscular volume 86 [foz_us] 80-99 Automated erythrocyte mean corpuscular hemoglobin (mass per erythrocyte) 30 pg 25-34 Automated erythrocyte mean corpuscular hemoglobin concentration measurement ( mass/volume) 34 g/dL 32-36 Automated erythrocyte distribution width ratio 13.2 % 10.0-14.5 Automated blood platelet count (count/volume) 406 10*3/uL 130-400 Automated blood platelet mean volume measurement 10.2 [foz_us] 7.4-10.4 Comprehensive metabolic panel - 12/14/18 06:42 Serum or plasma sodium measurement (moles/volume) 140 mmol/L 135-145 Serum or plasma potassium measurement (moles/volume) 3.2 mmol/L 3.6-5.0 Serum or plasma chloride measurement (moles/volume) 100 mmol/L 98-107 Carbon dioxide 29 mmol/L 21-32 Serum or plasma anion gap determination (moles/volume) 11 mmol/L 5-14 Serum or plasma urea nitrogen measurement (mass/volume) 15 mg/dL 7-18 Serum or plasma creatinine measurement (mass/volume) 0.87 mg/dL 0.60-1.30 Serum or plasma urea nitrogen/creatinine mass ratio 17 NRG Serum or plasma creatinine measurement with calculation of estimated glomerular filtration rate > NRG Serum or plasma glucose measurement (mass/volume) 150 mg/dL 70-105 Serum or plasma calcium measurement (mass/volume) 9.8 mg/dL 8.5-10.1 Serum or plasma total bilirubin measurement (mass/volume) 0.4 mg/dL 0.1-1.0 Serum or plasma alkaline phosphatase measurement (enzymatic activity/volume) 98 U/L 40-136 Serum or plasma aspartate aminotransferase measurement (enzymatic activity/ volume) 30 U/L 5-34 Serum or plasma alanine aminotransferase measurement (enzymatic activity/volume ) 45 U/L 0-55 Serum or plasma protein measurement (mass/volume) 7.2 g/dL 6.4-8.2 Serum or plasma albumin measurement (mass/volume) 4.1 g/dL 3.2-4.5 CALCIUM CORRECTED 9.7 mg/dL 8.5-10.1 PT panel in platelet poor plasma by coagulation assay - 12/14/18 06:42 Prothrombin time (PT) in platelet poor plasma by coagulation assay 12.3 s 12.2-14.7 INR in platelet poor plasma or blood by coagulation assay 0.9 0.8-1.4 Activated partial thromboplastin time (aPTT) in platelet poor plasma bycoagulation assay - 12/14/18 06:42 Activated partial thromboplastin time (aPTT) in platelet poor plasma bycoagulation assay 29 s 24-35 Methicillin resistant Staphylococcus aureus (MRSA) screening culture - 06:42 Methicillin resistant Staphylococcus aureus (MRSA) screening culture NEG NRG Capillary blood glucose measurement by glucometer (mass/volume) - 12/14/18 11: 27 Capillary blood glucose measurement by glucometer (mass/volume) 118 mg/dL 70-110 Automated blood complete blood count (hemogram) panel - 12/15/18 04:10 Blood leukocytes automated count (number/volume) 8.3 10*3/uL 4.3-11.0 Blood erythrocytes automated count (number/volume) 4.42 10*6/uL 4.35-5.85 Venous blood hemoglobin measurement (mass/volume) 13.4 g/dL 11.5-16.0 Blood hematocrit (volume fraction) 39 % 35-52 Automated erythrocyte mean corpuscular volume 88 [foz_us] 80-99 Automated erythrocyte mean corpuscular hemoglobin (mass per erythrocyte) 30 pg 25-34 Automated erythrocyte mean corpuscular hemoglobin concentration measurement ( mass/volume) 34 g/dL 32-36 Automated erythrocyte distribution width ratio 13.4 % 10.0-14.5 Automated blood platelet count (count/volume) 338 10*3/uL 130-400 Automated blood platelet mean volume measurement 10.2 [foz_us] 7.4-10.4 Whole blood basic metabolic panel - 12/15/18 04:10 Serum or plasma sodium measurement (moles/volume) 141 mmol/L 135-145 Serum or plasma potassium measurement (moles/volume) 3.6 mmol/L 3.6-5.0 Serum or plasma chloride measurement (moles/volume) 103 mmol/L 98-107 Carbon dioxide 26 mmol/L 21-32 Serum or plasma anion gap determination (moles/volume) 12 mmol/L 5-14 Serum or plasma urea nitrogen measurement (mass/volume) 10 mg/dL 7-18 Serum or plasma creatinine measurement (mass/volume) 0.81 mg/dL 0.60-1.30 Serum or plasma urea nitrogen/creatinine mass ratio 12 NRG Serum or plasma creatinine measurement with calculation of estimated glomerular filtration rate > NRG Serum or plasma glucose measurement (mass/volume) 152 mg/dL 70-105 Serum or plasma calcium measurement (mass/volume) 9.1 mg/dL 8.5-10.1 Encounters ACCT No. Visit Date/Time Discharge Status Pt. Type Provider Facility Loc./Unit Complaint [id number] 08/26/2012 10:47:00 08/26/2012 23:59:59 CLS Outpatient [id number] 05/13/2017 08:49:20 05/13/2017 23:59:59 CLS Outpatient [id number] 12/15/2018 10:24:00 12/15/2018 23:59:59 CLS Outpatient Imelda PELAEZ MD [facility] CARD PAF [id number] 12/14/2018 05:51:00 12/15/2018 10:14:00 DIS Outpatient Imelda PELAEZ MD [facility] CATH TYPICAL ATRIAL FLUTTER [id number] 12/11/2018 10:30:00 12/11/2018 11:03:00 DIS Outpatient Imelda PELAEZ MD [facility] PREOP RIGHT EP STUDY [id number] 12/02/2018 09:26:00 12/02/2018 23:59:59 CLS Outpatient Imelda PELAEZ MD [facility] CARD TYPICAL ATRIAL FLUTTER [id number] 11/24/2018 16:41:00 11/24/2018 19:15:00 DIS Emergency HENRIQUE MEDEL, NAMRATA Grant [facility] ER HEART RACING [id number] 07/09/2018 10:59:00 07/09/2018 23:59:59 CLS Outpatient TIN RUIZ MD [facility] RAD LOWER NECK,UPPER BACK PAIN [id number] 05/19/2018 12:15:00 05/19/2018 23:59:59 CLS Outpatient TIN RUIZ MD [facility] RAD SCREENING [id number] 10/28/2017 10:15:00 10/28/2017 23:59:59 CLS Preadmit JOYCE SERVIN APRN [facility] PUL COPD J44.9 [id number] 07/29/2017 12:27:00 10/27/2017 00:01:00 DIS Outpatient JOYCE SERVIN [employer]MI[employer] [facility] PUL COPD J44.9 [id number] 07/24/2017 14:30:00 07/26/2017 00:01:00 DIS Outpatient JOYCE SERVIN [employer]MI[employer] [facility] PUL COPD J44.9 [id number] 05/26/2017 09:30:00 05/26/2017 09:45:00 DIS Outpatient JOYCE SERVIN [employer]MI[employer] [facility] SLEEP SLEEP DISORDER G47.9 [id number] 05/14/2017 08:40:00 05/14/2017 23:59:59 CLS Outpatient IFTIKHAR GUSMAN APRN [facility] RAD SCREENING Z12.31 [id number] 04/02/2017 12:30:00 04/02/2017 23:59:59 CLS Outpatient MALVIN QIU [facility] RT COUGH,DYSPNEA [id number] 03/20/2017 08:08:00 03/20/2017 08:26:00 DIS Outpatient IFTIKHAR GUSMAN [employer] [facility] LAB COUGH,DYSPNEA, PALPITATION [id number] 02/19/2017 13:28:00 02/19/2017 23:59:59 CLS Outpatient IFTIKHAR GUSMAN [employer] [facility] CARD COUGH,DYSPNEA, PALPITATION [id number] 01/31/2017 11:55:00 01/31/2017 23:59:59 CLS Outpatient IFTIKHAR GUSMAN [employer] [facility] LAB CHEST TIGHTNESS,SOB [id number] 01/29/2017 17:02:00 01/29/2017 23:59:59 CLS Outpatient IFTIKHAR GUSMAN [employer] [facility] RAD SOB [id number] 04/12/2016 10:22:00 04/12/2016 23:59:59 CLS Outpatient IFTIKHAR GUSMAN KYLE [facility] RAD SCREENING [id number] 04/19/2015 11:47:00 04/19/2015 23:59:59 CLS Outpatient MALVIN QIU MINILAB OPERATOR [facility] RAD RT SIDED NECK SWELLING [id number] 08/09/2013 09:40:00 08/09/2013 23:59:59 CLS Outpatient BERT VARELA MD [facility] RAD HX ANKLE SPRAIN,FOOT PAIN [id number] 01/28/2019 09:30:00 PEN Preadmit Imelda PELAEZ MD [facility] CATH PAF [id number] 04/19/2015 11:46:00 Document Registration [id number] 04/19/2015 11:46:00 Document Registration [id number] 05/02/2014 09:47:00 Document Registration [id number] 05/01/2012 07:31:00 Document Registration [id number] 04/30/2012 07:18:00 Document Registration [id number] 03/03/2012 07:24:00 Document Registration [id number] 05/16/2010 14:43:00 Document Registration
[2019-01-28 08:35] VITALS: BP 167/83
--- NOTE | 2019-01-28 10:52 | Implantation of Loop Monitor ---
Implant of Loop Monitior PROCEDURE PHYSICIAN: Estefani Hensley MD IMPLANTATION OF LOOP MONITOR REPORT DATE OF PROCEDURE: 01/28/19 ATTENDING PHYSICIAN: Dr. Joseph Hensley. PERFORMING PHYSICIAN: Dr. Joseph Hensley. INDICATION: Long-term surveillance of atrial fibrillation PREOP DIAGNOSIS: Long-term surveillance of atrial fibrillation POSTOP DIAGNOSIS: PAF, s/p implantation of loop recorder. PROCEDURE DETAILS: The patient is a 58 female with history of paroxysmal atrial fibrillation requiring long-term surveillance. Therefore implantable loop recorder was discussed and agreed with the patient. Informed consent was taken. All risks and complications were discussed at length. The patient was draped and prepped in the usual sterile fashion. Local anesthesia was lidocaine, which was given in the substernal area close to the 4th intercostal space. Loop monitor was implanted according to the protocol. Steri-Strips were placed at the end of the procedure. There were no complications and the patient tolerated the procedure well. The device was interrogated with a voltage of 0.44mv. ANESTHESIA: Local anesthesia with lidocaine. COMPLICATIONS: None CONTRAST/FLUOROSCOPY: None CONCLUSION: 1. 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 2. No complication and the patient tolerated the procedure well. Estefani Hensley MD, RS, CCDS Cardiac Electrophysiology Imelda HENSLEY MD Jan 28, 2019 10:52 am
== END 2019-01-28 09:51 | disposition home or self-care (01) ==
LOC: CATH 08:21
PROVIDERS: ATTEND Internal Medicine Interventional Cardiology
DX: I48.0 Paroxysmal atrial fibrillation (principal); I10 Essential (primary) hypertension; Z79.01 Long term (current) use of anticoagulants; Z79.899 Other long term (current) drug therapy; Z87.891 Personal history of nicotine dependence
CPT/HCPCS: 33285

== ENCOUNTER → 2019-03-24 | Outpatient (CLI) | payer BC ==
[~2019-03-24] MED LIST changes: +RT-ALBUTEROL SULF 2.5 MG/3 ML PRE-MIX VIAL INH SCH
== END ==
LOC: RT 08:10
PROVIDERS: ATTEND Nurse Practitioner Family
DX: J44.9 Chronic obstructive pulmonary disease, unspecified (principal); R06.02 Shortness of breath; L30.9 Dermatitis, unspecified; F17.201 Nicotine dependence, unspecified, in remission
CPT/HCPCS: 94060; 94640; 94726; 94729

== ENCOUNTER → 2019-06-01 | Outpatient (CLI) | payer BC ==
[~2019-06-01] MED LIST changes: -RT-ALBUTEROL SULF 2.5 MG/3 ML PRE-MIX VIAL INH SCH
--- NOTE | 2019-06-01 14:58 | Diagnostic Imaging Report ---
INDICATION: Routine screening. COMPARISON: 05/19/2018 and 05/14/2017. TECHNIQUE: 2D and 3D bilateral screening mammography was performed with CAD. FINDINGS: Scattered fibroglandular densities are identified bilaterally. The circumscribed ovoid nodular density in the outer left breast is stable. No new mass or malignant appearing microcalcifications are seen. There are occasional benign calcifications. The axillae are unremarkable. IMPRESSION: No mammographic features suspicious for malignancy are identified. ACR BI-RADS Category 2: Benign findings. Result letter will be mailed to the patient. Note: At least 10% of breast cancer is not imaged by mammography. Dictated by: Dictated on workstation # [id number]
== END ==
LOC: RAD 09:57
PROVIDERS: ATTEND Family Medicine
DX: Z12.31 Encounter for screening mammogram for malignant neoplasm of breast (principal)
CPT/HCPCS: 77067

== ENCOUNTER 2019-07-13 05:40 | Outpatient (CLI) | payer BC ==
[~2019-07-13] VITALS: Ht 165 cm; Wt 98.6 kg
[2019-07-13] MEDS ORDERED: RIVA10TA PO (14:33)
== END 2019-07-13 14:53 | disposition home or self-care (01) ==
LOC: PREOP 05:40
PROVIDERS: ATTEND Surgery
DX: Z01.818 Encounter for other preprocedural examination (principal)

== ENCOUNTER 2019-07-20 09:41 | Day surgery (SDC) | payer BC ==
[~2019-07-20] VITALS: Ht 165 cm; Wt 98.6 kg
[~2019-07-20 09:41] MED LIST changes: +LACTATED RINGERS 1,000 ML IV ONE; +RIVA10TA PO
[2019-07-20] MEDS ORDERED: LACTATED RINGERS 1,000 ML IV STA (09:47)
[2019-07-20] MEDS ORDERED: MIDAZOLAM 2 MG/2 ML (VERSED) VIAL ONE (09:51)
[2019-07-20] MEDS ORDERED: proPOfol 200 MG/20 ML (DIPRIVAN) VIAL IV ONE (09:51)
[2019-07-20 10:01] VITALS: BP 140/81
--- NOTE | 2019-07-20 10:03 | Progress Note-Pre Operative ---
Pre-Operative Progress Note H&P Reviewed The H&P was reviewed, patient examined and no changes noted. Date Seen by Provider: Jul 20, 2019 Time Seen by Provider: 10:03 Date H&P Reviewed: Jul 20, 2019 Time H&P Reviewed: 10:03 Pre-Operative Diagnosis: screening colonoscopy MARCELO CARRANZA DO Jul 20, 2019 10:03
[2019-07-20 10:40] VITALS: BP 114/55
[2019-07-20 10:45] VITALS: BP 110/55
--- NOTE | 2019-07-20 10:46 | Progress Note-Post Operative ---
Post-Operative Progess Note Surgeon (s)/Biztalk Developer (s) Surgeon MARCELO CARRANZA DO Biztalk Developer: na Pre-Operative Diagnosis screening colonoscopy Post-Operative Diagnosis colon polyps Procedure & Operative Findings Date of Procedure 07/20/19 Procedure Performed/Findings colonoscopy c hot bx polypectomy x 4 Anesthesia Type per mda Estimated Blood Loss Estimated blood loss (mL): none Specimens/Packing Specimens Removed colon polyps MARCELO CARRANZA DO Jul 20, 2019 10:46
[2019-07-20 10:50] VITALS: BP 110/55
--- NOTE | 2019-07-20 10:50 | Discharge Inst-Simple/Standard ---
Discharge Inst-Standard Patient Instructions/Follow Up Plan of Care/Instructions/FU: 2 weeks Yara Activity as Tolerated: Yes Discharge Diet: Regular Diet MARCELO CARRANZA DO Jul 20, 2019 10:50
[2019-07-20 11:50] VITALS: BP 123/71
--- NOTE | 2019-07-20 15:15 | Anesthesia-General Post-Op ---
MAC Patient Condition Mental Status/LOC: Same as Preop Cardiovascular: Satisfactory Nausea/Vomiting: Absent Respiratory: Satisfactory Pain: Controlled Complications: Absent Post Op Complications Complications None Follow Up Care/Instructions Patient Instructions None needed. Anesthesiology Discharge Order Discharge Order Patient is doing well, no complaints, stable vital signs, no apparent adverse anesthesia problems. No complications reported per nursing. МАРИЯ RIVERA CRNA Jul 20, 2019 15:15
--- NOTE | 2019-07-20 16:16 | OPERATIVE REPORT ---
DATE OF SERVICE: 07/20/2019 PREOPERATIVE DIAGNOSIS: Screening colonoscopy. POSTOPERATIVE DIAGNOSIS: Colon polyps. PROCEDURES PERFORMED: Colonoscopy with hot biopsy polypectomy x4. SURGEON: Marcelo Livingston DO ANESTHESIA: Per MDA. ESTIMATED BLOOD LOSS: None. COMPLICATIONS: None. INDICATIONS: The patient is a 58-year-old female due for screening colonoscopy. She understands risks and benefits of procedure and wished to proceed with procedure. Consent was signed in the chart. DESCRIPTION OF PROCEDURE: The patient was taken to the endoscopy suite, placed in left lateral recumbent position. Timeout was performed. Digital rectal exam was performed. There were no palpable polyps, masses or ulcerations. Scope was inserted in the rectum, advanced all the way to the cecum with minimal difficulty. The prep was adequate. The terminal ileum was intubated. No abnormality. Scope was withdrawn back into the colon. There were no polyps, masses or ulcerations within the cecum. There is a small polyp in the ascending colon, which hot biopsy polypectomy was performed. Scope was continuously retracted back. At the hepatic flexure, small polyp was present, which hot biopsy polypectomy was performed. Continued withdrawal of the scope through the hepatic flexure, there were 2 small polyps, which hot biopsy polypectomy was performed. Scope was continuously retracted back through the transverse, descending and sigmoid colon without noting any polyps, masses or ulcerations. Once in the rectum, scope was retroflexed noting no other pathology. Scope was returned to its normal position, slowly withdrawn until completely removed. The patient tolerated procedure well without any complications. She was taken to recovery room in stable condition. RECOMMENDATIONS: The patient will need repeat colonoscopy in 5 years. Any issues before that be seen at that time. The patient will follow up in the office in 2 weeks to discuss pathology results. Job ID: [id number] DocumentID: [id number] Dictated Date: 07/20/2019 10:54:53 Poultry Cleaner Date: 07/20/2019 16:14:57 Dictated By: MARCELO LIVINGSTON DO [facility]
== END 2019-07-20 11:50 | disposition home or self-care (01) ==
LOC: ENDO 09:41
PROVIDERS: ATTEND Surgery
DX: Z12.11 Encounter for screening for malignant neoplasm of colon (principal); D12.4 Benign neoplasm of descending colon; D12.3 Benign neoplasm of transverse colon; E11.9 Type 2 diabetes mellitus without complications; J44.9 Chronic obstructive pulmonary disease, unspecified; J30.9 Allergic rhinitis, unspecified; I10 Essential (primary) hypertension; G73.3 Myasthenic syndromes in other diseases classified elsewhere; Z80.0 Family history of malignant neoplasm of digestive organs; I48.3 Typical atrial flutter; M19.91 Primary osteoarthritis, unspecified site; Z79.01 Long term (current) use of anticoagulants; Z79.899 Other long term (current) drug therapy; Z79.84 Long term (current) use of oral hypoglycemic drugs; Z87.891 Personal history of nicotine dependence; Z88.5 Allergy status to narcotic agent
CPT/HCPCS: 88305

== ENCOUNTER → 2019-09-16 | Outpatient (CLI) | payer BC ==
[~2019-09-16] VITALS: Ht 165 cm; Wt 99.0 kg
[~2019-09-16] MED LIST changes: +CATHETER FLUSH 10 ML SYR IV PRN; -LACTATED RINGERS 1,000 ML IV ONE; +REGADENOSON 0.4 MG/5 ML SYR (LEXISCAN) IV ONE
[2019-09-16 09:23] VITALS: BP 141/70
== END ==
LOC: CARD 08:03
PROVIDERS: ATTEND Internal Medicine Interventional Cardiology
DX: I10 Essential (primary) hypertension (principal); I48.0 Paroxysmal atrial fibrillation; I48.3 Typical atrial flutter
CPT/HCPCS: 78452; 93017

== ENCOUNTER → 2020-06-06 | Outpatient (CLI) | payer BC ==
[~2020-06-06] MED LIST changes: -CATHETER FLUSH 10 ML SYR IV PRN; -MONT10TA24 PO; +MONT10TA26 PO; -REGADENOSON 0.4 MG/5 ML SYR (LEXISCAN) IV ONE
--- NOTE | 2020-06-06 12:38 | Diagnostic Imaging Report ---
INDICATION: Routine screening. COMPARISON: 06/01/2019 and 05/19/2018. TECHNIQUE: 2D and 3D bilateral screening mammography was performed with CAD. FINDINGS: Scattered fibroglandular densities are identified bilaterally. The parenchymal pattern is stable. Density in the outer left breast is stable. No new mass or malignant appearing microcalcifications are seen. There are benign calcifications present. The axillae are unremarkable. IMPRESSION: No mammographic features suspicious for malignancy are identified. ACR BI-RADS Category 2: Benign findings. Result letter will be mailed to the patient. Note: At least 10% of breast cancer is not imaged by mammography. Dictated by: Dictated on workstation # [id number]
== END ==
LOC: RAD 08:59
PROVIDERS: ATTEND Family Medicine
DX: Z12.31 Encounter for screening mammogram for malignant neoplasm of breast (principal)
CPT/HCPCS: 77063; 77067

== ENCOUNTER → 2020-08-01 | Outpatient (CLI) | payer BC ==
--- NOTE | 2020-08-01 15:58 | Diagnostic Imaging Report ---
PROCEDURE: CT abdomen and pelvis without contrast. TECHNIQUE: Multiple contiguous axial images were obtained through the abdomen and pelvis without the use of intravenous contrast. Auto Exposure Controls were utilized during the CT exam to meet ALARA standards for radiation dose reduction. INDICATION: Bulge in the upper abdomen as well as nausea. COMPARISON: No prior studies are available for comparison. FINDINGS: The lung bases are clear. No discrete liver mass is identified. There does appear to be hepatic steatosis present. The gallbladder is unremarkable. No biliary ductal dilatation is seen. The pancreas and spleen are unremarkable. No adrenal mass is detected. The kidneys are unremarkable. No calculus or hydronephrosis is detected. The aorta is partially calcified but nonaneurysmal. The small and large bowel loops are of normal caliber. There is no obstruction. There is moderate stool in the sigmoid colon. No abdominal wall defect or hernia is seen apart from a very tiny fat-containing umbilical hernia. There is no free fluid or fluid collection. No inflammatory changes are seen. The bladder is decompressed. No central retroperitoneal or mesenteric lymphadenopathy is seen. No definite iliac or inguinal lymphadenopathy is detected. IMPRESSION: Essentially unremarkable noncontrast CT apart from hepatic steatosis and moderate stool in the colon. No acute feature is detected. Dictated by: Dictated on workstation # [id number]
== END ==
LOC: RAD 15:15
PROVIDERS: ATTEND Surgery
DX: K76.0 Fatty (change of) liver, not elsewhere classified (principal); R19.09 Other intra-abdominal and pelvic swelling, mass and lump
CPT/HCPCS: 74176

== ENCOUNTER → 2021-02-13 | Outpatient (CLI) | payer BC ==
[~2021-02-13] MED LIST changes: +GLBR5T PO; -GLYB5TAB6 PO; -HYDR50TA3 PO; +HYDR50TA6 PO; -MONT10TA26 PO; +MONT10TA32 PO
--- NOTE | 2021-02-13 15:32 | Diagnostic Imaging Report ---
HISTORY: Pain in the left hip for 2 weeks. TECHNIQUE: Two views of the left hip. COMPARISON: None FINDINGS: There are moderate degenerative changes in the left hip joint and mild degenerative changes in the left sacroiliac joint. No cortical erosions are seen. Alignment appears normal. No acute fracture is seen. IMPRESSION: 1. Moderate degenerative changes in the left hip with no acute osseous abnormality seen. Dictated by: Dictated on workstation # [id number]
== END ==
LOC: RAD 15:12
PROVIDERS: ATTEND Family Medicine
DX: M16.12 Unilateral primary osteoarthritis, left hip (principal)
CPT/HCPCS: 73502

== ENCOUNTER → 2021-03-14 | Outpatient (CLI) | payer BC ==
[~2021-03-14] MED LIST changes: +RT-ALBUTEROL SULF 2.5 MG/3 ML PRE-MIX VIAL INH ONE
== END ==
LOC: RT 15:30
PROVIDERS: ATTEND Nurse Practitioner Family
DX: J45.909 Unspecified asthma, uncomplicated (principal)
CPT/HCPCS: 94060; 94726; 94729

== ENCOUNTER → 2021-06-14 | Outpatient (CLI) | payer BC ==
[~2021-06-14] MED LIST changes: -RT-ALBUTEROL SULF 2.5 MG/3 ML PRE-MIX VIAL INH ONE
--- NOTE | 2021-06-15 10:17 | Diagnostic Imaging Report ---
Indication: Routine screening. Comparison is made with prior mammogram from 06/06/2020 and 06/01/2019. 2-D and 3-D bilateral screening mammography was performed with CAD. Scattered fibroglandular densities are identified bilaterally. A benign nodule in the outer left breast appears stable. No spiculated mass or malignant-appearing microcalcifications are seen. Axillae are unremarkable. IMPRESSION: BI-RADS Category 2 No mammographic features suspicious for malignancy are identified. ACR BI-RADS Category 2: Benign findings. Result letter will be mailed to the patient. Note: At least 10% of breast cancer is not imaged by mammography. Dictated by: Dictated on workstation # [id number]
== END ==
LOC: RAD 15:45
PROVIDERS: ATTEND Family Medicine
DX: Z12.31 Encounter for screening mammogram for malignant neoplasm of breast (principal)
CPT/HCPCS: 77063; 77067

== ENCOUNTER 2021-08-24 15:57 | Outpatient (RCR) | payer BC | END 2021-08-24 16:30 | disposition home or self-care (01) | PROVIDERS: ATTEND Orthopaedic Surgery | DX: Z47.1 Aftercare following joint replacement surgery (principal); Z96.642 Presence of left artificial hip joint; E11.9 Type 2 diabetes mellitus without complications; J44.9 Chronic obstructive pulmonary disease, unspecified ==

== ENCOUNTER → 2022-06-17 | Outpatient (CLI) | payer BC ==
[~2022-06-17] MED LIST changes: -CETI10TA23 PO; +CETI10TA24 PO; +MONT-40 PO; -MONT10TA32 PO
--- NOTE | 2022-06-18 12:50 | Diagnostic Imaging Report ---
INDICATION: Routine screening. COMPARISON: 06/14/2021 and 06/06/2020. TECHNIQUE: 2D and 3D bilateral screening mammography was performed with CAD. FINDINGS: Scattered fibroglandular densities are identified bilaterally. The circumscribed density in the outer left breast at posterior depth is stable. No spiculated mass or malignant-appearing microcalcifications are seen. The axillae are unremarkable. IMPRESSION: No mammographic features suspicious for malignancy are identified. ACR BI-RADS Category 2: Benign findings. Result letter will be mailed to the patient. Note: At least 10% of breast cancer is not imaged by mammography. Dictated by: Dictated on workstation # [id number]
== END ==
LOC: RAD 15:45
PROVIDERS: ATTEND Family Medicine
DX: Z12.31 Encounter for screening mammogram for malignant neoplasm of breast (principal)
CPT/HCPCS: 77063; 77067

== ENCOUNTER → 2022-10-08 | Outpatient (CLI) | payer BC ==
[~2022-10-08] VITALS: Ht 167 cm; Wt 87.0 kg
[~2022-10-08] MED LIST changes: +REGADENOSON 0.4 MG/5 ML SYR (LEXISCAN) IV ONE
[2022-10-08] MEDS: CATHETER FLUSH 10 ML SYR IVP PRN ×2 (11:25→12:56)
[2022-10-08 12:54] VITALS: BP 149/78
--- NOTE | 2022-10-09 09:32 | STRESS TEST ---
DATE OF SERVICE: 10/08/2022 RESTING AND POST REGADENOSON TECHNETIUM-99M TETROFOSMIN SPECT CT IMAGING ORDERING PHYSICIAN: CHARLOTTE Fragoso PRIMARY PHYSICIAN: Dr. Raymond. CLINICAL DIAGNOSIS: Paroxysmal atrial fibrillation. Baseline images were carried out after injection of 10.74 mCi of technetium-99m Tetrofosmin. This was followed by 0.4 mg regadenoson and 30.2 mCi of technetium-99m Tetrofosmin. The electrocardiogram showed sinus rhythm at baseline. On the electrocardiogram, old anterior and inferior wall myocardial infarction cannot be excluded. The electrocardiogram did not change significantly with regadenoson infusion. Review of images at rest and following stress does not indicate any significant perfusion defects consistent with myocardial ischemia or infarction. Gated images showed normal global left ventricular systolic function with normal regional wall motion. Left ventricular ejection fraction is calculated to be 72%. CONCLUSIONS: 1. No evidence of any significant myocardial ischemia or infarction on this study. 2. Normal regional wall motion. 3. Normal global left ventricular systolic function with a calculated ejection fraction of 72%. Job ID: [id number] DocumentID: [id number] Dictated Date: 10/09/2022 08:26:55 First Line Production Supervisor Date: 10/09/2022 09:30:00 Dictated By: LLUVIA MCKNIGHT MD; DAVE; FACP; FACC;
== END ==
LOC: CARD 11:45
PROVIDERS: ATTEND Nurse Practitioner Family
DX: I48.0 Paroxysmal atrial fibrillation (principal)
CPT/HCPCS: 78452; 93017; A9502

== ENCOUNTER → 2022-10-15 | Day surgery (SDC) | payer BC ==
[~2022-10-15] VITALS: Ht 165 cm; Wt 88.5 kg
[~2022-10-15] MED LIST changes: +LIDOCAINE 1% INJ 30 ML (XYLOCAINE) VIAL ONE; -REGADENOSON 0.4 MG/5 ML SYR (LEXISCAN) IV ONE
--- NOTE | 2022-10-15 22:08 | OPERATIVE REPORT ---
DATE OF SERVICE: 10/15/2022 PREOPERATIVE DIAGNOSES: Palpitations, paroxysmal atrial fibrillation. POSTOPERATIVE DIAGNOSES: Palpitations, paroxysmal atrial fibrillation. PROCEDURE: Implantable loop recorder implantation. INDICATIONS: The patient is a 62-year-old lady who has a history of paroxysmal atrial fibrillation. She has a history of typical atrial flutter ablation performed in 2019. She is not on oral anticoagulation. She wishes to be monitored for paroxysmal atrial fibrillation to ensure that she did not require oral anticoagulation. Previous implantable loop recorder has reached end of life. No loop recorder implantation was carried out today. DESCRIPTION OF PROCEDURE: Informed consent was obtained. Fluoroscopy indicated that the previous implantable loop recorder was in the inner upper quadrant of the breast. We did not remove it. We implanted a new implantable loop recorder superior to the old one. The left prepectoral area was prepped and draped in the usual sterile fashion. We used 1% lidocaine for local anesthesia. We used the tools provided with the [employer] LINQ II device to make a pocket anterior to the third intercostal space, into which the device was placed and the skin edges were closed using Dermabond and Steri-Strips. Serial number of the devices are [id number]. The patient tolerated the procedure well. 1. New loop recorder implantation superior to the old implantable loop recorder that has reached end of life. Job ID: [id number] DocumentID: [id number] Dictated Date: 10/15/2022 12:03:58 Purler Date: 10/15/2022 22:06:00 Dictated By: LLUVIA MCKNIGHT MD; DAVE; FACP; FACC;
== END ==
LOC: CATH 09:00
PROVIDERS: ATTEND Internal Medicine Cardiovascular Disease
DX: I48.0 Paroxysmal atrial fibrillation (principal); Z87.891 Personal history of nicotine dependence; E66.9 Obesity, unspecified; Z68.32 Body mass index [BMI] 32.0-32.9, adult; I48.92 Unspecified atrial flutter; I10 Essential (primary) hypertension; Z96.642 Presence of left artificial hip joint; I51.7 Cardiomegaly
CPT/HCPCS: 33285; C1764

== ENCOUNTER 2023-03-30 10:50 | Emergency (ER) | payer BC ==
[~2023-03-30] VITALS: Ht 167.7 cm; Wt 88.5 kg
[~2023-03-30 10:50] MED LIST changes: -LIDOCAINE 1% INJ 30 ML (XYLOCAINE) VIAL ONE
[2023-03-30 11:17] LABS: BASOPHILS # (AUTO) 0.1 10^3/uL (0.0-0.1); BASOPHILS % (AUTO) 2 % (0-10); EOSINOPHILS # (AUTO) 0.4 10^3/uL (0.0-0.3); EOSINOPHILS % (AUTO) 5 % (0-10); HEMATOCRIT 43 % (35-52); HEMOGLOBIN 15.1 g/dL (11.5-16.0); LYMPHOCYTES # (AUTO) 2.4 10^3/uL (1.0-4.0); LYMPHOCYTES % (AUTO) 30 % (12-44); MEAN CORPUSCULAR HEMOGLOBIN 30 pg (25-34); MEAN CORPUSCULAR HGB CONC 35 g/dL (32-36); MEAN CORPUSCULAR VOLUME 85 fL (80-99); MEAN PLATELET VOLUME 10.4 fL (9.0-12.2); MONOCYTES # (AUTO) 0.5 10^3/uL (0.0-1.0); MONOCYTES % (AUTO) 6 % (0-12); NEUTROPHILS # (AUTO) 4.8 10^3/uL (1.8-7.8); NEUTROPHILS % (AUTO) 58 % (42-75); PLATELET COUNT 304 10^3/uL (130-400); WHITE BLOOD COUNT 8.2 10^3/uL (4.3-11.0)
--- NOTE | 2023-03-30 11:18 | ED Respiratory ---
General Chief Complaint: Respiratory Problems Stated Complaint: SOA/DIZZINESS Source: patient Exam Limitations: no limitations History of Present Illness Date Seen by Provider: Mar 30, 2023 Time Seen by Provider: 11:00 Initial Comments 62-year-old female presents to the ER with complaints of dizziness and shortness of air. She states that she has been dealing with this for a while, but states it has become much worse today. She reports she feels dizzy all the time, except for when she is lying down. She states the dizziness occurs when she is sitting, standing, and walking. She described it as a as kind of like the room is spinning, although she was not confident in this. She reports shortness of air all day, but worse with walking. She has a [employer] device that was placed on October [address] Parson who is monitoring it. She has had an ablation in the past tachyarrhythmia. Other medical history includes diabetes and asthma. She denies fevers, cough, chest pain, abdominal pain, diarrhea. Does report some nausea. She reports bilateral lower extremity edema, states her legs look good in the morning, but the edema is worse in the evening. Allergies and Home Medications Allergies Coded Allergies: codeine (Verified Allergy, Mild, CONFUSION, MAKES HER "LOOPY", 07/13/19) Patient Home Medication List Home Medication List Reviewed: Yes Cetirizine HCl (Cetirizine HCl) 10 Mg Tab.chew, 10 MG PO DAILY, (Reported) Entered as Reported by: BART MORALES on 12/14/18 0726 Flaxseed Oil (Flaxseed Oil) 1,000 Mg Capsule, 1,000 MG PO DAILY, (Reported) Entered as Reported by: DION JURADO on 12/11/18 110 Fluticasone/Vilanterol (Breo Ellipta 200-25 Mcg INH) 1 Each Blst.w.dev, 1 PUFF IH BID, (Reported) Entered as Reported by: DION JURADO on 12/11/18 110 Glyburide (Glyburide) 5 Mg Tablet, 5 MG PO DAILY, (Reported) Entered as Reported by: DION JURADO on 12/11/18 110 Hydrochlorothiazide (Hydrochlorothiazide) 50 Mg Tablet, 50 MG PO DAILY, (Reported) Entered as Reported by: DION JURADO on 12/11/18 110 Lactobacillus Rhamnosus GG (Culturelle) 1 Each Capsule, 1 EACH PO DAILY, (Reported) Entered as Reported by: DION JURADO on 12/11/18 110 Meclizine HCl (Meclizine HCl) 25 Mg Tablet, 25 MG PO Q6H Prescribed by: Brenda Cook on 03/30/23 1632 Metformin HCl (Metformin HCl) 1,000 Mg Tablet, 1,000 MG PO BID, (Reported) Entered as Reported by: DION JURADO on 12/11/18 110 Montelukast Sodium (Montelukast Sodium) 10 Mg Tablet, 10 MG PO DAILY, (Reported) Entered as Reported by: DION JURADO on 12/11/18 110 Potassium Chloride (Potassium Chloride) 20 Meq Tablet.er, 20 MEQ PO DAILY, (Reported) Entered as Reported by: DION JURADO on 12/11/18 110 Rivaroxaban (Xarelto) 10 Mg Tablet, 10 MG PO DAILY, (Reported) Entered as Reported by: NAVA MARTINEZ on 07/13/19 1433 Review of Systems Review of Systems Constitutional: see HPI Past Ahdltso-Twvrej-Hpyhpz Hx Immunizations Up To Date Tetanus Booster (TDap): Unknown Seasonal Allergies Seasonal Allergies: Yes Past Medical History Surgeries: Yes (eyelid lift, neck fusion, CARDIAC ABLATION) Eye Surgery, Hysterectomy, Joint Replacement, Tubal Ligation Respiratory: Yes Asthma, Sleep Apnea Currently Using CPAP: Yes Currently Using BIPAP: No Cardiac: Yes (atrial flutter, ABLATION FOR SVT) High Cholesterol, Irregular Heartbeat Neurological: No 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 0.0oz. 99.688909ux; 32.50 BMI Method:Stated General Appearance: WD/WN, no apparent distress Neck: supple, normal inspection Respiratory: lungs clear, normal breath sounds, no respiratory distress, no accessory muscle use Cardiovascular: regular rate, rhythm Extremities: normal range of motion, normal inspection, no pedal edema Neurologic/Psychiatric: alert, normal mood/affect Skin: normal color, warm/dry Progress/Results/Core Measures Suspected Sepsis SIRS Temperature: Pulse: Respiratory Rate: Laboratory Tests 03/30/23 11:10: White Blood Count 8.2 Blood Pressure / Mean: Laboratory Tests 03/30/23 11:10: Creatinine 0.94, INR Comment 1.0, Platelet Count 304, Total Bilirubin 0.5 Results/Orders Lab Results Laboratory Tests Test 03/30/23 11:10 03/30/23 13:24 03/30/23 15:45 Range/Units White Blood Count 8.2 4.3-11.0 10^3/uL Red Blood Count 5.07 3.80-5.11 10^6/uL Hemoglobin 15.1 11.5-16.0 g/dL Hematocrit 43 35-52 % Mean Corpuscular Volume 85 80-99 fL Mean Corpuscular Hemoglobin 30 25-34 pg Mean Corpuscular Hemoglobin Concent 35 32-36 g/dL Red Cell Distribution Width 12.8 10.0-14.5 % Platelet Count 304 130-400 10^3/uL Mean Platelet Volume 10.4 9.0-12.2 fL Immature Granulocyte % (Auto) 1 % Neutrophils (%) (Auto) 58 42-75 % Lymphocytes (%) (Auto) 30 12-44 % Monocytes (%) (Auto) 6 0-12 % Eosinophils (%) (Auto) 5 0-10 % Basophils (%) (Auto) 2 0-10 % Neutrophils # (Auto) 4.8 1.8-7.8 10^3/uL Lymphocytes # (Auto) 2.4 1.0-4.0 10^3/uL Monocytes # (Auto) 0.5 0.0-1.0 10^3/uL Eosinophils # (Auto) 0.4 H 0.0-0.3 10^3/uL Basophils # (Auto) 0.1 0.0-0.1 10^3/uL Immature Granulocyte # (Auto) 0.1 0.0-0.1 10^3/uL Prothrombin Time 13.2 12.2-14.7 SEC INR Comment 1.0 0.8-1.4 Activated Partial Thromboplast Time 28 24-35 SEC Sodium Level 141 135-145 MMOL/L Potassium Level 3.3 L 3.6-5.0 MMOL/L Chloride Level 101 98-107 MMOL/L Carbon Dioxide Level 28 21-32 MMOL/L Anion Gap 12 5-14 MMOL/L Blood Urea Nitrogen 15 7-18 MG/DL Creatinine 0.94 0.60-1.30 MG/DL Estimat Glomerular Filtration Rate 68 BUN/Creatinine Ratio 16 Glucose Level 136 H 70-105 MG/DL Calcium Level 9.9 8.5-10.1 MG/DL Corrected Calcium 9.8 8.5-10.1 MG/DL Magnesium Level 1.6 1.6-2.4 MG/DL Total Bilirubin 0.5 0.1-1.0 MG/DL Aspartate Amino Transf (AST/SGOT) 14 5-34 U/L Alanine Aminotransferase (ALT/SGPT) 18 0-55 U/L Alkaline Phosphatase 122 40-136 U/L Troponin I < 0.028 < 0.028 < 0.028 <0.028 NG/ML B-Type Natriuretic Peptide 47.6 <100.0 PG/ML Total Protein 7.0 6.4-8.2 GM/DL Albumin 4.1 3.2-4.5 GM/DL My Orders Orders - BRENDA COOK SCIENCE INSTRUCTOR Cbc With Automated Diff (03/30/23 11:10) Magnesium (03/30/23 11:10) Chest 1 View, Ap/Pa Only (03/30/23 11:10) Ekg Tracing (03/30/23 11:10) Comprehensive Metabolic Panel (03/30/23 11:10) Protime With Inr (03/30/23 11:10) Partial Thromboplastin Time (03/30/23 11:10) Ed Iv/Invasive Line Start (03/30/23 11:10) Bnp Góme[place] (03/30/23 11:10) Troponin I [place] (03/30/23 11:10) Meclizine Tablet (Antivert Tablet) (03/30/23 11:30) Potassium Chloride (Tablet) (K Dur Table (03/30/23 12:30) Troponin I [place] (03/30/23 12:44) Troponin I [place] (03/30/23 15:45) Medications Given in ED Current Medications Medications Dose Ordered Sig/Shila Route Start Time Stop Time Status Last Admin Dose Admin Meclizine HCl 25 mg ONCE ONCE PO 03/30/23 11:30 03/30/23 11:31 DC 03/30/23 11:43 25 MG Potassium Chloride 40 meq ONCE ONCE PO 03/30/23 12:30 03/30/23 12:31 DC 03/30/23 12:39 40 MEQ Vital Signs/I&O 03/30/23 03/30/23 03/30/23 10:55 10:55 16:45 Temp 36.6 36.0 Pulse 81 76 Resp 18 17 B/P (MAP) 150/82 (104) 112/52 Pulse Ox 97 96 O2 Delivery Room Air Room Air Room Air Capillary Refill : Progress Note : Progress Note Patient seen and evaluated, resting comfortably in bed, no acute distress. Based on exam and symptoms, work-up initiated including CBC, CMP, coags, magnesium, troponin, BNP, chest x-ray, EKG. meclizine ordered for dizziness. 1244 Labs and x-ray reviewed. CBC grossly normal. CMP grossly normal, potassium slightly low 3.3, glucose slightly elevated 136. Magnesium normal 1.6. Troponin negative. BNP normal. Coags normal. Chest x-ray negative for any acute cardiopulmonary findings. Oral potassium ordered for decreased potassium. On reevaluation of patient, patient states her dizziness feels better after meclizine. She reports that she had some chest tightness that started just prior to me walking back into the room. We will repeat her troponin level at this time. 1445 repeat troponin negative. Will do a 3-hour troponin at 1545. Patient was able to walk to the bathroom without difficulty. She reported only mild shortness of air and mild dizziness when walking. 1628 3-hour troponin negative. Results discussed with patient. Will discharge patient with prescription for meclizine since this seemed to help her dizziness. Discharge instructions and return precautions provided. ECG Initial ECG Impression Date: Mar 30, 2023 Initial ECG Impression Time: 11:52 Initial ECG Rate: 64 Initial ECG Rhythm: Normal Sinus Initial ECG Intervals: Normal Initial ECG Comparisson: Unchanged Comment Incomplete left bundle branch block. No significant Q waves, ST elevation, or T wave inversion. Diagnostic Imaging Diagonstic Imaging: Xray Plain Films/CT/US/NM/MRI: chest Comments [facility], [place] NAME: BATSHEVA SOLIS [facility] REC#: [id number] PT STATUS: REG ER : 1960 PHYSICIAN: BRENDA COOK APRN ADMIT DATE: 03/30/23/ER Signed Date of Exam:03/30/23 CHEST 1 VIEW, AP/PA ONLY INDICATION: Chest pain. COMPARISON: 11/24/2018. DISCUSSION: Single portable upright view of the chest was obtained. Implantable loop recorder is now present. Normal heart size. No consolidation, pleural fluid, or pneumothorax. No osseous abnormality. IMPRESSION: 1. Negative chest. Dictated by: Dictated on workstation # [id number] Dict: 03/30/23 1208 Trans: 03/30/23 1451 [id number] Interpreted by: GEMA SHIELDS MD Electronically signed by: GEMA SHIELDS MD 03/30/23 1451 Departure Impression Primary Impression: Vertigo Additional Impression: Shortness of breath Disposition: 01 HOME, SELF-CARE Condition: Stable Departure-Patient Inst. Decision time for Depature: 16:30 Referrals: TIN RUIZ MD (PCP/Family) Primary Care Physician Patient Instructions: Vertigo (a type of dizziness), Shortness of Breath, Adult ED Add. Discharge Instructions: Take meclizine as needed for dizziness. It can cause drowsiness. Follow-up with your primary care provider and Dr. Lopez if symptoms continue. Return for chest pain, severe shortness of breath, worsening dizziness, or any other new, concerning, or worsening symptoms. All discharge instructions reviewed with patient and/or family. Voiced understanding. Scripts Meclizine HCl (Meclizine HCl) 25 Mg Tablet 25 MG PO Q6H, #28 TAB 0 Refills Prov: BRENDA COOK APRN 03/30/23 BRENDA COOK APRN Mar 30, 2023 11:18
[2023-03-30 11:29] LABS: ALBUMIN 4.1 GM/DL (3.2-4.5); CHLORIDE 101 MMOL/L (98-107); POTASSIUM 3.3 MMOL/L (3.6-5.0); SODIUM 141 MMOL/L (135-145)
[2023-03-30 11:30] LABS: CALCIUM 9.9 MG/DL (8.5-10.1); PROTHROMBIN TIME PATIENT 13.2 SEC (12.2-14.7)
[2023-03-30] MEDS ORDERED: MECLIZINE 25 MG (ANTIVERT) TAB PO ONE (11:30)
[2023-03-30 11:31] LABS: GLUCOSE 136 MG/DL (70-105)
[2023-03-30 11:32] LABS: CARBON DIOXIDE 28 MMOL/L (21-32)
[2023-03-30 11:33] LABS: BILIRUBIN,TOTAL 0.5 MG/DL (0.1-1.0)
[2023-03-30 11:35] LABS: ALKALINE PHOSPHATASE 122 U/L (40-136); CREATININE SERUM 0.94 MG/DL (0.60-1.30); GFR ESTIMATED 68
[2023-03-30 11:36] LABS: BUN/CREATININE RATIO 16
[2023-03-30 11:37] LABS: MAGNESIUM 1.6 MG/DL (1.6-2.4)
[2023-03-30 11:38] LABS: ALANINE AMINOTRANSFERASE 18 U/L (0-55)
--- NOTE | 2023-03-30 12:15 | Diagnostic Imaging Report ---
INDICATION: Chest pain. COMPARISON: 11/24/2018. DISCUSSION: Single portable upright view of the chest was obtained. Implantable loop recorder is now present. Normal heart size. No consolidation, pleural fluid, or pneumothorax. No osseous abnormality. IMPRESSION: 1. Negative chest. Dictated by: Dictated on workstation # [id number]
[2023-03-30] MEDS ORDERED: KCL 20 MEQ TAB (K-DUR) PO ONE (12:30)
[2023-03-30] MEDS ORDERED: MECL-149 PO (16:32)
[2023-03-30 16:45] VITALS: BP 112/52
== END 2023-03-30 16:46 | disposition home or self-care (01) ==
LOC: EDUNIT# 10:50 → ER 10:52
DX: R42 Dizziness and giddiness (principal); R06.02 Shortness of breath; R07.89 Other chest pain; I44.7 Left bundle-branch block, unspecified; G47.30 Sleep apnea, unspecified; Z99.89 Dependence on other enabling machines and devices
CPT/HCPCS: 36415; 71045; 80053; 83735; 83880; 84484; 85025; 85610; 85730

== ENCOUNTER → 2023-06-20 | Outpatient (CLI) | payer BC ==
[~2023-06-20] MED LIST changes: +MECL-149 PO; +POTA-330 PO; -POTA-51 PO
--- NOTE | 2023-06-20 15:57 | Diagnostic Imaging Report ---
INDICATION: Routine screening. COMPARISON is made with prior mammogram from 06/17/2022. 2-D and 3-D bilateral screening mammography was performed with CAD. Scattered fibroglandular densities are identified bilaterally. Benign nodule in the left breast is stable. Cardiac loop recorder overlies the medial left breast tissues. No spiculated mass or malignant-appearing microcalcifications are seen. Axillae are unremarkable. IMPRESSION: BI-RADS Category 2 No mammographic features suspicious for malignancy are identified. ACR BI-RADS Category 2: Benign findings. Result letter will be mailed to the patient. Note: At least 10% of breast cancer is not imaged by mammography. Dictated by: Dictated on workstation # [id number]
== END ==
LOC: RAD 15:45
PROVIDERS: ATTEND Family Medicine
DX: Z12.31 Encounter for screening mammogram for malignant neoplasm of breast (principal)
CPT/HCPCS: 77063; 77067

== ENCOUNTER → 2023-08-26 | Outpatient (RCR) | payer BC ==
[~2023-08-26] MED LIST changes: -MECL-149 PO; +MECL-291 PO
== END | disposition home or self-care (01) ==
PROVIDERS: ATTEND Anesthesiology Pain Medicine
DX: M47.816 Spondylosis without myelopathy or radiculopathy, lumbar region (principal); M62.5A2 Muscle wasting and atrophy, not elsewhere classified, back, lumbosacral

== ENCOUNTER 2023-09-08 15:29 | Outpatient (RCR) | payer BC | END 2023-09-08 16:30 | disposition home or self-care (01) | PROVIDERS: ATTEND Anesthesiology Pain Medicine | DX: M47.816 Spondylosis without myelopathy or radiculopathy, lumbar region (principal); M62.5A2 Muscle wasting and atrophy, not elsewhere classified, back, lumbosacral ==